=== PATIENT | male | born 1955 | race Caucasian/White ===

== ENCOUNTER 2016-05-19 15:54 | Emergency (ER) | payer BC ==
[~2016-05-19] VITALS: Ht 172.7 cm; Wt 136.2 kg
[~2016-05-19 15:54] MED LIST: BUME1TAB PO; GLC/500 PO; IBUP-1050 PO; INSDGI SC; LISI20TA3 PO; NVLGI SC; SILD100T PO
[2016-05-19 16:00] VITALS: TEMP 36.6; Ht 172.7 cm; Wt 136.2 kg
[2016-05-19] MEDS ORDERED: METF-384 PO (16:20)
[2016-05-19 16:23] VITALS: O2SAT 96
[2016-05-19 16:35] LABS: BASO % 0.7 %; BASO ABS # 0.05 K/uL (0-0.2); COMPLETE YES; EOS % 2.1 %; HEMATOCRIT 41.7 % (42-52); IG% 0.3 %; LYMPH % 26.9 %; LYMPH ABS # 2.04 K/uL (1.2-3.4); MEAN CELL VOLUME 86.9 fL (80-100); MEAN CORPUSCULAR HEMOGLOBIN 31.3 pg (25-34); MEAN PLATELET VOLUME 9.3 fL (7.4-10.4); PLATELET COUNT 263 K/uL (130-400); WHITE BLOOD COUNT 7.59 K/uL (4.8-10.8)
--- NOTE | 2016-05-19 16:37 | DIAGNOSTIC IMAGING REPORT ---
SINGLE VIEW CHEST CLINICAL HISTORY: Fever. Sepsis. FINDINGS: An AP, portable, upright chest radiograph is compared to study dated 09/25/2014 and correlated with chest CT dated 02/13/2016. The examination is degraded by portable technique, apical lordotic positioning, large body habitus, and patient rotation. The heart is enlarged and there is atherosclerotic calcification of the thoracic aorta. The pulmonary vasculature is noncongested. The there is mild bibasilar atelectasis. No airspace consolidation or large pleural effusion is identified. No pneumothorax is seen. The skeletal structures are osteopenic. Degenerative change is noted in the shoulders and thoracic spine. IMPRESSION: Cardiac enlargement with no acute cardiopulmonary abnormality. Electronically signed by: Hi Machado M.D. 05/19/2016 4:35 PM Dictated Date/Time: 05/19/2016 4:34 PM
[2016-05-19 16:49] LABS: PARTIAL THROMBOPLASTIN RATIO 0.9; PROTHROMBIN TIME (PATIENT) 10.6 SECONDS (9.0-12.0)
[2016-05-19 16:54] LABS: ALT/SGPT 38 U/L (12-78); AST/SGOT 17 U/L (15-37); BLOOD UREA NITROGEN 22 mg/dl (7-18); BUN/CREATININE RATIO 20.4 (10-20); CARBON DIOXIDE 24 mmol/L (21-32); CHLORIDE 105 mmol/L (98-107); GLUCOSE 151 mg/dl (70-99); POTASSIUM 4.4 mmol/L (3.5-5.1); SODIUM 140 mmol/L (136-145)
[2016-05-19 17:05] LABS: ALKALINE PHOSPHATASE 66 U/L (45-117); CKMB/CK RATIO 1.8 (0-3.0)
--- NOTE | 2016-05-19 17:47 | EMERGENCY ROOM VISIT NOTE ---
History Report prepared by Nasim: Amada Gonzalez Under the Supervision of: Dr. Navarro Alvarado D.O. First contact with patient: 16:04 Chief Complaint: CARDIAC ASSESSMENT Stated Complaint: CHEST PRESSURE, SWEATING, SOB, RAPID HEARTBEAT History of Present Illness The patient is a 61 year old male who presents to the Emergency Room with complaints of persistent chest pressure since 1100 this morning. He states that he currently feels "crappy". He has a history of PVCs and some SVT. The patient reports that he is also experiencing shortness of breath and diaphoresis. He denies any nausea. He follows with a heart rhythm specialist and takes Tambocor and metoprolol. He reports that he took medications this morning, but the pressure is still present. He experiences this pressure regularly, but states that the episodes are usually shorter. He has previously had a cardiac catheterization on February 17 of last year. The patient states that he does not have coronary artery disease. The patient denies being on aspirin or any blood thinners. Source of History: patient Onset: 1100 this morning Position: chest Quality: pressure Timing: other (persistent) Associated Symptoms: + SOB, + diaphoresis, No nausea Review of Systems See HPI for pertinent positives & negatives. A total of 10 systems reviewed and were otherwise negative. Past Medical & Surgical Medical Problems: (1) Diabetes (2) Diverticulitis (3) Diverticulitis (4) Hypertension (5) Kidney stones Family History FH: heart disease Gallbladder disease Hypertension Social History Smoking Status: Never Smoker Alcohol Use: none Drug Use: none Marital Status: Housing Status: lives with significant other Occupation Status: employed Current/Historical Medications Scheduled Bumetanide (Bumex), 0.5 MG PO QAM Insulin Aspart (Novolog), 15 UNITS SC UD Insulin Glargine (Lantus), 40 UNITS SC AMPM Lisinopril (Prinivil), 20 MG PO QAM Metformin Hcl (Glucophage), 1,500 MG PO DAILY Scheduled PRN Ibuprofen (Advil), 800 MG PO BID PRN for Pain Allergies Coded Allergies: No Known Allergies (Verified , 05/19/16) Physical Exam Vital Signs Date Time Temp Pulse Resp B/P Pulse Ox O2 Delivery O2 Flow Rate FiO2 05/19/16 17:38 60 16 160/79 99 Nasal Cannula 2.0 05/19/16 17:15 55 05/19/16 16:46 Nasal Cannula 2.0 05/19/16 16:23 96 Room Air 05/19/16 16:21 92 18 141/45 96 Room Air 05/19/16 16:00 36.6 61 20 147/80 96 Room Air Physical Exam CONSTITUTIONAL/VITAL SIGNS: Reviewed / noted above. GENERAL: Non-toxic in appearance. INTEGUMENTARY: Warm, dry, and [place]. HEAD: Normocephalic. EYES: without scleral icterus or trauma. ENT/OROPHARYNX: clear and moist. LYMPHADENOPATHY/NECK: Is supple without lymphadenopathy or meningismus. RESPIRATORY: Lungs clear and equal. CARDIOVASCULAR: Regular rate and slightly irregular rhythm. GI/ABDOMEN: Soft and nontender. No organomegaly or pulsatile mass. No rebound or guarding. Normal bowel sounds. EXTREMITIES: Warm and well perfused. BACK: No CVA tenderness. NEUROLOGICAL: Intact without focal deficits. PSYCHIATRIC: normal affect. MUSCULOSKELETAL: Normally developed with good muscle tone. Medical Decision & Procedures ER Provider Diagnostic Interpretation: X ray results and stated below per my interpretation and radiology interpretation. SINGLE VIEW CHEST CLINICAL HISTORY: Fever. Sepsis. FINDINGS: An AP, portable, upright chest radiograph is compared to study dated 09/25/2014 and correlated with chest CT dated 02/13/2016. The examination is degraded by portable technique, apical lordotic positioning, large body habitus, and patient rotation. The heart is enlarged and there is atherosclerotic calcification of the thoracic aorta. The pulmonary vasculature is noncongested. The there is mild bibasilar atelectasis. No airspace consolidation or large pleural effusion is identified. No pneumothorax is seen. The skeletal structures are osteopenic. Degenerative change is noted in the shoulders and thoracic spine. IMPRESSION: Cardiac enlargement with no acute cardiopulmonary abnormality. Electronically signed by: Hi Machado M.D. 05/19/2016 4:35 PM Laboratory Results 05/19/16 16:15 Red Blood Count 4.80, Mean Corpuscular Volume 86.9, Mean Corpuscular Hemoglobin 31.3, Mean Corpuscular Hemoglobin Concent 36.0, Mean Platelet Volume 9.3, Neutrophils (%) (Auto) 62.0, Lymphocytes (%) (Auto) 26.9, Monocytes (%) (Auto) 8.0, Eosinophils (%) (Auto) 2.1, Basophils (%) (Auto) 0.7, Neutrophils # (Auto) 4.71, Lymphocytes # (Auto) 2.04, Monocytes # (Auto) 0.61, Eosinophils # (Auto) 0.16, Basophils # (Auto) 0.05 05/19/16 16:15 Test 05/19/16 16:15 White Blood Count 7.59 K/uL (4.8-10.8) Red Blood Count 4.80 M/uL (4.7-6.1) Hemoglobin 15.0 g/dL (14.0-18.0) Hematocrit 41.7 % (42-52) Mean Corpuscular Volume 86.9 fL (80-100) Mean Corpuscular Hemoglobin 31.3 pg (25-34) Mean Corpuscular Hemoglobin Concent 36.0 g/dl (32-36) Platelet Count 263 K/uL (130-400) Mean Platelet Volume 9.3 fL (7.4-10.4) Neutrophils (%) (Auto) 62.0 % Lymphocytes (%) (Auto) 26.9 % Monocytes (%) (Auto) 8.0 % Eosinophils (%) (Auto) 2.1 % Basophils (%) (Auto) 0.7 % Neutrophils # (Auto) 4.71 K/uL (1.4-6.5) Lymphocytes # (Auto) 2.04 K/uL (1.2-3.4) Monocytes # (Auto) 0.61 K/uL (0.11-0.59) Eosinophils # (Auto) 0.16 K/uL (0-0.5) Basophils # (Auto) 0.05 K/uL (0-0.2) RDW Standard Deviation 44.0 fL (36.4-46.3) RDW Coefficient of Variation 13.9 % (11.5-14.5) Immature Granulocyte % (Auto) 0.3 % Immature Granulocyte # (Auto) 0.02 K/uL (0.00-0.02) Prothrombin Time 10.6 SECONDS (9.0-12.0) Prothromb Time International Ratio 1.0 (0.9-1.1) Activated Partial Thromboplast Time 23.3 SECONDS (21.0-31.0) Partial Thromboplastin Ratio 0.9 Anion Gap 11.0 mmol/L (3-11) Est Creatinine Clear Calc Drug Dose 92.9 ml/min Estimated GFR () 82.4 Estimated GFR (Non- 71.1 BUN/Creatinine Ratio 20.4 (10-20) Calcium Level 9.0 mg/dl (8.5-10.1) Total Bilirubin 0.4 mg/dl (0.2-1) Direct Bilirubin < 0.1 mg/dl (0-0.2) Aspartate Amino Transf (AST/SGOT) 17 U/L (15-37) Alanine Aminotransferase (ALT/SGPT) 38 U/L (12-78) Alkaline Phosphatase 66 U/L (45-117) Total Creatine Kinase 101 U/L (39-308) Creatine Kinase MB 1.8 ng/ml (0.5-3.6) Creatine Kinase MB Ratio 1.8 (0-3.0) Troponin I < 0.015 ng/ml (0-0.045) Total Protein 7.1 gm/dl (6.4-8.2) Albumin 3.7 gm/dl (3.4-5.0) Lipase 187 U/L (73-393) Thyroid Stimulating Hormone (TSH) 1.280 uIu/ml (0.300-4.500) Laboratory results as stated above per my review. ECG Indication: chest pain Rate (beats per minute): 65 Rhythm: sinus rhythm Findings: PVC, other (no acute injury) Comparison ECG Date: 2015 Change: no significant change ED Course 1605: Previous medical records were reviewed. The patient was evaluated in room A3. A complete history and physical examination was performed. 1748: I reevaluated the patient. He is resting comfortable. I discussed the results and treatment plan with him. He verbalized complete understanding and agreement. He will be discharged home. Medical Decision the differential was considered includes acute myocardial infarction, acute coronary syndrome, myocarditis, pericarditis, pericardial effusions /tamponade, esophageal perforation, thoracic aortic dissection, pulmonary embolism, pneumonia, pneumothorax, pancreatitis, shingles, acute cholecystitis, perforated abdominal viscus. This is a 61-year-old male who presents to the ED with a chief complaint of chest pressure, palpitations, some shortness of breath and some sweating. The patient states that he has had similar symptoms in the past. They have not lasted this long. He states that his symptoms started today around 11 AM. He has had symptoms since that time. The patient is having the symptoms during his ED evaluation. He had a cardiac catheterization February [address] Healy that revealed mild LAD disease and an ejection fraction of 45-50%. The patient' s monitor reveals unifocal frequent PVCs. There are occasionally trigeminy and sometimes every fifth or sixth beat. His exam was otherwise normal. A 12-lead EKG was compared to a previous EKG. There was no significant change with exception of the occasional PVC. Chest x-ray was negative for acute disease. CBC did not reveal anemia or leukocytosis. Complete medical panel was unremarkable. His troponin is negative. TSH is normal. The patient was told the results of the test. He is felt to be stable for discharge and outpatient follow-up. Impression Primary Impression: PVC's (premature ventricular contractions) Scribe Attestation The scribe's documentation has been prepared under my direction and personally reviewed by me in its entirety. I confirm that the note above accurately reflects all work, treatment, procedures, and medical decision making performed by me. Departure Information Dispostion Home / Self-Care Referrals Agus Case M.D.([facility]) (PCP) Patient Instructions My [facility] Additional Instructions Follow-up with your doctor for further care and evaluation in 1-2 days. Return to the emergency department for worsening or new symptoms or any concerns. You have been examined and treated today on an emergency basis only. This is not a substitute for, or an effort to provide, complete comprehensive medical care. It is impossible to recognize and treat all injuries or illnesses in a single emergency department visit. It is therefore important that you follow up closely with your doctor. Call as soon as possible for an appointment.
[2016-05-19 18:25] VITALS: BP 176/96; PULSE 64; O2SAT 98
[2016-07-15] MEDS ORDERED: METO1TAB31 PO (10:02)
[2016-07-15] MEDS ORDERED: FLEC100T21 PO (10:04)
== END 2016-05-19 18:27 | disposition home or self-care (01) ==
LOC: C.EDB 15:56 → C.EDA 18:27
DX: I49.3 Ventricular premature depolarization (principal); Z79.899 Other long term (current) drug therapy; E11.9 Type 2 diabetes mellitus without complications; I10 Essential (primary) hypertension; Z87.442 Personal history of urinary calculi; Z82.49 Family history of ischemic heart disease and other diseases of the circulatory system; Z79.4 Long term (current) use of insulin

== ENCOUNTER 2016-07-14 11:01 | Observation (INO) | payer BC ==
[2016-07-14] VITALS (7 sets, daily range): BP systolic 129–176; BP diastolic 82–92; PULSE 60–90; TEMP 36.6–36.7; O2SAT 96–98; Ht 172.7 cm; Wt 133.4 kg
[~2016-07-14] VITALS: Ht 172.7 cm; Wt 133.4 kg
[~2016-07-14 11:01] MED LIST changes: -GLC/500 PO; +METF-384 PO; -SILD100T PO
[2016-07-14] MEDS ORDERED: METO25TA56 PO (13:13)
[2016-07-14] MEDS ORDERED: FLEC50TA20 PO (13:13)
--- NOTE | 2016-07-14 13:43 | History & Physical Bridge Note ---
H&P Re-Evaluation Bridge Note: I have examined the patient, reviewed the History & Physical and in the interval since the performance of the History & Physical I have noted the following changes of clinical significance: No changes noted
--- NOTE | 2016-07-14 13:44 | Procedure Note ---
Pre-Mod Sedation Assessment General Date of Moderate Sedation: July 14, 2016. Vital Signs: Vital Signs Past 12 Hours Date Time Temp Pulse Resp B/P Pulse Ox O2 Delivery O2 Flow Rate FiO2 07/14/16 12:38 36.7 60 16 176/82 96 Room Air Review Cardiovascular: regular rate, rhythm, + extra beats Abdomen: soft Lungs: lungs clear Airway Class: II Pre-Sedation Airway Assessment Oral Cavity: WNL Short Thick Neck: Yes Hx of Sleep Apnea: Yes Smoking Status: Never Smoker Mallampati Classification: Class II ASA Classification: Class II Procedure Planning Contraindications-for Mod Sed: None Yes Notes The planned sedation has been discussed with the patient and consent obtained. I have identified the patient, determined the appropriateness of sedation and have assessed the patient immediately prior to the procedure. All medicine(s) and interventions are by my order.
[2016-07-14] MEDS ORDERED: HEPARIN SOD (PORCINE) 1000 UNIT/ML 10 ML VIAL ONE ×2 (14:13→15:28)
[2016-07-14] MEDS ORDERED: ISOPROTERENOL 200 MCG / 50ML D5W IV ONE (14:32)
[2016-07-14] MEDS ORDERED: HEPARIN 25000 UNIT/500 ML D5W ONE (14:44)
[2016-07-14] MEDS ORDERED: FENTANYL CITRATE INJ 50 MCG/1 ML 2 ML VIAL ONE (15:09)
[2016-07-14] MEDS ORDERED: MIDAZOLAM HCL 5 MG/ML 1 ML VIAL ONE (15:09)
--- NOTE | 2016-07-14 15:39 | HISTORY & PHYSICAL EXAMINATION ---
DATE OF ADMISSION: 07/14/2016 HISTORY OF PRESENT ILLNESS: This is a 61-year-old gentleman who I saw in my office back in May due to symptomatic PVCs refractory to flecainide. He was scheduled to have a PVC ablation; however, he ended up with bronchitis, so the PVC ablation was rescheduled until today. He continues to feel symptomatic with the PVCs, having palpitations and some dyspnea on exertion and some generalized fatigue with bradycardia. PAST MEDICAL HISTORY: Obstructive sleep apnea, on CPAP; hypertension; diabetes; PVCs; sinus bradycardia. PAST SURGICAL HISTORY: Arthroscopy of the knee in the left knee x2, spine surgery L4-S1, shoulder arthroscopy on the left, anal surgery status post anal fistula repair x2, drain and incision of a perirectal abscess, tonsillectomy, lumbar laminectomy of L3-L5, colonoscopy. HOME MEDICATIONS: Bumex 0.5 mg daily, metoprolol 25 mg twice a day, flecainide 50 mg twice a day, NovoLog insulin, Lantus 40 units in the morning and 40 units in the afternoon or in the evening, metformin, and lisinopril. ALLERGIES: No known drug allergies. FAMILY HISTORY: His mother had cancer. Father had cirrhosis of the liver, nonalcoholic. SOCIAL HISTORY: He is . He is a lifelong nonsmoker. No significant alcohol use. REVIEW OF SYSTEMS: Positive for shortness of breath, chest pain, palpitations, fatigue, dizziness and lightheadedness. Otherwise, all other 10-point review of systems reviewed and essentially negative at this time. PHYSICAL EXAMINATION: VITAL SIGNS: Temperature 36.7 degrees Celsius, heart rate 60, respirations 16, blood pressure 176/82, oxygen saturation 96%. GENERAL: He is awake, alert and oriented x3, in no acute distress, sitting up in the bed comfortably. HEENT: Normocephalic, atraumatic. Extraocular motion intact. Sclerae nonicteric. Mucous membranes moist. NECK: Supple, no JVD. CARDIOVASCULAR: Normal S1, S2. Regular rate and rhythm. No murmur. Positive rare occasional PVC. PULMONARY: Clear to auscultation bilaterally. No wheezes, rales or rhonchi. ABDOMEN: Positive bowel sounds, soft, nontender, nondistended. EXTREMITIES: No clubbing or cyanosis about the fingers. No edema bilateral lower extremities. Peripheral pulses intact. NEUROLOGIC: Grossly intact. SKIN: Grossly intact. PERTINENT TESTING: Holter monitor in May 2016 on flecainide 24-hour monitor, he had sinus rhythm with right bundle branch block, rare APCs and frequent PVCs about 11% in the 24-hour period and his symptoms correlated with PVCs. EKG 05/19/2016 at [facility], sinus rhythm at 65 beats per minute, PVCs, and right bundle branch block. EKG on 12/22/2015 sinus rhythm with PVCs, he receives superior access with an early R to S transition in V2 and left bundle morphology. Echocardiogram in March 2016; LV cavity size mildly enlarged, mild concentric LVH, EF is estimated to be 50% to 54%, right ventricle appears mildly dilated in some views, normal systolic function, left ventricular diastolic dysfunction grade 1, mild aortic valve sclerosis but no stenosis, and no other significant valvular pathology. Cardiac catheters, a Zio Patch in February 2016; frequent PVCs unifocal with 9.5% over the 2-week time, some SVT. Cardiac catheterization at [facility] in February 2017; left main is okay, LAD luminal irregularities, circumflex okay, RCA is a dominant vessel and is okay. Ejection fraction by the LV gram was 40% to 45%. His LVEDP was elevated. IMPRESSION: 1. Premature ventricular contractions, symptomatic unifocal with periodic early R to S transition in V2 and a left bundle morphology. 2. Sinus bradycardia. 3. Right bundle branch block. 4. Hypertension. 5. Mild nonischemic cardiomyopathy, ejection fraction 50%. 6. Diabetes. 7. Obstructive sleep apnea on CPAP. PLAN: Recommend PVC ablation. Discussed the procedure and the risks and benefits of the procedure. Risks include but not limited to sudden cardiac , arrhythmias, cerebrovascular accident, myocardial infarction, injury to blood vessels, chamber of the heart valves or [place] electrical system where he would need a permanent pacemaker, bleeding and infection. The patient understood these risks and agreed to go ahead with the procedure as planned. Informed consent was obtained.
--- NOTE | 2016-07-14 16:48 | Procedure Note ---
Post-Mod Sedation Assessment General Date of Moderate Sedation July 14, 2016. Vital Signs: Vital Signs Past 12 Hours Date Time Temp Pulse Resp B/P Pulse Ox O2 Delivery O2 Flow Rate FiO2 07/14/16 16:30 64 18 154/90 99 Mask 3 07/14/16 12:38 36.7 60 16 176/82 96 Room Air Review - Discharge Criteria Vital Signs Stable: Yes Alert/Oriented/Conversant: Yes Returned to Baseline Mental St: Yes Nausea Absent/Minimal: Yes Pain/Discomfort/Absent/Minimal: Yes Normal/Baseline Respirations: Yes Active Bleeding?: No Pt Received D/C Instructions: N/A Prescriptions Given: None Specific Proced. D/C Criteria Distal Pulses Present (Cardiac: Yes Groin site assessed-Card Cath: Yes Voided Prior To Discharge: Yes Discharged Patients Adult Escort/Transportation: N/A
--- NOTE | 2016-07-14 16:50 | [facility] Post Operative Brief Note ---
Immediate Operative Summary Operative Date July 14, 2016. Pre-Operative Diagnosis PVC Post-Operative Diagnosis PVC ORIGINATING FROM LV RIGHT NEAR LEFT SIDED HIS BUNDLE REGION Procedure(s) Performed EPS, 3D MAPPING OF RV AND LV PVCS Surgeon MIGUEL FIELDS Wheat Washer Surgeon(s) NONE Estimated Blood Loss <5CC Findings SEE OFFICIAL REPORT Fluids (cc crystalloids) 400CC Specimens NONE Drains NONE Anesthesia 3MG VERSED AND 75MCG FENTANYL Complication(s) None Disposition PCU
--- NOTE | 2016-07-14 16:51 | Discharge Instructions ---
Discharge Instructions Date of Service July 14, 2016. Admission Reason for Admission: Frequency Pvc's, Bradycardia With Ablation, Dr alford Discharge Discharge Diagnosis / Problem: PVCS ORIGINATING FROM LV HIS BUNDLE REGION Discharge Goals Goal(s): Improve function Activity Recommendations Activity Limitations: as noted below Lifting Limitations: no more than 10 pounds Exercise/Sports Limitations: as tolerated May Resume Sexual Activity: after one week Shower/Bathe: tomorrow Driving or Machine Use: resume 1 day after discharge . Instructions / Follow-Up Instructions / Follow-Up ACTIVITY RECOMMENDATIONS: It is common to feel weak and fatigue for a few days. * Do not drive or operate any motorized equipment for the next 1 day. * Limit stair usage (2 or 3 trips a day only) for the next three days. * Do not lift anything heavier than 10 pounds for the next 7 days. * Do not engage in vigorous exercise or any sports for the next five days. * You may shower the day after your procedure, but do not immerse the area for three days. Cleanse the site gently with soap and water. SPECIAL CARE INSTRUCTIONS: * You may replace the pressure dressing or band-aid the morning after the procedure. * After your procedure, it is normal to have a small bruise or small lump at the site. Examine your site daily for any change in the bruise or lump, redness, swelling, drainage or numbness. Notify your doctor if any change. BLEEDING: * If there is a small amount of bleeding at the site, lie down and apply firm pressure with a clean cloth for ten minutes. When the bleeding stops, lie quietly keeping the procedure limb straight for six hours. Notify your doctor as soon as possible. * If the bleeding does not stop after ten minutes or if there is a large amount of bleeding or spurting, call 911 immediately. Continue to lie down and hold firm pressure until help arrives. SKIN IRRITATION: * You may experience some redness and/or swelling in the area where radiation was administered. If any skin irritation occurs, please contact your family physician. FOLLOW UP VISIT: Keep any scheduled doctor appointments. Current Hospital Diet Patient's current hospital diet: Diabetes Type 2 Diet Discharge Diet Recommended Diet: Diabetes Type 2 Diet Procedures Procedures Performed: EPS, 3D MAPPING OF RV AND LV PVCS Pending Studies Studies pending at discharge: no Medical Emergencies . Who to Call and When: Medical Emergencies: If at any time you feel your situation is an emergency, please call 911 immediately. . Non-Emergent Contact Non-Emergency issues call your: Injection Machine Operator . . "Provider Documentation" section prepared by Mckayla Perez. . VTE Core Measure Inpt VTE Proph given/why not?: Treatment not indicated
--- NOTE | 2016-07-14 16:57 | Discharge Summary ---
Discharge Summary Date of Service July 14, 2016. Discharge Summary Admission Date: 07/14/2016 Discharge Date: July 15, 2016 Discharge Disposition: Home Principal Diagnosis: PVCS ORIGINATING FROM THE LV HIS BUNDLE REGION Secondary Diagnoses/Problems: SINUS BRADYCARDIA RBBB HTN DM MARY ON CPAP Procedures: EPS, 3D MAPPING PVCS FROM LV AND RV AND 3D MAPPING OF LV HIS BUNDLE REGION Medication Reconciliation Continued Medications: Bumetanide (Bumex) 1 Mg Tab 0.5 MG PO QAM, #45 Ibuprofen (Advil) 200 Mg Tab 800 MG PO BID PRN for Pain, TAB Insulin Aspart (Novolog) Inj 15 UNITS SC UD, 0 Refills patient takes 15 units before meals and bed and ajusts as needed Insulin Glargine (Lantus) 100 Unit/Ml Inj 40 UNITS SC AMPM, VIAL Lisinopril (Prinivil) 20 Mg Tab 20 MG PO QAM, TAB Metformin Hcl (Glucophage) 1,000 Mg Tab 1500 MG PO DAILY, TAB Metoprolol Tartrate (Lopressor) (Lopressor) 25 Mg Tab 25 MG PO BID, TAB Discontinued Medications: Flecainide (Tambocor) 50 Mg Tab 50 MG PO BID, TAB Admission Information Physical Exam (per Admitting): AAOX3, NAD NC/AT, EOMI SUPPLE, NO JVD NRL S1/S2, NO MURMUR RARE PVC CTA B/L NO W/R/R SOFT, NT/ND NO EDEMA B/L NO FOCAL DEFICIT Hospital Course Pt admitted for elective PVC ablation. Pt underwent EPS with 3d mapping of the PVCs where the PVCs were found to be originating from the LV in close proximity to the left sided his bundle region so no ablation was performed. Pt was monitored overnight and discharged home following day. We did stop his flecainide but continued his metoprolol. Total time spent on discharge = This includes examination of the patient, discharge planning, medication reconciliation, and communication with other providers. Discharge Instructions ACTIVITY RECOMMENDATIONS: It is common to feel weak and fatigue for a few days. * Do not drive or operate any motorized equipment for the next 1 day. * Limit stair usage (2 or 3 trips a day only) for the next three days. * Do not lift anything heavier than 10 pounds for the next 7 days. * Do not engage in vigorous exercise or any sports for the next five days. * You may shower the day after your procedure, but do not immerse the area for three days. Cleanse the site gently with soap and water. SPECIAL CARE INSTRUCTIONS: * You may replace the pressure dressing or band-aid the morning after the procedure. * After your procedure, it is normal to have a small bruise or small lump at the site. Examine your site daily for any change in the bruise or lump, redness, swelling, drainage or numbness. Notify your doctor if any change. BLEEDING: * If there is a small amount of bleeding at the site, lie down and apply firm pressure with a clean cloth for ten minutes. When the bleeding stops, lie quietly keeping the procedure limb straight for six hours. Notify your doctor as soon as possible. * If the bleeding does not stop after ten minutes or if there is a large amount of bleeding or spurting, call 911 immediately. Continue to lie down and hold firm pressure until help arrives. SKIN IRRITATION: * You may experience some redness and/or swelling in the area where radiation was administered. If any skin irritation occurs, please contact your family physician. FOLLOW UP VISIT: Keep any scheduled doctor appointments.
[2016-07-14] MEDS ORDERED: ACETAMINOPHEN 325 MG TAB PO PRN (17:00)
[2016-07-14] MEDS ORDERED: IBUPROFEN 800 MG TAB PO PRN (17:00)
[2016-07-14] MEDS ORDERED: IV FLUIDS COMPLETED PRN (17:30)
[2016-07-14] MEDS ORDERED: ONDANSETRON INJ 2 MG/ML 2 ML VIAL ONE (17:42)
[2016-07-14] MEDS ORDERED: MoRPHine SULFATE 2 MG/ML CARP ONE (18:16)
[2016-07-14] MEDS ORDERED: NURSING VERBAL MED ORDER ONE (18:45)
[2016-07-14] MEDS ORDERED: PHARMACY GLYCEMIC MGMT CONSULT PRN (19:30)
[2016-07-14] MEDS: METOPROLOL TARTRATE 25 MG TAB PO SCH (20:45)
[2016-07-14] MEDS ORDERED: GLUCOSE 40% GEL 15 GM TUBE PO PRN (21:00)
[2016-07-14] MEDS ORDERED: GLUCOSE 10 TABS/TUBE PO PRN (21:00)
[2016-07-14] MEDS ORDERED: GLUCAGON FOR INJ 1 MG VIAL SQ PRN (21:00)
[2016-07-14] MEDS ORDERED: DEXTROSE 50% 50 ML SYR IV PRN (21:00)
[2016-07-14] MEDS: INSULIN ASPART 100 UNITS/ML 3 ML PEN SC SCH (21:18)
[2016-07-14] MEDS: INSULIN GLARGINE SOLOSTAR 100 UNITS/ML 3 ML PEN SC SCH (22:05)
[2016-07-15] VITALS: BP 114/70; PULSE 56; TEMP 36.6; O2SAT 96
[2016-07-15 04:00] VITALS: BP 122/73; PULSE 54; TEMP 36.7; O2SAT 96
--- NOTE | 2016-07-15 06:56 | OPERATIVE REPORT ---
DATE OF OPERATION: 07/14/2016 PREOPERATIVE DIAGNOSIS: Symptomatic premature ventricular contractions. POSTOPERATIVE DIAGNOSIS: Same. PROCEDURE: Electrophysiology study, 3D mapping of the right ventricle and left ventricle for isolation of origin of PVCs. SURGEON: Mckayla Perez DO AUTOMATIC DRILLER AND REAMER: None. ANESTHESIA: Monitored conscious sedation given under my supervision. Administering nurse was Javad Samson. Start time 1510 and end time 1630, a total of 3 mg of Versed and 75 mcg of fentanyl. INTRAVENOUS FLUIDS: 400 mL. URINE OUTPUT: Not applicable. SPECIMENS: None. FINDINGS: See below. COMPLICATIONS: None. CONDITION: Stable. ESTIMATED BLOOD LOSS: Less 5 mL. INDICATIONS FOR PROCEDURE: This is a 61-year-old gentleman with a past medical history of diabetes, hypertension, right bundle branch block, obstructive sleep apnea on CPAP, sinus bradycardia, proximal short brief asymptomatic and frequent PVCS on the Holter monitor about 10% within 24-hour period and ejection fraction of 50-55%, global. The patient was recommended to possible PVC ablation and after no improvement in his PVCs with flecainide. CONSENT: Consent was obtained prior to the patient going into the electrophysiology lab. The patient was risk, benefits, alternatives to the procedure. Risks include but not limited to sudden cardiac ; cardiac arrhythmias; cerebrovascular accident; myocardial infarction; injury to the blood vessels, chamber of the heart, valves or the [place] electrical system where he would need a permanent pacemaker; bleeding or infection. The patient understood these risks and agreed to go to the procedure as planned. Informed consent was obtained. DESCRIPTION OF THE PROCEDURE: The patient was brought into the electrophysiology lab in fasting state. He was connected to continuous cardiac surgeon. Timeout was performed to ensure patient's identity and procedure correctly. The patient was prepped and draped over the bilateral groins in normal surgical standard fashion. Monitored conscious sedation was given throughout the procedure for patient's comfort level. [place] precautions were maintained throughout the procedure. A 10 mL of 1% lidocaine were given in the right femoral groin. Using modified Seldinger technique, venous access was obtained. Initially, a right femoral venous 8-Albanian sheath followed by 'Rock' [employer] ThermoCool irrigation ablation catheter DF curve. Initially, we were going to use the PentaRay; however, the connector were getting the signals was no longer available in the lab, so we did not use a PentaRay. With the ablation catheter, I started mapping the PVCs from the right ventricle outflow tract region. There were no real significant early signals. Since he was not having that many PVCs I initially started isuprel at 2 mcg per minute; however, that seem to lessen the PVCs even more and the patient never got sedation yet, so we stopped the isuprel. I then got femoral arterial access from the right femoral artery via the modified Seldinger technique and put an 8-Albanian sheath in that. I then 3D mapped the LVOT area and the LV septum of the few PVCs and I did some pace mapping. We also did 3D mapping of the His bundle region from the LV as we found His on our LV while we were 3D mapping the LV. The PVCs earliest site came from the right near the His on the LV side a little superior to it and pace mapping in that region was about 95% and we had a QS on our unipolar and we were about 40-50 milliseconds pre-QRS when we had the PVC. I did go up a little bit more superior to the His and I gave one ablation for a total of 30 seconds at 15 [address]aza above the His. There was no His on my distal ablation catheter. This obviously did not do anything for the PVCs. I then continued to move the ablation catheter around and map and as I was over the His on the left side, I did create a mechanical junctional rhythms at times and it was at this point that I opted to start anymore 3D mapping and pursuing the PVCs from the left side. I then got a second venous access using the modified Seldinger technique into the right femoral vein and put a 6-Albanian sheath through that. I then had a Kita quad catheter position in the high right atrium and eventually moved to the right ventricular apex and I had Hisser catheter positioned over the His bundle from the right ventricle and I performed electrophysiology study. Of note, the signal over the Hisser catheter which was positioned over the His bundle from the right side were very fractionated A and B. The RI interval was 150 milliseconds, QRS 150 milliseconds, QT 390 milliseconds. The sinus cycle length 922 milliseconds. AH 74 milliseconds. HV from the right side was 72 milliseconds. HV from the left side was 44 milliseconds. AV Wenckebach was found to be 350 milliseconds, AV node ERP was 600/240 and 400/280. The atrial ERP was less than or equal to 600/200 and 400/200. The right ventricular ERP was 600/200 and 400/200. The catheters were then all removed from the heart and once his ACT came down, the sheaths were pulled using manual compression to establish hemostasis. IMPRESSION: 1. Unifocal premature ventricular contractions originating from the left ventricle on the septal region right near the left-sided His bundle so ultimately no ablation was performed. 2. Disease signals over the His bundle region from the right side. PLAN: Monitor patient overnight, 12-lead ECG. Increase flecainide to 100mg BID. He should still follow up with me in 1 month. He should not do any heavy lifting or squatting for 1 week. I attest to the content of the Intraoperative Record and any orders documented therein. Any exceptions are noted below. PARISA
[2016-07-15 07:06] LABS: ESTIMATED AVERAGE GLUCOSE 160 mg/dl; HA1C FLAG Normal (Normal)
[2016-07-15] MEDS: INSULIN ASPART 100 UNITS/ML 3 ML PEN SC SCH (07:57)
[2016-07-15] MEDS: METOPROLOL TARTRATE 25 MG TAB PO SCH (07:58)
[2016-07-15] MEDS: INSULIN GLARGINE SOLOSTAR 100 UNITS/ML 3 ML PEN SC SCH (07:59)
[2016-07-15 08:18] VITALS: BP 131/69; PULSE 50; TEMP 36.9; O2SAT 97
[2016-07-15] MEDS ORDERED: BUMETANIDE 1 MG TAB PO SCH (09:00)
[2016-07-15] MEDS ORDERED: METFORMIN HCL 500 MG TAB PO SCH (09:00)
[2016-07-15] MEDS ORDERED: LISINOPRIL 20 MG TAB PO SCH (09:00)
[2016-07-15] MEDS ORDERED: METO-478 PO (10:02)
[2016-07-15] MEDS ORDERED: FLEC100T21 PO (10:04)
[2016-07-15 10:38] VITALS: BP 131/69; PULSE 50; TEMP 36.9; O2SAT 97
--- NOTE | 2016-07-15 10:41 | Pharmacy Progress Note ---
Glycemic Control Intl Consult Date of Service July 15, 2016. Scope Glycemic Pharmacist consulted by Dr Perez on 07/14/16 for glycemic control and to write orders per [facility] inpatient glycemic control protocol Objective Weight (Kilograms): 133.400 Accuchecks BSG (last 24hrs): Test 07/14/16 13:45 07/14/16 14:23 07/14/16 15:02 07/14/16 15:24 Bedside Glucose 84 mg/dl (70-99) 93 mg/dl (70-99) 270 mg/dl (70-99) 96 mg/dl (70-99) Test 07/14/16 15:41 07/14/16 16:04 07/14/16 18:31 07/14/16 20:08 Bedside Glucose 118 mg/dl (70-99) 206 mg/dl (70-99) 111 mg/dl (70-99) 121 mg/dl (70-99) Test 07/15/16 06:26 Bedside Glucose 105 mg/dl (70-99) HbA1c Test 07/15/16 05:50 Hemoglobin A1c 7.2 %(4.5-5.6) H Recent Pertinent Medications Outpatient Anti-diabetic Regimen: * Lantus 40 units SQ BID * NovoLog 10-15 units SQ AC * Metformin 1500mg PO daily The patient is currently receiving: * Basal insulin: * Lantus 20 units every 12 hours * Bolus Insulin: * NovoLog Correction per scale AC/HS - Goal Range: Low 120 mg/dL - High 160 mg/dL - Correction Factor: 15 mg/dL/unit - Carb ratio of 1 unit per 5 grams CHO consumed * Oral Agents: * held on admission Risk Factors for Insulin Resistance: * IVF: being diuresed * Recent Surgery/Procedure: EP procedure 07/14/16 * Diet: T2DM Assessment & Plan ASSESSMENT: * ADA & AACE recommend a goal blood sugar range 140-180 mg/dl for the majority of critically ill & non-critically ill patients. However, more stringent targets may be selected in individual cases. Will utilize more stringent goal of 120-160mg/dl based on patient age & comorbidities. 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 * continue reduced dose at this time as BSGs are below goal range * NovoLog continues with parameters based on outpatient total daily insulin requirements * A1c current PLAN FOR INPATIENT GLYCEMIC CONTROL: * Basal insulin: * Lantus 20 units every 12 hours * Bolus Insulin: * NovoLog Correction per scale AC/HS - Goal Range: Low 120 mg/dL - High 160 mg/dL - Correction Factor: 15 mg/dL/unit - Carb ratio of 1 unit per 5 grams CHO consumed * Oral Agents: * continue to hold RECOMMENDATIONS FOR DISCHARGE: * Likely, Mr Zamora can continue his home regimen at discharge given A1c of 7.2% * Please note that the plan above was derived based on current level of insulin resistance and hospital stress. These recommendations are appropriate for inpatient admission only. Plan of care upon discharge will need to be reassessed to avoid potential outpatient hypo/hyperglycemia. Thank you.
--- NOTE | 2016-07-15 17:02 | Cardiology Follow-Up ---
Subjective Subjective Date of Service: July 15, 2016. Pt evaluation today including: conversation w/ patient, physical exam, lab review, review of studies Problem List Medical Problems: (1) PVC's (premature ventricular contractions) Status: Acute Review of Systems Constitutional: No fever Respiratory: No dyspnea on exertion, No shortness of breath Cardiac: + palpitations, No chest pain, No edema Abdomen: No nausea Objective Vital Signs Last Vital Signs Documentation Date Time Temp Pulse Resp B/P Pulse Ox O2 Delivery O2 Flow Rate FiO2 07/15/16 10:38 36.9 50 18 97 Room Air 07/15/16 08:18 131/69 07/14/16 17:00 3 Physical Exam: General Appearance: WD/WN, no apparent distress Eyes: bilateral eyes EOMI, bilateral eyes PERRL Neck: supple, no JVD Respiratory/Chest: lungs clear, normal breath sounds Cardiovascular: regular rate, rhythm, + extra beats Abdomen: soft (right groin soft no hematoma) Extremities: no pedal edema Neurologic/Psychiatric: alert, oriented x 3 Skin: normal color, warm/dry Assessment and Plan Impression: 1. PVCs s/p PVC mapping unfortunately no ablation due to mapping etiology of PVC originating over the His bundle 2. Sinus bradycardia 3. RBBB 4. HTN 5. DM 6. MARY on CPAP Plan: -Ok for discharge home today -Increase flecainide to 100mg BID -Change metoprolol to Toprol 25mg daily -F/u in my office in 1 week Discharge planning: home Medications: Medications Administered Medications (Trade) Dose Ordered Sig/Jose Route Start Time Stop Time Status Last Admin Dose Admin Heparin Sodium/ Dextrose (Heparin 25,000 Unit/500ml D5W) 25,000 unit STK-MED ONCE .ROUTE 07/14/16 14:44 07/14/16 14:45 DC 07/14/16 14:44 25,000 UNIT Fentanyl Citrate (Fentanyl Inj) 100 mcg STK-MED ONCE .ROUTE 07/14/16 15:09 07/14/16 15:10 DC 07/14/16 15:09 75 MCG Midazolam HCl (Versed Inj) 5 mg STK-MED ONCE .ROUTE 07/14/16 15:09 07/14/16 15:10 DC 07/14/16 15:09 3 MG Heparin Sodium (Porcine) (Heparin Iv Bolus) 10,000 unit STK-MED ONCE .ROUTE 07/14/16 15:28 07/14/16 15:29 DC 07/14/16 15:28 10,000 UNIT Bumetanide (Bumex Tab) 0.5 mg QAM PO 07/15/16 09:00 07/15/16 12:09 DC 07/15/16 07:59 0.5 MG Ibuprofen (Motrin Tab) 800 mg BID PRN PO 07/14/16 17:00 07/15/16 12:09 DC 07/14/16 20:45 800 MG Insulin Aspart (novoLOG ASPART) SLIDING SCALE ACHS SC 07/14/16 21:00 07/15/16 12:09 DC 07/15/16 07:57 8 UNITS Insulin Glargine (Lantus Solostar Pen) 20 unit BID SC 07/14/16 21:00 07/15/16 12:09 DC 07/15/16 07:59 20 UNIT Lisinopril (Zestril Tab) 20 mg QAM PO 07/15/16 09:00 07/15/16 12:09 DC 07/15/16 07:58 20 MG Metformin HCl (Glucophage Tab) 1,500 mg DAILY PO 07/15/16 09:00 07/15/16 12:09 DC 07/15/16 07:59 1,500 MG Metoprolol Tartrate (Lopressor Tab) 25 mg BID PO 07/14/16 21:00 07/15/16 12:09 DC 07/15/16 07:58 25 MG Ondansetron HCl (Zofran Inj) 8 mg STK-MED ONCE .ROUTE 07/14/16 17:42 07/14/16 17:43 DC 07/14/16 17:42 8 MG Morphine Sulfate (MoRPHine SULFATE INJ) 2 mg STK-MED ONCE .ROUTE 07/14/16 18:16 07/14/16 18:17 DC 07/14/16 18:16 1 MG Lab Results: Telemetry: SR with PVCs ECG: SR RBBB Last 24 Hours Test 07/14/16 17:30 07/14/16 18:31 07/14/16 20:08 07/15/16 05:50 Kaolin Activated Coagulation Time 142 SECONDS Bedside Glucose 111 mg/dl 121 mg/dl Estimated Average Glucose 160 mg/dl Hemoglobin A1c 7.2 % Hepatitis C Antibody Screen NEG Test 07/15/16 06:26 Bedside Glucose 105 mg/dl
== END 2016-07-15 12:09 | disposition home or self-care (01) ==
LOC: C.EP 11:01 → C.2T 16:48
PROVIDERS: ADMIT Internal Medicine; ATTEND Internal Medicine
DX: I49.3 Ventricular premature depolarization (principal); R00.1 Bradycardia, unspecified; I45.10 Unspecified right bundle-branch block; I10 Essential (primary) hypertension; E11.9 Type 2 diabetes mellitus without complications; G47.33 Obstructive sleep apnea (adult) (pediatric); Z79.4 Long term (current) use of insulin; Z79.899 Other long term (current) drug therapy

== ENCOUNTER 2017-06-25 08:32 | Emergency (ER) | payer BC ==
[~2017-06-25] VITALS: Ht 172.7 cm; Wt 138.5 kg
[~2017-06-25 08:32] MED LIST changes: +FLEC100T21 PO; +METO-478 PO
[2017-06-25 08:34] VITALS: TEMP 36.4; Ht 172.7 cm; Wt 138.5 kg
--- NOTE | 2017-06-25 08:42 | EMERGENCY ROOM VISIT NOTE ---
ED Visit Note First contact with patient: 08:37 CHIEF COMPLAINT: Left lower quadrant pain HISTORY OF PRESENTING ILLNESS: This 62-year-old male presents to the emergency department with complaint of left lower quadrant pain that began yesterday. Patient states that pain has been gradually getting worse, today has been constant and worsening, feels like a ache and cramp, worse with being up and moving around, feels better with rest and lying down, currently rates as 8/10. He has been taking Advil for the pain with some improvement, last dose was around 9 PM last night. He reports a history of diverticulitis several years ago, states that this feels similar. He denies any previous abdominal surgeries. He also has a history of kidney stones, but states he has not had any urinary symptoms. He denies any fevers or chills, nausea, vomiting, diarrhea, or severe constipation. He denies any bloody or black stools. He denies any other symptoms of headache, neck pain, dizziness or syncope, chest pain, shortness of breath, back pain, or unusual rash. REVIEW OF SYSTEMS: A complete 10 point review of systems was reviewed with the patient with pertinent positives and negatives as per history of present illness. All else were negative. PAST MEDICAL HISTORY: Reviewed in chart. FAMILY HISTORY: SOCIAL HISTORY: Lives at home. Denies tobacco use. Denies alcohol use. ALLERGIES: No known allergies. PHYSICAL EXAM: CONSTITUTIONAL: Pleasant and cooperative. No acute distress. Mildly dehydrated , but otherwise well appearing and well nourished. HEENT: Normocephalic, atraumatic. Pupils equal, round and reactive to light, EOMI. TMs normal. Pharynx normal. Tacky mucous membranes. NECK: Supple, full active range of motion without discomfort. RESPIRATORY: Clear to auscultation bilaterally with no wheezing, crackles, rhonchi or stridor. Equal expansion bilaterally. CARDIOVASCULAR: Regular rate and rhythm with no murmurs, rubs or gallops. Normal peripheral perfusion. No edema. GASTROINTESTINAL: Soft, moderately tender in the left lower quadrant to palpation, abdomen is otherwise nontender, nondistended. Obese abdomen. No rebound tenderness or guarding. No palpable masses or HSM. Bowel sounds present in all quadrants. No CVA tenderness. MUSCULOSKELETAL: Full range of motion of all joints without discomfort. INTEGUMENTARY: No rash or other significant dermatologic conditions noted. NEUROLOGIC: Alert and oriented X 4 with normal affect. Normal strength and sensation in all 4 extremities. No focal neurologic deficits noted. Normal speech. Normal gait observed ED COURSE AND MEDICAL DECISION MAKING: CC: Patient presenting with complaint of left lower quadrant pain DIFFERENTIAL DIAGNOSIS: Includes, but not limited to diverticulitis, intra- abdominal abscess, bowel perforation, small bowel obstruction, colitis, gastroenteritis, pancreatitis, appendicitis, ureteral stone, UTI, pyelonephritis , among others. INTERPRETATION OF LABS: No leukocytosis, mild anemia, no significant electrolyte abnormalities, normal renal function, normal liver enzymes and lipase. UA negative. IMAGING: CT ABD/PELVIS IV CONTRAST ONLY CLINICAL HISTORY: Left lower quadrant abdominal pain. History of diverticulitis. COMPARISON STUDY: March 12, 2014 TECHNIQUE: Following the IV administration of 94 mL of Optiray-320, CT scan of the abdomen and pelvis was performed from the lung bases to the proximal femurs. Images are reviewed in the axial, sagittal, and coronal planes. IV contrast was administered without complication. A dose lowering technique was utilized adhering to the principles of ALARA. CT DOSE: 1589.01 mGy.cm FINDINGS: Lower chest: The heart is normal in size and configuration, without pericardial effusion. The lung bases and pleural spaces are clear. Liver: The contrast-enhanced liver is normal in size, contour, and attenuation. There is no intrahepatic biliary ductal dilatation. The hepatic veins and portal veins are patent. Gallbladder: Cholelithiasis Spleen: Normal in size and attenuation. Pancreas: Unremarkable. Adrenal glands: Unremarkable. Kidneys: There is symmetric renal cortical enhancement. The kidneys are normal in size without hydronephrosis. No renal, ureteral, or bladder calculi are visualized. Bowel: There are no transition zones indicate bowel obstruction. There is extensive diverticulosis. There is mild infiltration of the peridiverticular fat at the descending colon/sigmoid colon junction. The findings are consistent with acute diverticulitis. There is no evidence of abscess. The appendix is normal. Peritoneum: There is no intraperitoneal free air or abdominal ascites. Vasculature: The abdominal aorta is normal in course and caliber. Adenopathy: None. Pelvic viscera: The bladder, and pelvic viscera are unremarkable. Skeletal structures: No destructive osseous lesions are seen. There are postsurgical changes within the spine IMPRESSION: 1. Mild acute diverticulitis at the descending sigmoid junction. No evidence of pericolonic abscess 2. No evidence of bowel obstruction. No evidence of free air 3. Cholelithiasis MEDICATION RECONCILIATION: I attest that I have personally reviewed the patient 's current medication list. INITIAL VITAL SIGNS REVIEW: I reviewed the patient's initial vital signs and interpret them as follows: T: Afebrile; BP: Hypertensive; HR: Bradycardic; RR : Within normal limits; Pulse Ox: Within normal limits on room. Blood pressure screening: The patient was found to have an elevated blood pressure and was referred to their primary doctor for recheck and further treatment. SUMMARY: Patient was evaluated at bedside, history and physical exam performed. Patient is alert and oriented, no acute distress, resting calmly in the stretcher. Patient is moderately tender in the left lower quadrant, the abdomen is otherwise soft and nontender. Orders were placed at bedside for labs, UA, IV fluids for hydration, IV morphine for pain, CT abdomen/pelvis with IV contrast to evaluate for diverticulitis and other intra-abdominal abnormality. Patient discussed with Dr. Alvarado, who agrees with my assessment and plan. Labs and imaging reviewed as above, findings consistent with mild acute diverticulitis. Patient has been able to tolerate PO without difficulty, I feel that he is a reasonable patient to be discharged home on oral medications. Patient was given his first doses of Cipro and Flagyl in the ED, Rx sent to the pharmacy, and patient was educated regarding this medications. Patient reassessed multiple times throughout ED stay, he remains well-appearing , states his pain is much improved, and vitals are stable. Patient was updated on all results and plan for discharge, he was encouraged to follow-up with his primary care provider Patient was also given strict return precautions should his symptoms worsen, he verbalized understanding. Patient was discharged home in stable condition and ambulatory. Problem List Medical Problems: (1) Diabetes Status: Chronic (2) Diverticulitis Status: Chronic (3) Diverticulitis Status: Chronic (4) Hypertension Status: Chronic (5) Kidney stones Status: Resolved Current/Historical Medications Scheduled Aspirin (Aspirin Chewable), 81 MG PO DAILY Atorvastatin (Lipitor), 40 MG PO DAILY Bumetanide (Bumex), 0.5 MG PO QAM Buspirone Hcl (Buspirone Hcl), 1 TAB PO BID Ciprofloxacin Hcl (Cipro), 500 MG PO BID Gabapentin (Neurontin), 800 MG PO TID Insulin Aspart (Novolog Flexpen), 15 UNITS SQ QID Insulin Glargine (Lantus), 40 UNITS SC AMPM Lisinopril (Prinivil), 20 MG PO QAM Metformin Hcl (Glucophage), 1,500 MG PO DAILY Metronidazole (Flagyl), 500 MG PO TID Nortriptyline (Pamelor), 25-50 MG PO HS Propafenone Hcl (Propafenone Hcl Er), 1 CAP PO BID Psyllium (Metamucil Free & Natural), 1 TSP PO BID Saccharomyces Boulardii (Probiotic), 1 CAP PO DAILY Scheduled PRN Ibuprofen (Motrin), 800 MG PO BID PRN for Pain Allergies Coded Allergies: No Known Allergies (Verified , 06/25/17) Vital Signs Date Time Temp Pulse Resp B/P (MAP) Pulse Ox O2 Delivery O2 Flow Rate FiO2 06/25/17 11:14 64 18 158/83 98 Room Air 06/25/17 09:14 71 06/25/17 08:34 36.4 55 18 157/82 98 Room Air Laboratory Results 06/25/17 09:15 Red Blood Count 4.60, Mean Corpuscular Volume 87.8, Mean Corpuscular Hemoglobin 30.0, Mean Corpuscular Hemoglobin Concent 34.2, Mean Platelet Volume 9.2, Neutrophils (%) (Auto) 69.2, Lymphocytes (%) (Auto) 19.5, Monocytes (%) (Auto) 7.7, Eosinophils (%) (Auto) 2.5, Basophils (%) (Auto) 0.8, Neutrophils # (Auto) 5.34, Lymphocytes # (Auto) 1.50, Monocytes # (Auto) 0.59, Eosinophils # (Auto) 0.19, Basophils # (Auto) 0.06 06/25/17 09:15 Test 06/25/17 09:15 06/25/17 11:00 White Blood Count 7.70 K/uL (4.8-10.8) Red Blood Count 4.60 M/uL (4.7-6.1) Hemoglobin 13.8 g/dL (14.0-18.0) Hematocrit 40.4 % (42-52) Mean Corpuscular Volume 87.8 fL (80-100) Mean Corpuscular Hemoglobin 30.0 pg (25-34) Mean Corpuscular Hemoglobin Concent 34.2 g/dl (32-36) Platelet Count 269 K/uL (130-400) Mean Platelet Volume 9.2 fL (7.4-10.4) Neutrophils (%) (Auto) 69.2 % Lymphocytes (%) (Auto) 19.5 % Monocytes (%) (Auto) 7.7 % Eosinophils (%) (Auto) 2.5 % Basophils (%) (Auto) 0.8 % Neutrophils # (Auto) 5.34 K/uL (1.4-6.5) Lymphocytes # (Auto) 1.50 K/uL (1.2-3.4) Monocytes # (Auto) 0.59 K/uL (0.11-0.59) Eosinophils # (Auto) 0.19 K/uL (0-0.5) Basophils # (Auto) 0.06 K/uL (0-0.2) RDW Standard Deviation 47.3 fL (36.4-46.3) RDW Coefficient of Variation 14.7 % (11.5-14.5) Immature Granulocyte % (Auto) 0.3 % Immature Granulocyte # (Auto) 0.02 K/uL (0.00-0.02) Anion Gap 5.0 mmol/L (3-11) Est Creatinine Clear Calc Drug Dose 92.5 ml/min Estimated GFR () 81.8 Estimated GFR (Non- 70.6 BUN/Creatinine Ratio 15.2 (10-20) Calcium Level 8.5 mg/dl (8.5-10.1) Total Bilirubin 0.8 mg/dl (0.2-1) Direct Bilirubin 0.2 mg/dl (0-0.2) Aspartate Amino Transf (AST/SGOT) 14 U/L (15-37) Alanine Aminotransferase (ALT/SGPT) 26 U/L (12-78) Alkaline Phosphatase 78 U/L (45-117) Total Protein 6.8 gm/dl (6.4-8.2) Albumin 3.5 gm/dl (3.4-5.0) Lipase 119 U/L (73-393) Urine Color YELLOW Urine Appearance CLEAR (CLEAR) Urine pH 5.0 (4.5-7.5) Urine Specific [place] 1.017 (1.000-1.030) Urine Protein NEG (NEG) Urine Glucose (UA) NEG (NEG) Urine Ketones NEG (NEG) Urine Occult Blood NEG (NEG) Urine Nitrite NEG (NEG) Urine Bilirubin NEG (NEG) Urine Urobilinogen NEG (NEG) Urine Leukocyte Esterase NEG (NEG) Medications Administered Medications (Trade) Dose Ordered Sig/Jose Route Start Time Stop Time Status Last Admin Dose Admin Morphine Sulfate (MoRPHine SULFATE INJ) 4 mg NOW STAT IV 06/25/17 08:53 06/25/17 08:56 DC 06/25/17 09:30 4 MG Sodium Chloride 500 ml @ 999 mls/hr Q31M STAT IV 06/25/17 08:53 06/25/17 09:23 DC 06/25/17 09:30 999 MLS/HR Ciprofloxacin (Cipro Tab) 500 mg NOW STAT PO 06/25/17 11:42 06/25/17 11:44 DC 06/25/17 12:15 500 MG Metronidazole (Flagyl Tab) 500 mg NOW STAT PO 06/25/17 11:42 06/25/17 11:44 DC 06/25/17 12:14 500 MG Departure Information Impression Primary Impression: Diverticulitis Dispostion Home / Self-Care Condition GOOD Prescriptions Metronidazole (Flagyl) 500 Mg Tab 500 MG PO TID for Pain for 10 Days, #30 TAB For Initial Treatment Prov: Bernie Caldwell CRNP 06/25/17 Ciprofloxacin Hcl (CIPRO) 500 Mg Tab 500 MG PO BID for 10 Days, #20 TAB Prov: Bernie Caldwell CRNP 06/25/17 Referrals Agus Case M.D. ([facility]) (PCP) Patient Instructions ED Diverticulitis, [facility] Additional Instructions You have been treated in the Emergency Department for your abdominal pain. Laboratory results and imaging studies have ruled out any emergent causes for your symptoms which would warrant admission or surgery. Your abdominal CT scan today shows mild acute diverticulitis. You were prescribed ciprofloxacin and Flagyl to be taken for 10 days. These medications are antibiotics. All antibiotics have the potential to cause diarrhea, you should take a daily probiotic or eat yogurt every day to help prevent this. Stop this medication and contact a medical provider if you were to develop any significant adverse side effects including: wheezing, shortness of breath, passing out, vomiting, or a diffuse rash. Always take antibiotics as directed and COMPLETE the ENTIRE course regardless of the improvement of your symptoms. For pain control, you can use the following [id number] medicines (if >12 yo): - Regular strength (325mg/tab) Tylenol (acetaminophen) 2 tabs every 4-6 hours as needed. Do not exceed 10 tablets in a 24 hour period. Avoid taking more than 3000 mg of Tylenol per day. This includes any other sources of acetaminophen you may take on a regular basis. - Regular strength (200 mg/tab) Advil (ibuprofen) 3 tabs every 6-8 hours as needed. Do not exceed a dose of 2400 mg per day. Drink plenty of fluids to stay well hydrated. Please follow-up with your Primary Care Provider in the next few days for recheck. Return to the emergency department for severe worsening abdominal or back pain, persistent nausea/vomiting, vomiting blood, blood in your stool or urine, fevers > 101.5, severe dizziness or passing out, or any other concerns.
[2017-06-25] MEDS ORDERED: MoRPHine SULFATE 4 MG/ML 1 ML CARP\\VIAL IV STA (08:53)
[2017-06-25] MEDS ORDERED: SODIUM CHLORIDE 0.9% 500ML 500 ML IV STA (08:53)
[2017-06-25 09:28] LABS: BASO % 0.8 %; BASO ABS # 0.06 K/uL (0-0.2); EOS % 2.5 %; EOS ABS # 0.19 K/uL (0-0.5); HEMATOCRIT 40.4 % (42-52); HEMOGLOBIN 13.8 g/dL (14.0-18.0); IG# 0.02 K/uL (0.00-0.02); LYMPH % 19.5 %; MEAN CELL VOLUME 87.8 fL (80-100); MEAN CORPUSCULAR HGB CONC 34.2 g/dl (32-36); MEAN PLATELET VOLUME 9.2 fL (7.4-10.4); MONO % 7.7 %; MONO ABS # 0.59 K/uL (0.11-0.59); NEUT % 69.2 %; NEUT ABS # 5.34 K/uL (1.4-6.5); PLATELET COUNT 269 K/uL (130-400); RED CELL DISTRIBUTION WIDTH CV 14.7 % (11.5-14.5); RED CELL DISTRIBUTION WIDTH SD 47.3 fL (36.4-46.3)
[2017-06-25 09:46] LABS: ALBUMIN 3.5 gm/dl (3.4-5.0); CALCIUM 8.5 mg/dl (8.5-10.1); CREATININE 1.1 mg/dl (0.60-1.40); POTASSIUM 4.6 mmol/L (3.5-5.1)
[2017-06-25 09:49] LABS: TOTAL PROTEIN 6.8 gm/dl (6.4-8.2)
[2017-06-25] MEDS ORDERED: ASPCH81X PO (10:06)
[2017-06-25] MEDS ORDERED: SACC250C11 PO (10:06)
[2017-06-25] MEDS ORDERED: ATOR-24 PO (10:06)
[2017-06-25] MEDS ORDERED: PSYL43PO PO (10:06)
[2017-06-25] MEDS ORDERED: IBUP-1428 PO (10:06)
[2017-06-25] MEDS ORDERED: NVLGI/PEN SQ (10:06)
[2017-06-25] MEDS ORDERED: NORT25CA PO (10:06)
[2017-06-25] MEDS ORDERED: PROP1CAP PO (10:06)
[2017-06-25] MEDS ORDERED: GABA800T PO (10:06)
[2017-06-25] MEDS ORDERED: BUSP5TAB59 PO (10:06)
[2017-06-25] MEDS ORDERED: OPTIRAY 320 IV PRN (10:45)
--- NOTE | 2017-06-25 11:12 | DIAGNOSTIC IMAGING REPORT ---
CT ABD/PELVIS IV CONTRAST ONLY CLINICAL HISTORY: Left lower quadrant abdominal pain. History of diverticulitis. COMPARISON STUDY: March 12, 2014 TECHNIQUE: Following the IV administration of 94 mL of Optiray-320, CT scan of the abdomen and pelvis was performed from the lung bases to the proximal femurs. Images are reviewed in the axial, sagittal, and coronal planes. IV contrast was administered without complication. A dose lowering technique was utilized adhering to the principles of ALARA. CT DOSE: 1589.01 mGy.cm FINDINGS: Lower chest: The heart is normal in size and configuration, without pericardial effusion. The lung bases and pleural spaces are clear. Liver: The contrast-enhanced liver is normal in size, contour, and attenuation. There is no intrahepatic biliary ductal dilatation. The hepatic veins and portal veins are patent. Gallbladder: Cholelithiasis Spleen: Normal in size and attenuation. Pancreas: Unremarkable. Adrenal glands: Unremarkable. Kidneys: There is symmetric renal cortical enhancement. The kidneys are normal in size without hydronephrosis. No renal, ureteral, or bladder calculi are visualized. Bowel: There are no transition zones indicate bowel obstruction. There is extensive diverticulosis. There is mild infiltration of the peridiverticular fat at the descending colon/sigmoid colon junction. The findings are consistent with acute diverticulitis. There is no evidence of abscess. The appendix is normal. Peritoneum: There is no intraperitoneal free air or abdominal ascites. Vasculature: The abdominal aorta is normal in course and caliber. Adenopathy: None. Pelvic viscera: The bladder, and pelvic viscera are unremarkable. Skeletal structures: No destructive osseous lesions are seen. There are postsurgical changes within the spine IMPRESSION: 1. Mild acute diverticulitis at the descending sigmoid junction. No evidence of pericolonic abscess 2. No evidence of bowel obstruction. No evidence of free air 3. Cholelithiasis Electronically signed by: Stephane Mcclelland M.D. 06/25/2017 11:11 AM Dictated Date/Time: 06/25/2017 11:07 AM
[2017-06-25 11:14] VITALS: BP 158/83; PULSE 64; O2SAT 98
[2017-06-25] MEDS ORDERED: CIPR-255 PO (11:40)
[2017-06-25] MEDS ORDERED: METR-163 PO (11:40)
[2017-06-25] MEDS ORDERED: METRONIDAZOLE 250 MG TAB PO STA (11:42)
[2017-06-25] MEDS ORDERED: CIPROFLOXACIN 500 MG TAB PO STA (11:42)
--- NOTE | 2017-06-25 11:47 | EMERGENCY ROOM VISIT NOTE ---
ED Visit Note First contact with patient: 08:37 I have personally seen and evaluated the patient with the Mckenzie Caldwell [employer]. I agree with the diagnostic/management decisions and have personally been involved in these decisions and agree with the diagnosis.
== END 2017-06-25 12:12 | disposition home or self-care (01) ==
LOC: C.EDB 08:34 → C.EDA 12:12
DX: K57.92 Diverticulitis of intestine, part unspecified, without perforation or abscess without bleeding (principal); E11.9 Type 2 diabetes mellitus without complications; I10 Essential (primary) hypertension; Z79.82 Long term (current) use of aspirin; Z79.4 Long term (current) use of insulin; Z79.84 Long term (current) use of oral hypoglycemic drugs; Z79.899 Other long term (current) drug therapy

== ENCOUNTER 2021-08-10 03:35 | Inpatient (IN) ==
[2021-08-10] MEDS ORDERED: ALBUT/IPRATROP 3MG/0.5MG NEB 3 ML VIAL NEB STA (04:09)
--- NOTE | 2021-08-10 04:10 | Emergency Department Note ---
History of Present Illness General Chief complaint: Respiratory Problems Stated complaint: HARD TIME BREATHING,PAIN Time Seen by Provider: 08/10/21 03:42 History of Present Illness Maximum Pain Intensity: 7 66-year-old male presents emergency department with a greater than 1 day history of shortness of breath has been intermittent in nature. Patient also relates some throat pain. Patient states that he has been short of breath he does wear CPAP, recently had pulmonary function test and was placed on albuterol as well as fluticasone inhalers. Patient states increased shortness of breath this evening dyspnea on exertion. Patient denies any substernal chest pain radiation to left arm or neck or jaw. There were no other mitigating or alleviating factors. There is no cough. There is no recent infections. Home Medications Medication Instructions Recorded Confirmed Type aspirin 81 mg chewable tablet 81 mg PO QAM 01/01/18 11/10/18 History bumetanide 1 mg tablet 0.5 mg PO QAM 01/01/18 11/10/18 History insulin aspart U-100 100 unit/mL 1 dose SUBCUT ACHS 01/01/18 11/10/18 History (3 mL) subcutaneous pen (Novolog Flexpen U-100 Insulin aspart) insulin glargine 100 unit/mL (3 40 units SUBCUT AMPM 01/01/18 11/10/18 History mL) subcutaneous pen (Lantus Solostar U-100 Insulin) lisinopril 20 mg tablet 20 mg PO QAM 01/01/18 11/10/18 History buspirone 5 mg tablet 5 mg PO BID 02/15/18 11/10/18 History metformin 1,000 mg tablet 1,500 mg PO QAM 02/15/18 11/10/18 History ibuprofen 200 mg tablet 800 mg PO BID PRN 03/27/18 11/10/18 History lactobacillus combination no.4 3 3,000 mmu cells PO QAM 03/27/18 11/10/18 History billion cell capsule (Probiotic) propafenone 425 mg 425 mg PO Q12H 11/09/18 11/10/18 History capsule,extended release 12 hr cyclobenzaprine 10 mg tablet 10 mg PO Q8H PRN #21 tab 11/10/18 Rx oxycodone 5 mg tablet 5 - 10 mg PO Q6H #15 tab 08/30/19 Rx Allergies Allergy/AdvReac Type Severity Reaction Status Date / Time No Known Allergies Allergy Verified 10/08/19 11:06 Past Med/Surg History Medical History (Updated 08/10/21 @ 05:04 by Javier Saab DO) Anxiety Back pain Cellulitis of left leg Hepatic steatosis HLD (hyperlipidemia) Hypertension Kidney stones Morbid obesity MARY (obstructive sleep apnea) CPAP Osteoarthritis Peripheral edema PVC (premature ventricular contraction) T2DM (type 2 diabetes mellitus) Surgical History History of arthroscopy of left knee x2 History of arthroscopy of left shoulder History of cardiac cath 2006 @ [facility], no stents History of cardiac radiofrequency ablation 2018 @ [facility]--follows with [facility] History of colonoscopy History of lumbar laminectomy x2 History of tonsillectomy and adenoidectomy History of tooth extraction S/P carpal tunnel release right hand Family History Mother Mycosis fungoides Father CUENCA (nonalcoholic steatohepatitis) Other Cancer Gallbladder disease Hypertension Social History Smoking Status: Never smoker Second Hand Exposure: Yes (during work environment); Hx Alcohol Use: No Hx Substance Use: No Preferred Language: Nicaraguan Communication Ability: Effective Visual Impairment: No Limitations Hearing Ability: Normal Proposal Coordinator Required: No Beliefs That Will Affect Care: None marital status: Current Living Situation: Spouse Feels Safe at Home: Yes Assistive Devices: CPAP and Glasses Review of Systems A total of 10 systems reviewed and were otherwise negative Respiratory: + dyspnea Cardiovascular: no chest pain Gastrointestinal: no abdominal pain Physical Exam Vital Signs Vital Signs - 24 hr 08/10/21 03:36 08/10/21 03:39 08/10/21 03:40 Temperature 36.7 C Temperature Source Temporal Artery Scan Pulse Rate 68 66 Pulse Rate [Finger] 65 Pulse Rhythm Regular Respiratory Rate 26 H 20 Respiratory Effort / Characteristics Non-Labored Non-Labored Spontaneous Respiratory Depth Normal Normal Respiratory Pattern Regular Blood Pressure 142/89 H Blood Pressure [Right Arm] 142/83 H Blood Pressure Mean 106 Blood Pressure Mean [Right Arm] 102 Blood Pressure Position Sitting Pulse Oximetry 98 98 98 Oxygen Delivery Method Room Air Room Air Room Air Sepsis Recent Fever Within 48 Hours No Sepsis New/Unexplained Change in Mental Status No Sepsis Action Taken by Nursing No Action Required 08/10/21 04:24 Temperature Temperature Source Pulse Rate Pulse Rate [Finger] 67 Pulse Rhythm Respiratory Rate 16 Respiratory Effort / Characteristics Spontaneous Short of Breath Respiratory Depth Respiratory Pattern Blood Pressure Blood Pressure [Right Arm] Blood Pressure Mean Blood Pressure Mean [Right Arm] Blood Pressure Position Pulse Oximetry 97 Oxygen Delivery Method Room Air Sepsis Recent Fever Within 48 Hours Sepsis New/Unexplained Change in Mental Status Sepsis Action Taken by Nursing VITAL SIGNS - Vital signs and nursing notes were reviewed. GENERAL - No acute distress. Communicates well with provider and answers questions appropriately. SKIN - Without rashes. HEAD - NC/AT. EYES - PERRL with EOMI bilaterally. Sclera anicteric. Palpebral conjunctiva pink and moist with no injection noted. EARS - No deformities of external structures noted on gross examination bilaterally. NOSE - Midline and without cyanosis. No epistaxis or purulent drainage noted. Septum midline without deviation or septal hematoma noted. MOUTH/OROPHARYNX - Without perioral cyanosis. Buccal mucosa pink and moist NECK - Neck with FROM. Supple to palpation. LUNGS - Chest wall symmetric without accessory muscle use, intercostals retractions, or central cyanosis. Positive wheezing CARDIAC - RRR with S1/S2. No murmur, rubs, or gallops appreciated. ABDOMEN - Abdominal contour soft without pulsations or visible masses. BS normoactive all four quadrants. No tenderness, palpable masses, hepatosplenomegaly, or ascites noted. EXTREMITIES - No clubbing or peripheral cyanosis.. +5/5 strength noted in UE/LE bilaterally. Extremity edema, calves are nontender NEUROLOGIC - Cranial nerves II through XII grossly intact. PSYCH - A&Ox3 and cooperates fully with examiner. Pt is very pleasant and interacts well with examiner. Course Reevaluation(s) Reevaluation #1: Patient was resting in no distress he was started on a DuoNeb, given aspirin, his first troponin is 0, his EKG is unchanged from 2018. Patient may be having an exacerbation of COPD versus CHF with chest tightness. The case was discussed with the [facility] hospitalist for admission due to chest tightness and dyspnea. He also received a dose of Bumex for which he typically takes in the morning Time: 05:09 Administered Medications Discontinued Medications Albuterol (Albut/Ipratrop 3mg/0.5mg Neb 3 Ml Vial) 3 ml NEB NOW STA; Protocol Stop: 08/10/21 04:10 Last Admin: 08/10/21 04:24 Dose: 3 ml Documented by: [id number] Medical Decision Making Medical Records Attestation: I reviewed the patient's medical records. Home Medications Current Medication List: was personally reviewed by me Laboratory Data Attestation: I reviewed the patient's lab results. Result diagrams: 08/10/21 04:16 08/10/21 04:16 Lab Results 08/10/21 08/10/21 08/10/21 Range/Units 04:16 04:16 04:16 WBC 8.83 (4.8-10.8) K/uL RBC 4.65 L (4.7-6.1) M/uL Hgb 14.2 (14.0-18.0) g/dL Hct 41.3 L (42-52) % MCV 88.8 (80-100) fL MCH 30.5 (25-34) pg MCHC 34.4 (32-36) g/dL RDW Std Deviation 46.3 (36.4-46.3) fL RDW Coeff of Saige 14.2 (11.5-14.5) % Plt Count 287 (130-400) K/uL MPV 9.2 (7.4-10.4) fL Immature Gran % (Auto) 0.2 % Neut % (Auto) 67.0 % Lymph % (Auto) 20.3 % [place] % (Auto) 9.6 % Eos % (Auto) 2.2 % Baso % (Auto) 0.7 % Neut # (Auto) 5.92 (1.4-6.5) K/uL Lymph # (Auto) 1.79 (1.2-3.4) K/uL [place] # (Auto) 0.85 H (0.11-0.59) K/uL Eos # (Auto) 0.19 (0-0.5) K/uL Baso # (Auto) 0.06 (0-0.2) K/uL Immature Gran # (Auto) 0.02 (0.00-0.02) K/uL PT 11.1 (9.0-12.0) Seconds INR 1.0 (0.9-1.1) APTT 23.4 (21.0-31.0) Seconds PTT Ratio 0.9 Sodium 136 (136-145) mmol/L Potassium 4.3 (3.5-5.1) mmol/L Chloride 102 (98-107) mmol/L Carbon Dioxide 25 (21-32) mmol/L Anion Gap 9 (3-11) BUN 25 H (6-23) mg/dl Creatinine 1.14 (0.6-1.4) mg/dl Est Cr Clr Drug Dosing 82.8 ml/min Est GFR ( Amer) 76.2 ml/min Est GFR (Non-Af Amer) 65.7 ml/min BUN/Creatinine Ratio 21.9 H (10-20) Glucose 137 H (70-99(Fasting)) mg/dl Calcium 9.9 (8.5-10.1) mg/dl Magnesium 1.7 (1.7-2.4) mg/dl Total Bilirubin 0.7 (0.2-1.0) mg/dl AST 15 (13-39) U/L ALT 23 (7-52) U/L Alkaline Phosphatase 63 (34-104) U/L Troponin I High Sens 7.1 (0-20) pg/ml Total Protein 6.8 (6.0-8.3) gm/dl Albumin 4.1 (3.4-5.0) gm/dl Globulin 2.7 (2.5-4.0) gm/dl Albumin/Globulin Ratio 1.5 (0.9-2) Imaging Data Attestation: I personally reviewed and interpreted this imaging study as follows: ECG Data Attestation: I personally reviewed and interpreted this ECG as follows: Additional Comments: EKG interpreted by me sinus rhythm with a first-degree AV block there is low voltage left posterior hemiblock there is nonspecific ST-T changes in the precordium no significant reciprocal changes there is no obvious ST segment elevation the rate is 66, this EKG was compared to an EKG in the system of December 23, 2017 and is essentially unchanged therefore I do not think that this is an acute STEMI MDM Narrative Medical decision making differential diagnosis includes COPD, emphysema, CHF, upper respiratory tract infection, acute coronary syndrome. Plan is to check cardiac eval, chest x-ray, EKG Impression & Plan Acute dyspnea, Chest tightness Discharge Plan Visit Data Chief Complaint: Respiratory Problems Stated Complaint: HARD TIME BREATHING,PAIN ED Provider: Javier Saab Discharge Problem: Acute dyspnea, Chest tightness Patient Disposition: Being Evaluated by Hospitalist Forms Stand Alone Forms: My [facility] Prescriptions Prescriptions: No Action lisinopril 20 mg tablet 20 mg PO QAM RF: 0 aspirin 81 mg Tablet,Chewable 81 mg PO QAM RF: 0 bumetanide 1 mg tablet 0.5 mg PO QAM RF: 0 Novolog Flexpen U-100 Insulin 100 unit/mL insulin pen 1 dose subcut ACHS RF: 0 Lantus Solostar U-100 Insulin 100 unit/mL (3 mL) insulin pen 40 units subcut AMPM RF: 0 metformin 1,000 mg Tablet 1,500 mg PO QAM RF: 0 buspirone 5 mg tablet 5 mg PO BID RF: 0 ibuprofen 200 mg Tablet 800 mg PO BID PRN (Reason: Pain) RF: 0 Probiotic 3 billion cell Capsule 3,000 mmu cells PO QAM RF: 0 propafenone 425 mg Capsule,Extended Release 12 Hr 425 mg PO Q12H RF: 0 cyclobenzaprine 10 mg tablet 10 mg PO Q8H PRN (Reason: muscle spasm) Qty: 21 RF: 0 oxycodone 5 mg tablet 5 - 10 mg PO Q6H Qty: 15 RF: 0 Referrals Referrals: PCP,NO [Primary Care Provider] -
[2021-08-10 04:34] LABS: Hematocrit (blood only) 41.3 % (42-52); Hemoglobin 14.2 g/dL (14.0-18.0); Mean Corpuscular Hemoglobin 30.5 pg (25-34); Mean Corpuscular Hgb Conc 34.4 g/dL (32-36); Mean Corpuscular Volume 88.8 fL (80-100); Mean Platelet Volume 9.2 fL (7.4-10.4); Platelet Count 287 K/uL (130-400); RDW Coefficient of Variation 14.2 % (11.5-14.5); RDW Standard Deviation 46.3 fL (36.4-46.3); Red Blood Count 4.65 M/uL (4.7-6.1); White Blood Count 8.83 K/uL (4.8-10.8)
[2021-08-10 04:43] LABS: Partial Thromboplastin Ratio 0.9; Partial Thromboplastin Time 23.4 Seconds (21.0-31.0); Prothrombin Time 11.1 Seconds (9.0-12.0)
[2021-08-10 04:53] LABS: Basophils # (auto) 0.06 K/uL (0-0.2); Basophils % (auto) 0.7 %; Eosinophils # (auto) 0.19 K/uL (0-0.5); Eosinophils % (auto) 2.2 %; Immature Granulocytes # (auto) 0.02 K/uL (0.00-0.02); Immature Granulocytes % (auto) 0.2 %; Lymphocytes # (auto) 1.79 K/uL (1.2-3.4); Lymphocytes % (auto) 20.3 %; Monocytes # (auto) 0.85 K/uL (0.11-0.59); Monocytes % (auto) 9.6 %; Neutrophils # (auto) 5.92 K/uL (1.4-6.5)
[2021-08-10 04:56] LABS: Troponin I High Sensitivity 7.1 pg/ml (0-20)
[2021-08-10 04:59] LABS: Albumin Globulin Ratio 1.5 (0.9-2); Albumin Level 4.1 gm/dl (3.4-5.0); BUN Creatinine Ratio 21.9 (10-20); Bilirubin,Total 0.7 mg/dl (0.2-1.0); Calcium 9.9 mg/dl (8.5-10.1); Creatinine Clr Calc Pharmacy 82.8 ml/min; Est GFR (African American) 76.2 ml/min; Est GFR (Non-African American) 65.7 ml/min; Globulin 2.7 gm/dl (2.5-4.0); Magnesium 1.7 mg/dl (1.7-2.4); Potassium 4.3 mmol/L (3.5-5.1); Total Protein 6.8 gm/dl (6.0-8.3)
[2021-08-10] MEDS ORDERED: ASPIRIN CHEW 324 MG PO STA (05:00)
[2021-08-10] MEDS ORDERED: BUMETANIDE 0.5 MG in SYRINGE 0 ML IV ONE (05:03)
--- NOTE | 2021-08-10 06:51 | Electrocardiogram Report ---
Test Reason : Blood Pressure : / mmHG Vent. 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
[2021-08-10] MEDS ORDERED: LEVALBUTEROL HCL 1.25 MG/3 ML NEB NEB PRN (07:47)
[2021-08-10] MEDS ORDERED: POLYETHYLENE (MIRALAX) 17 GM PACK PO PRN (07:47)
[2021-08-10] MEDS ORDERED: ONDANSETRON INJ 2 MG/ML 2 ML VIAL IV PRN (07:47)
[2021-08-10] MEDS ORDERED: NITROGLYCERIN SL 0.4 MG/TAB TAB SL PRN (07:47)
[2021-08-10] MEDS ORDERED: ACETAMINOPHEN 325 MG TAB PO PRN (07:47)
[2021-08-10 08:21] LABS: Basophils # (auto) 0.03 K/uL (0-0.2); Basophils % (auto) 0.4 %; Eosinophils # (auto) 0.17 K/uL (0-0.5); Eosinophils % (auto) 2.3 %; Hematocrit (blood only) 40.6 % (42-52); Immature Granulocytes # (auto) 0.03 K/uL (0.00-0.02); Immature Granulocytes % (auto) 0.4 %; Lymphocytes # (auto) 1.33 K/uL (1.2-3.4); Lymphocytes % (auto) 18.3 %; Mean Corpuscular Hemoglobin 30.8 pg (25-34); Mean Corpuscular Hgb Conc 34.5 g/dL (32-36); Mean Corpuscular Volume 89.2 fL (80-100); Mean Platelet Volume 9.2 fL (7.4-10.4); Monocytes # (auto) 0.71 K/uL (0.11-0.59); Monocytes % (auto) 9.8 %; Neutrophils % (auto) 68.8 %; Platelet Count 260 K/uL (130-400); RDW Coefficient of Variation 14.2 % (11.5-14.5); RDW Standard Deviation 46.3 fL (36.4-46.3); Red Blood Count 4.55 M/uL (4.7-6.1); White Blood Count 7.27 K/uL (4.8-10.8)
[2021-08-10 08:48] LABS: BUN Creatinine Ratio 20.5 (10-20); Calcium 9.7 mg/dl (8.5-10.1); Creatinine Clr Calc Pharmacy 84.3 ml/min; Est GFR (African American) 77.8 ml/min; Est GFR (Non-African American) 67.1 ml/min; Magnesium 1.7 mg/dl (1.7-2.4); Potassium 4.1 mmol/L (3.5-5.1)
[2021-08-10 08:53] LABS: Troponin I High Sensitivity 6.1 pg/ml (0-20)
--- NOTE | 2021-08-10 08:59 | XRay Report ---
XR chest 1V portable CLINICAL HISTORY: Dyspnea TECHNIQUE: Single frontal radiograph of the chest was obtained. Comparison: Comparison is made to chest radiograph 05/19/2016 FINDINGS: Exam is limited by underpenetration. The cardiomediastinal silhouette is stable. Lungs are underinfla riya but clear. No evidence of pleural effusion or pneumothorax. IMPRESSION: No acute abnormalities and in particular no evidence of airspace opacities. ACT 112: Negative or not required by law. Electronically signed by: Pipe Hart M.D. 08/10/2021 8:58 AM
[2021-08-10] MEDS: INSULIN ASPART PER UNIT SC SCH ×4 (09:53→21:05)
[2021-08-10] MEDS: INSULIN GLARGINE SOLOSTAR 100 UNITS/ML 3 ML PEN SQ SCH ×2 (09:54→21:06)
[2021-08-10] MEDS: FLUTICASONE/VILANTEROL 100/25MCG 14 PUFFS/INHALER INH SCH (09:54)
[2021-08-10] MEDS: busPIRone 5 MG TAB PO SCH ×2 (09:55→20:50)
[2021-08-10] MEDS: ASPIRIN 81 MG ECTAB PO SCH (09:55)
[2021-08-10] MEDS: lisinopril 20 MG TAB PO SCH (09:55)
[2021-08-10 09:57] LABS: Estimated Average Glucose 160 mg/dl; Hemoglobin A1C 7.2 % (4.5-5.6)
--- NOTE | 2021-08-10 10:08 | History and Physical Report ---
DATE OF ADMISSION: 08/10/2021. CHIEF COMPLAINT: Shortness of breath. HISTORY OF PRESENT ILLNESS: This is a 66-year-old male with past medical history significant for type 2 diabetes, diabetic peripheral neuropathy, hyperlipidemia, obstructive sleep apnea, on CPAP, mild persistent asthma without complication, history of paroxysmal supraventricular tachycardia, history of chronic heart failure with preserved ejection fraction, history of hypertension, morbid obesity, generalized osteoarthritis, generalized anxiety disorder, history of COVID-19 in March of 2021, presents with shortness of breath. The patient was camping, at night he was feeling initially some chest heaviness and shortness of breath that was not getting better. When he decided to sleep, he put on CPAP machine, it got worse. Around 2:00 a.m., he called his and came here. He was given neb treatment and a dose of IV Bumex. Currently, resting comfortably and hemodynamically stable, saturating okay on room air. Denies any chest pain currently. He has occasional cough. Denies any fever or chills. No headache, no dizziness, no blurred visions, no earache, no runny nose, no sore throat. Appetite is okay. No difficulty swallowing. No nausea, no abdominal pain, normal bowel and bladder movements. He says lower extremity edema is worsening. Denies any excessive salt intake. He takes Lasix 20 mg daily. He says he has a history of ablation for his paroxysmal supraventricular tachycardia done here in [facility] and later he is currently following with [facility]. He states he takes propafenone for his PSVT. Initially, he thought it was what was causing his shortness of breath. ALLERGIES: ATORVASTATIN. PAST MEDICAL HISTORY: As mentioned above. PAST SURGICAL HISTORY: Anal fissure repair x2, left knee arthroplasty, right knee arthroplasty, colonoscopy, right cubital fossa release, cardiac ablation, lumbar laminectomy, tonsillectomy, adenoidectomy, left shoulder arthroscopy, sinus surgery, superficial abscess incision and drainage. MEDICATIONS: The patient is on metformin 1500 mg p.o. daily, buspirone 5 mg p.o. b.i.d., Advair Diskus 100/50 inhalation b.i.d., Lasix 20 mg p.o. daily, Ventolin HFA 2 puffs inhalation q. 4 hours p.r.n., Lantus 40 units b.i.d., lisinopril 20 mg p.o. daily, NovoLog FlexPen sliding scale, aspirin 81 mg p.o. daily, propafenone ER 425 mg p.o. b.i.d., probiotic 1 capsule p.o. daily, albuterol nebulization p.r.n. FAMILY HISTORY: Significant for mother had mycosis fungoides, brother has diabetes. Son has obesity and back surgery. SOCIAL HISTORY: , no smoking, no alcohol, no drug use. REVIEW OF SYSTEMS: As per HPI. Rest of review of systems is negative. PHYSICAL EXAMINATION: GENERAL: The patient is morbidly obese, currently not in acute distress. VITAL SIGNS: Temperature 36.7, pulse 65, respiratory rate 26, blood pressure 148/75, oxygen 98% on room air. HEENT: Pupils equal, round and reactive to light. Oral mucosa moist. LUNGS: No JVD, no neck masses. CARDIOVASCULAR: S1 and S2 heard. Regular rate and rhythm. No murmur, no gallop. RESPIRATORY SYSTEM: Normal AP diameter. No accessory muscle use. No wheezing, no crackles. ABDOMEN: Soft. Bowel sounds are present, nontender, no distention. CENTRAL NERVOUS SYSTEM: Cranial nerves II-XII grossly intact, nonfocal. EXTREMITIES: Bilateral lower extremity, +2 edema present, no erythema seen. LABORATORY DATA: WBC 8.8, hemoglobin 14.2, hematocrit 41.3, platelets 287. PT 11.1, INR 1, APTT 23.4. Sodium 136, potassium 4.3, chloride 102, bicarb 25, BUN 25, creatinine is 1.1, serum glucose 137, calcium 9.9, magnesium 1.7, total bilirubin 0.7, AST 15, ALT 23, alkaline phosphatase 63, troponin 1 high sensitivity 7.1, BNP 43. SARS-CoV-2 rapid test negative. IMAGING DATA: Chest x-ray, bilateral pulmonary congestion present. EKG: Sinus rhythm with first-degree AV block at a rate of 66, left posterior fascicular block, anteroseptal infarct was same as in EKG in December 2017. ASSESSMENT AND PLAN: A 66-year-old male who presents with shortness of breath. 1. Shortness of breath, cough, some mild chest discomfort: EKG, no acute findings. Troponin negative. Chest x-ray, pulmonary congestion. He says lower extremity edema is worsening. Most likely symptoms from the [id number] heart failure with preserved ejection fraction. Received IV Bumex 0.5 mg in the ER. The patient is on 20 mg of Lasix at home. Will place him on IV Lasix 40 b.i.d. Follow serial enzymes, echocardiogram. Monitor in the tele. Consult cardiology for further recommendations. 2. History of obstructive sleep apnea: On CPAP at bedtime. 3. History of mild persistent asthma: Continue his home inhaler. 4. History of diabetes: Continue his home Lantus. Placed on insulin sliding scale. Hold metformin. Follow blood sugars. Follow HbA1c level. 5. History of hyperlipidemia: He is allergic to statins. 6. History of paroxysmal supraventricular tachycardia: Status post ablation. Currently on propafenone. Follows with [place] cardiology.Also sees [facility] cardiology. 7. Hypertension. Continue his lisinopril. On diuretics. Monitor the blood pressure. 8. Generalized anxiety disorder: On buspirone. 9. Morbid obesity: Needs counseling. 10. Deep venous thrombosis prophylaxis: Placed on Lovenox. DISPOSITION: Closely monitor in the tele floor. Level 1 full code. Expect to discharge home and follow with family doctor. PT/OT prior to discharge. Social service to help with discharge planning. Job ID: [id number] [facility]
[2021-08-10] MEDS: ENOXAPARIN INJ 40 MG/0.4 ML SYR SQ SCH ×2 (10:17→20:50)
[2021-08-10] MEDS: FUROSEMIDE 40 MG/4 ML VIAL IV SCH ×2 (10:18→17:35)
--- NOTE | 2021-08-10 13:11 | Cardiology Consultation ---
Date of Consultation August 10, 2021 Assessment & Plan (1) Acute dyspnea: (2) Chest tightness: (3) Acute right-sided congestive heart failure: (4) Symptomatic PVCs: (5) MARY on CPAP: Recommend CTA of the chest for further evaluation of right-sided chest discomfort and dyspnea. His symptoms have improved with diuretic therapy. There is no edema on exam currently. Clinical scenario suggests acute heart failure with primarily right-sided signs/symptoms. Continue IV furosemide at this time. Consider addition of Aldactone pending review of a.m. labs. Statin recommended due to history of diabetes. If CTA of the chest is unremarkable, recommend exercise stress echo for further risk stratification. N.p.o. except medications after midnight History of Present Illness Reason for Consultation: CHF Requesting Physician: Dr. Edward Attending Physician: Bryce Gonsalves MD History of Present Illness 58-year-old patient presented to the emergency department with shortness of breath. Symptoms began approximately 24 hours prior to presentation. Noted intermittent dyspnea at rest. Typically attributes the symptoms to premature ventricular complexes. Reports lower extremity edema on the days preceding admission. No orthopnea or PND. Chronically treated by mine safety manager at [facility] with propafenone for suppression of PVCs. Carries a history of obstructive sleep apnea on CPAP nightly. In the ER, patient was treated with IV Lasix with improvement of dyspnea. Oxygen saturation normal on room air. Denies personal history of coronary disease, congestive heart failure, rheumatic fever as a child, peripheral vascular disease, or thrombosis. Treated with 20 mg furosemide in the outpatient setting. Denies any noncompliance. Denies any excessive sodium or fluid intake prior to onset of symptoms. Currently resting comfortably. Shortness of breath has significantly improved with diuretic therapy. Edema has resolved. Telemetry reveals sinus rhythm with a right bundle branch block. Cardiac enzymes are undetectable. ECG and chest x-ray unremarkable. Preliminary review of bedside 2D transthoracic echocardiogram demonstrates an enlarged right ventricle with hypokinesis. There is flattening of the interventricular septum suggesting right ventricular pressure overload. Allergies Allergy/AdvReac Type Severity Reaction Status Date / Time No Known Allergies Allergy Verified 10/08/19 11:06 Home Medications Medication Instructions Recorded Confirmed Type aspirin 81 mg chewable tablet 81 mg PO QAM 01/01/18 11/10/18 History insulin aspart U-100 100 unit/mL 1 dose SUBCUT ACHS 01/01/18 11/10/18 History (3 mL) subcutaneous pen (Novolog Flexpen U-100 Insulin aspart) insulin glargine 100 unit/mL (3 40 units SUBCUT AMPM 01/01/18 11/10/18 History mL) subcutaneous pen (Lantus Solostar U-100 Insulin) lisinopril 20 mg tablet 20 mg PO QAM 01/01/18 11/10/18 History buspirone 5 mg tablet 5 mg PO BID 02/15/18 11/10/18 History metformin 1,000 mg tablet 1,500 mg PO QAM 02/15/18 11/10/18 History propafenone 425 mg 425 mg PO Q12H 11/09/18 11/10/18 History capsule,extended release 12 hr fluticasone 100 mcg-salmeterol 50 1 inh INHALATION BID 08/10/21 08/10/21 History mcg/dose blistr powdr for inhalation furosemide 20 mg tablet 20 mg PO DAILY 08/10/21 08/10/21 History Patient History Medical History (Updated 08/10/21 @ 13:08 by Braeden Ricks DO) Anxiety Back pain Cellulitis of left leg Hepatic steatosis HLD (hyperlipidemia) Hypertension Kidney stones Morbid obesity MARY (obstructive sleep apnea) CPAP Osteoarthritis Peripheral edema PVC (premature ventricular contraction) T2DM (type 2 diabetes mellitus) Surgical History History of arthroscopy of left knee x2 History of arthroscopy of left shoulder History of cardiac cath 2006 @ [facility], no stents History of cardiac radiofrequency ablation 2017 @ [facility]--follows with [facility] History of colonoscopy History of lumbar laminectomy x2 History of tonsillectomy and adenoidectomy History of tooth extraction S/P carpal tunnel release right hand Family History Mother Mycosis fungoides Father CUENCA (nonalcoholic steatohepatitis) Other Cancer Gallbladder disease Hypertension Social History Smoking Status: Never smoker Second Hand Exposure: No; Do You Dip or Chew Tobacco: No; Tobacco Cessation Education Requested by Patient: No Hx Alcohol Use: No Hx Substance Use: No Preferred Language: Chilean Communication Ability: Effective Visual Impairment: No Limitations Hearing Ability: Normal Inspector Filter Tip Required: No Beliefs That Will Affect Care: None marital status: Current Living Situation: Spouse Current Living Situation Comment: At home Other Information That Helps Us Care for You: No Feels Safe at Home: Yes Safety Concerns: Feels Safe At This Time Assistive Devices: Cane and Walker Review of Systems Review of Systems: All systems reviewed & are unremarkable except as noted in Subjective Physical Exam Constitutional: well nourished and + obese; no acute distress and not ill appearing Respiratory: normal respiratory effort; no respiratory distress, no labored breathing and no retractions Cardiovascular: Rate/Rhythm: regular rate and regular rhythm Heart Sounds: normal S1 and normal S2; no murmur Vessels: radial pulses present; no JVD and no carotid bruit Extremities: no edema Gastrointestinal (Abdomen): Inspection/Auscultation: abdomen normal to inspection and normal bowel sounds; abdomen not distended Percussion/Palpation: abdomen soft; abdomen nontender, no guarding and abdomen not rigid Neurologic: CN's II-XI intact bilaterally and moves all extremities; no focal motor deficits Motor/Sensory: no tremor Psychiatric: A+Ox3, euthymic affect Results & Data ([facility]) Vital Signs (Past 12 Hours) Vital Signs Temp Pulse Pulse Resp BP BP Pulse Ox 08/10/21 12:00 36.8 C 80 17 121/76 97 08/10/21 11:00 36.5 C 83 23 147/76 H 97 08/10/21 10:00 74 21 126/70 98 08/10/21 09:30 38.2 C H 08/10/21 09:22 96 08/10/21 09:21 131/70 08/10/21 07:30 71 17 190/121 H 98 08/10/21 07:00 74 22 176/100 H 98 08/10/21 06:30 71 8 L 153/86 H 98 08/10/21 05:36 65 26 H 148/75 H 98 08/10/21 04:24 67 16 97 08/10/21 03:40 66 98 08/10/21 03:39 36.7 C 68 20 142/89 H 98 08/10/21 03:36 65 26 H 142/83 H 98 Pulse Ox 08/10/21 12:00 97 08/10/21 11:00 08/10/21 10:00 97 08/10/21 09:30 08/10/21 09:22 08/10/21 09:21 08/10/21 07:30 08/10/21 07:00 08/10/21 06:30 08/10/21 05:36 08/10/21 04:24 08/10/21 03:40 08/10/21 03:39 08/10/21 03:36
[2021-08-10] MEDS ORDERED: OPTIRAY 320 125ml IV ONE (13:12)
--- NOTE | 2021-08-10 14:10 | CT Scan Report ---
CT angio chest PE protocol CLINICAL HISTORY: chest pain, SOB, r/o PE TECHNIQUE: Multidetector row helical CT of the chest was performed with angiographic protocol. Judge l and sagittal reformations were obtained. Coronal and sagittal MIPS were obtained from the axial tabitha a set and were submitted for review. Automated dose lowering techniques and/or adjustment according to patient size were utilized for this exam. CT DOSE: 1153.35 mGy.cm Comparison: Comparison is made to CT chest 02/13/2016 FINDINGS: Lungs and pleura: Normal. Heart and pericardium: Heart size is normal. No pericardial effusion. Vessels: No evidence of pulmonary embolism. Moderate atherosclerotic disease is seen. Mediastinum and marilyn: Unremarkable. Chest wall and lower neck: Unremarkable. Abdomen: Unremarkable. Bones: Degenerative changes in the thoracic spine. IMPRESSION: No evidence of pulmonary embolism. ACT 112: Negative or not required by law. Electronically signed by: Pipe Hart M.D. 08/10/2021 2:07 PM
[2021-08-10 19:30] LABS: Appearance Urine Clear (Clear); Bilirubin Urine Negative (Negative); Blood Urine Negative (Negative); Color Urine Yellow; Glucose Urine UA Negative (Negative); Ketones Urine Negative (Negative); Leukocyte Esterase Urine Negative (Negative); Nitrite Urine Negative (Negative); Protein Urine Negative (Negative); Specific Gravity Urine 1.013 (1.000-1.030); Urobilinogen Urine Negative (Negative)
[2021-08-10] MEDS: PROPAFENONE 425 MG PO SCH (20:52)
[2021-08-11 06:01] LABS: Basophils # (auto) 0.05 K/uL (0-0.2); Basophils % (auto) 0.6 %; Eosinophils % (auto) 2.6 %; Hematocrit (blood only) 43.2 % (42-52); Immature Granulocytes # (auto) 0.02 K/uL (0.00-0.02); Immature Granulocytes % (auto) 0.3 %; Lymphocytes # (auto) 1.68 K/uL (1.2-3.4); Lymphocytes % (auto) 21.4 %; Mean Corpuscular Hemoglobin 30.8 pg (25-34); Mean Corpuscular Volume 88.7 fL (80-100); Mean Platelet Volume 9.2 fL (7.4-10.4); Monocytes # (auto) 0.96 K/uL (0.11-0.59); Monocytes % (auto) 12.2 %; Neutrophils # (auto) 4.93 K/uL (1.4-6.5); Neutrophils % (auto) 62.9 %; Platelet Count 305 K/uL (130-400); RDW Coefficient of Variation 14.1 % (11.5-14.5); Red Blood Count 4.87 M/uL (4.7-6.1); White Blood Count 7.84 K/uL (4.8-10.8)
[2021-08-11 06:05] LABS: Mean Corpuscular Hgb Conc 34.7 g/dL (32-36)
[2021-08-11 06:27] LABS: BUN Creatinine Ratio 21.3 (10-20); Calcium 9.5 mg/dl (8.5-10.1); Creatinine Clr Calc Pharmacy 62.9 ml/min; Est GFR (African American) 54.7 ml/min; Est GFR (Non-African American) 47.2 ml/min
[2021-08-11] MEDS: INSULIN GLARGINE SOLOSTAR 100 UNITS/ML 3 ML PEN SQ SCH (08:03)
[2021-08-11] MEDS: INSULIN ASPART PER UNIT SC SCH ×3 (08:05→16:48)
[2021-08-11] MEDS: ASPIRIN 81 MG ECTAB PO SCH (08:34)
[2021-08-11] MEDS: FUROSEMIDE 40 MG/4 ML VIAL IV SCH (08:35)
[2021-08-11] MEDS: busPIRone 5 MG TAB PO SCH (08:35)
[2021-08-11] MEDS: ENOXAPARIN INJ 40 MG/0.4 ML SYR SQ SCH (08:35)
[2021-08-11] MEDS: lisinopril 20 MG TAB PO SCH (08:36)
[2021-08-11] MEDS: PROPAFENONE 425 MG PO SCH (08:36)
[2021-08-11] MEDS: FLUTICASONE/VILANTEROL 100/25MCG 14 PUFFS/INHALER INH SCH (08:45)
--- NOTE | 2021-08-11 09:19 | Hospitalist Progress Note ---
Date of Service August 11, 2021 Assessment & Plan (1) Acute dyspnea: (2) Acute right-sided congestive heart failure: (3) Symptomatic PVCs: (4) MARY on CPAP: Plan: A 66-year-old male who presents with shortness of breath. 1. Shortness of breath, cough, some mild chest discomfort: EKG, no acute findings. Troponin negative. Chest x-ray, pulmonary congestion. He says lower extremity edema is worsening. Most likely symptoms from the [id number] heart failure with preserved ejection fraction. Received IV Bumex 0.5 mg in the ER. The patient is on 20 mg of Lasix at home. On admission started on IV Lasix 40 b.i.d. Troponin x4 Echocardiogram - RV is not well visualized, however appears mildly dilated and hypokinetic in the limited views. Flattened septum is consistent with RV pressure overload. LV is grossly normal size. LV ejection fraction is grossly normal. EF 55 to 60%. Poorly visualized valvular anatomy without significant stenosis or regurg. Monitor in the tele. Cardiology consulted - patient underwent stress echo today, August 11, equivocal due to poor acoustic windows. Ongoing right ventricular enlargement noted. DC recommendations Hold furosemide tomorrow, 08/12/21. Then resume at increased dose of furosemide 40 mg daily. Obtain BMP am of 08/13/21 at . Should perform lab first thing in am to ensure results available RICHARD. Given prolonged QRS duration, discussed reducing his propafenone dose from 425 mg daily to 325 mg daily. Pt states he has already been on 225 and 325 with worsening PVCs, and 425 mg dose recommended by his electrophysiology provider and pt prefers to maintain. Recommend rosuvastatin 10 mg daily. Lab visit , 08/13/21, 8:30 am [facility]. Lab order placed. Follow up with Dr Ricks at [facility] on 09/02/21, 10:30 am , 10:15 arrival time , [facility]. -At time of follow up, pt to be reassessed with regards to need for additional non invasive testing such as nuclear stress imaging, cardiac catheterization, or ongoing observation. 2. History of obstructive sleep apnea: On CPAP at bedtime. 3. History of mild persistent asthma: Continue his home inhaler. 4. History of diabetes: Continue his home Lantus. Placed on insulin sliding scale. Hold metformin. Follow blood sugars. Current HbA1c level 7.2% 5. History of hyperlipidemia: He is allergic to statins. 6. History of paroxysmal supraventricular tachycardia: Status post ablation. Currently on propafenone. Follows with [facility].Also sees [facility] cardiology. 7. Hypertension. Continue his lisinopril. On diuretics. Monitor the blood pressure. 8. Generalized anxiety disorder: On buspirone. 9. Morbid obesity: Needs counseling. DVT prophylaxis: Placed on Lovenox. DISPOSITION:plan to DC home today Code: full code. Admission and Anticipated Discharge Date Admission Date: August 10, 2021 Subjective Patient seen in follow-up of shortness of breath CTPE negative for PE Patient underwent stress echo today with cardiology Cr increased today at 1.5 He is sitting up in bed, in no acute distress, feeling well Denies any shortness of breath or lower extremity edema Denies any chest pain, palpitations, headache, lightheadedness, abd. Pain nausea or vomiting Review of Systems Review of Systems: All systems reviewed & are unremarkable except as noted in Subjective Physical Exam Physical Exam: GENERAL: The patient is morbidly obese, currently not in acute distress. HEENT: NC/AT, EOMI, Pupils equal, round and reactive to light. Oral mucosa moist. CARDIOVASCULAR: S1 and S2 heard. Regular rate and rhythm. No murmur, no gallop. RESPIRATORY: Normal AP diameter. No accessory muscle use. CTAB, No wheezing, no crackles. ABDOMEN: Soft. Bowel sounds are present, nontender, no distention. NEURO:Awake and alert, answers appropriately, no facial asymmetry, moves extremities EXTREMITIES: + b/l ankle edema present (much improved from previous exam), no erythema seen. Results & Data Results & Data ([facility]) Vital Signs (Past 12 Hours) Vital Signs Temp Pulse Resp BP Pulse Ox 08/11/21 07:00 43 L 17 08/11/21 06:18 74 08/11/21 06:00 71 19 08/11/21 05:00 73 19 08/11/21 04:00 72 18 08/11/21 03:50 73 18 127/75 91 08/11/21 01:41 82 20 177/112 H 97 08/11/21 01:40 85 21 177/112 H 98 08/11/21 01:00 89 20 08/11/21 00:00 89 08/10/21 23:00 36.8 C 89 14 96 08/10/21 22:00 90 16 Laboratory Results 08/11/21 08/11/21 08/11/21 Range/Units 07:07 05:51 05:51 WBC 7.84 (4.8-10.8) K/uL RBC 4.87 (4.7-6.1) M/uL Hgb 15.0 (14.0-18.0) g/dL Hct 43.2 (42-52) % MCV 88.7 (80-100) fL MCH 30.8 (25-34) pg MCHC 34.7 (32-36) g/dL RDW Std Deviation 46.0 (36.4-46.3) fL RDW Coeff of Saige 14.1 (11.5-14.5) % Plt Count 305 (130-400) K/uL MPV 9.2 (7.4-10.4) fL Immature Gran % (Auto) 0.3 % Neut % (Auto) 62.9 % Lymph % (Auto) 21.4 % Ber[place]hire % (Auto) 12.2 % Eos % (Auto) 2.6 % Baso % (Auto) 0.6 % Neut # (Auto) 4.93 (1.4-6.5) K/uL Lymph # (Auto) 1.68 (1.2-3.4) K/uL [place] # (Auto) 0.96 H (0.11-0.59) K/uL Eos # (Auto) 0.20 (0-0.5) K/uL Baso # (Auto) 0.05 (0-0.2) K/uL Immature Gran # (Auto) 0.02 (0.00-0.02) K/uL Sodium 136 (136-145) mmol/L Potassium 4.0 (3.5-5.1) mmol/L Chloride 100 (98-107) mmol/L Carbon Dioxide 26 (21-32) mmol/L Anion Gap 10 (3-11) BUN 32 H (6-23) mg/dl Creatinine 1.50 H D (0.6-1.4) mg/dl Est Cr Clr Drug Dosing 62.9 ml/min Est GFR ( Amer) 54.7 ml/min Est GFR (Non-Af Amer) 47.2 ml/min BUN/Creatinine Ratio 21.3 H (10-20) Glucose 154 H (70-99(Fasting)) mg/dl POC Glucose 167 H (70-99) mg/dl Estimat Average Glucose mg/dl Hemoglobin A1c (4.5-5.6) % Calcium 9.5 (8.5-10.1) mg/dl Troponin I High Sens (0-20) pg/ml Urine Color Urine Appearance (Clear) Urine pH (4.5-7.5) Ur Specific Olds (1.000-1.030) Urine Protein (Negative) Urine Glucose (UA) (Negative) Urine Ketones (Negative) Urine Blood (Negative) Urine Nitrite (Negative) Urine Bilirubin (Negative) Urine Urobilinogen (Negative) Ur Leukocyte Esterase (Negative) 08/10/21 08/10/21 08/10/21 Range/Units 21:02 20:53 19:27 WBC (4.8-10.8) K/uL RBC (4.7-6.1) M/uL Hgb (14.0-18.0) g/dL Hct (42-52) % MCV (80-100) fL MCH (25-34) pg MCHC (32-36) g/dL RDW Std Deviation (36.4-46.3) fL RDW Coeff of Saige (11.5-14.5) % Plt Count (130-400) K/uL MPV (7.4-10.4) fL Immature Gran % (Auto) % Neut % (Auto) % Lymph % (Auto) % [place] % (Auto) % Eos % (Auto) % Baso % (Auto) % Neut # (Auto) (1.4-6.5) K/uL Lymph # (Auto) (1.2-3.4) K/uL [place] # (Auto) (0.11-0.59) K/uL Eos # (Auto) (0-0.5) K/uL Baso # (Auto) (0-0.2) K/uL Immature Gran # (Auto) (0.00-0.02) K/uL Sodium (136-145) mmol/L Potassium (3.5-5.1) mmol/L Chloride (98-107) mmol/L Carbon Dioxide (21-32) mmol/L Anion Gap (3-11) BUN (6-23) mg/dl Creatinine (0.6-1.4) mg/dl Est Cr Clr Drug Dosing ml/min Est GFR ( Amer) ml/min Est GFR (Non-Af Amer) ml/min BUN/Creatinine Ratio (10-20) Glucose (70-99(Fasting)) mg/dl POC Glucose 182 H (70-99) mg/dl Estimat Average Glucose mg/dl Hemoglobin A1c (4.5-5.6) % Calcium (8.5-10.1) mg/dl Troponin I High Sens 6.4 (0-20) pg/ml Urine Color Yellow Urine Appearance Clear (Clear) Urine pH 5.0 (4.5-7.5) Ur Specific Olds 1.013 (1.000-1.030) Urine Protein Negative (Negative) Urine Glucose (UA) Negative (Negative) Urine Ketones Negative (Negative) Urine Blood Negative (Negative) Urine Nitrite Negative (Negative) Urine Bilirubin Negative (Negative) Urine Urobilinogen Negative (Negative) Ur Leukocyte Esterase Negative (Negative) 08/10/21 08/10/21 08/10/21 Range/Units 15:55 14:21 12:04 WBC (4.8-10.8) K/uL RBC (4.7-6.1) M/uL Hgb (14.0-18.0) g/dL Hct (42-52) % MCV (80-100) fL MCH (25-34) pg MCHC (32-36) g/dL RDW Std Deviation (36.4-46.3) fL RDW Coeff of Saige (11.5-14.5) % Plt Count (130-400) K/uL MPV (7.4-10.4) fL Immature Gran % (Auto) % Neut % (Auto) % Lymph % (Auto) % [place] % (Auto) % Eos % (Auto) % Baso % (Auto) % Neut # (Auto) (1.4-6.5) K/uL Lymph # (Auto) (1.2-3.4) K/uL [place] # (Auto) (0.11-0.59) K/uL Eos # (Auto) (0-0.5) K/uL Baso # (Auto) (0-0.2) K/uL Immature Gran # (Auto) (0.00-0.02) K/uL Sodium (136-145) mmol/L Potassium (3.5-5.1) mmol/L Chloride (98-107) mmol/L Carbon Dioxide (21-32) mmol/L Anion Gap (3-11) BUN (6-23) mg/dl Creatinine (0.6-1.4) mg/dl Est Cr Clr Drug Dosing ml/min Est GFR ( Amer) ml/min Est GFR (Non-Af Amer) ml/min BUN/Creatinine Ratio (10-20) Glucose (70-99(Fasting)) mg/dl POC Glucose 137 H 213 H (70-99) mg/dl Estimat Average Glucose mg/dl Hemoglobin A1c (4.5-5.6) % Calcium (8.5-10.1) mg/dl Troponin I High Sens 5.5 (0-20) pg/ml Urine Color Urine Appearance (Clear) Urine pH (4.5-7.5) Ur Specific Olds (1.000-1.030) Urine Protein (Negative) Urine Glucose (UA) (Negative) Urine Ketones (Negative) Urine Blood (Negative) Urine Nitrite (Negative) Urine Bilirubin (Negative) Urine Urobilinogen (Negative) Ur Leukocyte Esterase (Negative) 08/10/21 Range/Units 08:13 WBC (4.8-10.8) K/uL RBC (4.7-6.1) M/uL Hgb (14.0-18.0) g/dL Hct (42-52) % MCV (80-100) fL MCH (25-34) pg MCHC (32-36) g/dL RDW Std Deviation (36.4-46.3) fL RDW Coeff of Saige (11.5-14.5) % Plt Count (130-400) K/uL MPV (7.4-10.4) fL Immature Gran % (Auto) % Neut % (Auto) % Lymph % (Auto) % [place] % (Auto) % Eos % (Auto) % Baso % (Auto) % Neut # (Auto) (1.4-6.5) K/uL Lymph # (Auto) (1.2-3.4) K/uL [place] # (Auto) (0.11-0.59) K/uL Eos # (Auto) (0-0.5) K/uL Baso # (Auto) (0-0.2) K/uL Immature Gran # (Auto) (0.00-0.02) K/uL Sodium (136-145) mmol/L Potassium (3.5-5.1) mmol/L Chloride (98-107) mmol/L Carbon Dioxide (21-32) mmol/L Anion Gap (3-11) BUN (6-23) mg/dl Creatinine (0.6-1.4) mg/dl Est Cr Clr Drug Dosing ml/min Est GFR ( Amer) ml/min Est GFR (Non-Af Amer) ml/min BUN/Creatinine Ratio (10-20) Glucose (70-99(Fasting)) mg/dl POC Glucose (70-99) mg/dl Estimat Average Glucose 160 mg/dl Hemoglobin A1c 7.2 H (4.5-5.6) % Calcium (8.5-10.1) mg/dl Troponin I High Sens (0-20) pg/ml Urine Color Urine Appearance (Clear) Urine pH (4.5-7.5) Ur Specific Olds (1.000-1.030) Urine Protein (Negative) Urine Glucose (UA) (Negative) Urine Ketones (Negative) Urine Blood (Negative) Urine Nitrite (Negative) Urine Bilirubin (Negative) Urine Urobilinogen (Negative) Ur Leukocyte Esterase (Negative) Medications Administered Current Inpatient Medications Acetaminophen (Acetaminophen 325 Mg Tab) 650 mg PO Q4H PRN PRN Reason: Pain or Fever Stop: 09/09/21 07:46 Aspirin (Aspirin 81 Mg Ectab) 81 mg PO QAM [facility] Stop: 09/09/21 08:59 Last Admin: 08/11/21 08:34 Dose: 81 mg Documented by: Buspirone HCl (Buspirone 5 Mg Tab) 5 mg PO BID [facility] Stop: 09/09/21 08:59 Last Admin: 08/11/21 08:35 Dose: 5 mg Documented by: Enoxaparin Sodium (Enoxaparin Inj 40 Mg/0.4 Ml Syr) 40 mg SQ Q12 [facility] Stop: 09/09/21 08:59 Last Admin: 08/11/21 08:35 Dose: 40 mg Documented by: Fluticasone/Vilanterol (Fluticasone/Vilanterol 100/25mcg 14 Puffs/Inhaler) 1 puffs INH DAILY [facility] Stop: 09/09/21 08:59 Last Admin: 08/11/21 08:45 Dose: 1 puffs Documented by: Furosemide (Furosemide 40 Mg Tab) 40 mg PO QAM [facility] Stop: 09/11/21 08:59 Insulin Aspart (Insulin Aspart Per Unit) 0 units SC ACHS [facility] Stop: 09/09/21 07:46 Last Admin: 08/11/21 12:04 Dose: 1 units Documented by: Insulin Glargine (Insulin Glargine Solostar 100 Units/Ml 3 Ml Pen) 40 units SQ BID [facility] Stop: 09/09/21 08:29 Last Admin: 08/11/21 08:03 Dose: 40 units Documented by: Levalbuterol HCl (Levalbuterol Hcl 1.25 Mg/3 Ml Neb) 1.25 mg NEB Q4H PRN; Protocol PRN Reason: Shortness Of Breath Or Wheezing Stop: 09/09/21 07:46 Lisinopril (Lisinopril 20 Mg Tab) 20 mg PO QAM [facility] Stop: 09/09/21 08:59 Last Admin: 08/11/21 08:36 Dose: 20 mg Documented by: Nitroglycerin (Nitroglycerin Sl 0.4 Mg/Tab Tab) 0.4 mg SL UD PRN PRN Reason: Chest Pain Stop: 09/09/21 07:46 Propafenone Er 425mg ~ Non-Formulary Patient's Own Med 1 ea PO BID [facility] Stop: 09/09/21 20:59 Last Admin: 08/11/21 08:36 Dose: 425 mg Documented by: Ondansetron HCl (Ondansetron Inj 2 Mg/Ml 2 Ml Vial) 4 mg IV Q6H PRN PRN Reason: Nausea Stop: 09/09/21 07:46 Polyethylene Glycol (Polyethylene (Miralax) 17 Gm Pack) 17 gm PO DAILY PRN PRN Reason: Constipation Stop: 09/09/21 07:46 Rosuvastatin Calcium (Rosuvastatin Calcium 10 Mg Tab) 10 mg PO QAM [facility] Stop: 09/11/21 08:59
--- NOTE | 2021-08-11 09:41 | Cardiology Progress Note ---
Date of Service August 11, 2021 Assessment & Plan (1) Acute dyspnea: (2) Chest tightness: (3) Acute right-sided congestive heart failure: (4) Symptomatic PVCs: (5) MARY on CPAP: Plan: Discontinue IV furosemide. Creatinine trending upward today suggesting intravascular volume depletion. Titrate outpatient furosemide to 40 mg daily. Repeat basic metabolic panel in 1 week post discharge. Proceed with exercise stress echo this morning for further restratification. Further recommendations pending result. Recommend reduced dose of propafenone to 325mg BID due to right bundle branch block and first-degree AV block. Statin recommended due to history of diabetes. Documented intolerance to atorvastatin due to myalgia. Recommend rosuvastatin 10 mg daily. Outpatient cardiology follow-up in 2-4 weeks. Admission and Anticipated Discharge Date Admission Date: August 10, 2021 Subjective Patient seen examined the bedside. Feeling better from a respiratory perspective. Oxygen saturation 95% on room air. Fluid balance -3.4 L. Denies chest discomfort or shortness of breath today. Telemetry reveals sinus rhythm. Frequent PVCs recorded overnight including ventricular bigeminy. Review of Systems Review of Systems: All systems reviewed & are unremarkable except as noted in Subjective Physical Exam Constitutional: well nourished and + obese; no acute distress and not ill appearing Respiratory: normal respiratory effort; no respiratory distress, no labored breathing and no retractions Cardiovascular: Rate/Rhythm: regular rate and regular rhythm Heart Sounds: normal S1 and normal S2; no murmur Vessels: radial pulses present; no JVD and no carotid bruit Extremities: + edema (Trace ankle edema) Gastrointestinal (Abdomen): Inspection/Auscultation: abdomen normal to inspection and normal bowel sounds; abdomen not distended Percussion/Palpation: abdomen soft; abdomen nontender, no guarding and abdomen not rigid Neurologic: CN's II-XI intact bilaterally and moves all extremities; no focal motor deficits Motor/Sensory: no tremor Psychiatric: A+Ox3, euthymic affect Results & Data ([facility]) Vital Signs (Past 12 Hours) Vital Signs Temp Pulse Resp BP Pulse Ox 08/11/21 08:39 87 18 117/86 95 08/11/21 07:09 85 18 135/86 95 08/11/21 07:00 43 L 17 08/11/21 06:18 74 08/11/21 06:00 71 19 08/11/21 05:00 73 19 08/11/21 04:00 72 18 08/11/21 03:50 73 18 127/75 91 08/11/21 01:41 82 20 177/112 H 97 08/11/21 01:40 85 21 177/112 H 98 08/11/21 01:00 89 20 08/11/21 00:00 89 08/10/21 23:00 36.8 C 89 14 96 08/10/21 22:00 90 16
--- NOTE | 2021-08-11 14:35 | Communication Note ---
Date of Service: August 11, 2021 Patient reassessed in follow up in coverage of Dr Ricks. Pt feels well and is eager for discharge. Telemetry reveals sinus rhythm with right bundle branch block (QRS duration 114 ms per computer measurement, appears closer to 180 ms per my personal measurement) and first degree AV block (PA interval 218 ms).RBBB is a chronic finding, noted on out pt EKG in past, QRS duration 182 ms 07/09/20. Pt had brief run of ventricular bigeminy this am , with conversion to SR. His stress echocardiogram was equivocal due to poor acoustic windows. Ongoing right ventricular enlargement noted. Creatinine 1.5 today up from 1.12 yesterday. 3.6 liters of urine output noted yesterday in to today. Plan: Stable for discharge. Hold furosemide tomorrow, 08/12/21. Then resume at increased dose of furosemide 40 mg daily. Obtain BMP am of 08/13/21 at . Should perform lab first thing in am to ensure results available RICHARD. Given prolonged QRS duration, discussed reducing his propafenone dose from 425 mg daily to 325 mg daily. Pt states he has already been on 225 and 325 with worsening PVCs, and 425 mg dose recommended by his electrophysiology provider and pt prefers to maintain. Pts upcoming echo to be cancelled as performed in hospital. Lab visit , 08/13/21, 8:30 am [facility]. Lab order placed. Follow up with Dr Ricks at [facility] on 09/02/21, 10:30 am , 10:15 arrival time , [facility]. -At time of follow up, pt to be reassessed with regards to need for additional non invasive testing such as nuclear stress imaging, cardiac catheterization, or ongoing observation.
--- NOTE | 2021-08-11 17:00 | Discharge Summary ---
Date of Service August 11, 2021 Admission HPI Per Admitting Provider This is a 66-year-old male with past medical history significant for type 2 diabetes, diabetic peripheral neuropathy, hyperlipidemia, obstructive sleep apnea, on CPAP, mild persistent asthma without complication, history of paroxysmal supraventricular tachycardia, history of chronic heart failure with preserved ejection fraction, history of hypertension, morbid obesity, generalized osteoarthritis, generalized anxiety disorder, history of COVID-19 in March of 2021, presents with shortness of breath. The patient was camping, at night he was feeling initially some chest heaviness and shortness of breath that was not getting better. When he decided to sleep, he put on CPAP machine, it got worse. Around 2:00 a.m., he called his and came here. He was given neb treatment and a dose of IV Bumex. Currently, resting comfortably and hemodynamically stable, saturating okay on room air. Denies any chest pain currently. He has occasional cough. Denies any fever or chills. No headache, no dizziness, no blurred visions, no earache, no runny nose, no sore throat. Appetite is okay. No difficulty swallowing. No nausea, no abdominal pain, normal bowel and bladder movements. He says lower extremity edema is worsening. Denies any excessive salt intake. He takes Lasix 20 mg daily. He says he has a history of ablation for his paroxysmal supraventricular tachycardia done here in [facility] and later he is currently following with [facility]. He states he takes propafenone for his PSVT. Initially, he thought it was what was causing his shortness of breath. Admission Exam Per Admitting Provider GENERAL: The patient is morbidly obese, currently not in acute distress. VITAL SIGNS: Temperature 36.7, pulse 65, respiratory rate 26, blood pressure 148/75, oxygen 98% on room air. HEENT: Pupils equal, round and reactive to light. Oral mucosa moist. LUNGS: No JVD, no neck masses. CARDIOVASCULAR: S1 and S2 heard. Regular rate and rhythm. No murmur, no gallop. RESPIRATORY SYSTEM: Normal AP diameter. No accessory muscle use. No wheezing, no crackles. ABDOMEN: Soft. Bowel sounds are present, nontender, no distention. CENTRAL NERVOUS SYSTEM: Cranial nerves II-XII grossly intact, nonfocal. EXTREMITIES: Bilateral lower extremity, +2 edema present, no erythema seen. Principal Diagnosis Acute dyspnea, acute right-sided congestive heart failure, symptomatic PVCs Discharge Exam GENERAL: The patient is morbidly obese, currently not in acute distress. HEENT: NC/AT, EOMI, Pupils equal, round and reactive to light. Oral mucosa moist. CARDIOVASCULAR: S1 and S2 heard. Regular rate and rhythm. No murmur, no gallop. RESPIRATORY: Normal AP diameter. No accessory muscle use. CTAB, No wheezing, no crackles. ABDOMEN: Soft. Bowel sounds are present, nontender, no distention. NEURO:Awake and alert, answers appropriately, no facial asymmetry, moves extremities EXTREMITIES: + b/l ankle edema present (much improved from previous exam), no erythema seen. Discharge Data Allergies Allergy/AdvReac Type Severity Reaction Status Date / Time No Known Allergies Allergy Verified 10/08/19 11:06 Consultations 08/10/21 05:08 ED Decision to Admit Stat 08/10/21 08:00 Consult Cardiology Routine Ordered Studies 08/10/21 12:33 CT angio chest PE protocol Stat FINDINGS: Lungs and pleura: Normal. Heart and pericardium: Heart size is normal. No pericardial effusion. Vessels: No evidence of pulmonary embolism. Moderate atherosclerotic disease is seen. Mediastinum and marilyn: Unremarkable. Chest wall and lower neck: Unremarkable. Abdomen: Unremarkable. Bones: Degenerative changes in the thoracic spine. IMPRESSION: No evidence of pulmonary embolism. Hospital Course (1) Acute dyspnea: (2) Acute right-sided congestive heart failure: (3) Symptomatic PVCs: (4) MARY on CPAP: A 66-year-old male who presents with shortness of breath. 1. Shortness of breath, cough, some mild chest discomfort: EKG, no acute findings. Troponin negative. Chest x-ray, pulmonary congestion. He says lower extremity edema is worsening. Most likely symptoms from the [id number] heart failure with preserved ejection fraction. Received IV Bumex 0.5 mg in the ER. The patient is on 20 mg of Lasix at home. On admission started on IV Lasix 40 b.i.d. Troponin x4 Echocardiogram - RV is not well visualized, however appears mildly dilated and hypokinetic in the limited views. Flattened septum is consistent with RV pressure overload. LV is grossly normal size. LV ejection fraction is grossly normal. EF 55 to 60%. Poorly visualized valvular anatomy without significant stenosis or regurg. Monitor in the tele. Cardiology consulted - patient underwent stress echo today, August 11, equivocal due to poor acoustic windows. Ongoing right ventricular enlargement noted. DC recommendations Hold furosemide tomorrow, 08/12/21. Then resume at increased dose of furosemide 40 mg daily. Obtain BMP am of 08/13/21 at . Should perform lab first thing in am to ensure results available RICHARD. Given prolonged QRS duration, discussed reducing his propafenone dose from 425 mg daily to 325 mg daily. Pt states he has already been on 225 and 325 with worsening PVCs, and 425 mg dose recommended by his electrophysiology provider and pt prefers to maintain. Recommend rosuvastatin 10 mg daily. Lab visit , 08/13/21, 8:30 am [facility]. Lab order placed. Follow up with Dr Ricks at [facility] on 09/02/21, 10:30 am , 10:15 arrival time , [facility]. -At time of follow up, pt to be reassessed with regards to need for additional non invasive testing such as nuclear stress imaging, cardiac catheterization, or ongoing observation. 2. History of obstructive sleep apnea: On CPAP at bedtime. 3. History of mild persistent asthma: Continue his home inhaler. 4. History of diabetes: Continue his home Lantus. Placed on insulin sliding scale. Hold metformin. Follow blood sugars. Current HbA1c level 7.2% 5. History of hyperlipidemia: He is allergic to statins. 6. History of paroxysmal supraventricular tachycardia: Status post ablation. Currently on propafenone. Follows with [facility].Also sees [facility] cardiology. 7. Hypertension. Continue his lisinopril. On diuretics. Monitor the blood pressure. 8. Generalized anxiety disorder: On buspirone. 9. Morbid obesity: Needs counseling. DVT prophylaxis: Placed on Lovenox. DISPOSITION:plan to DC home today Code: full code. Total Time Total Time Spent Total Time Spent (In Minutes): 40 Discharge Plan Discharge Items Patient Disposition: Home - Self-Care Reason For Visit: HARD TIME BREATHING,PAIN Discharge Diagnosis: Acute dyspnea, acute right-sided congestive heart failure, symptomatic PVCs Activity: Per Instructions section Non-emergency contact: Primary Care Provider and Hydro Plant Technician Call non-emergency contact if: you have any medication questions and your symptoms worsen Follow-up/Referrals: [facility] Laboratory [Other] (Date & Time 08/13/2021 8:30 AM Provider Lab [facility] Department Laboratory, [facility] ) Braeden Ricks DO [Hydro Plant Technician] - (Date & Time 09/02/2021 10:30 AM Provider Braeden Ricks DO Department Cardiology, [facility] ) Liborio Mc MD [Primary Care Provider] - (Date & Time 08/14/2021 11:00 AM Provider Liborio Mc MD Department Family Practice [facility] ) Diet: Carb Consistent or DM2, Heart Healthy and Low Sodium (2gm) Addtl Attending Provider Instructions: Follow-up with your primary care doctor and cardiology. The appointment with your primary care doctor was scheduled for you for August 14. On August 13, you are scheduled to obtain blood work, in the morning. In the afternoon you will be called about the results and further management. You also need to follow-up with cardiology, as scheduled, September 02. It is recommended that you start taking rosuvastatin, 10 mg daily. Do not take Lasix/furosemide tomorrow, and restart taking it on August 13, at dose 40 mg daily. Addtl Time Buyer Provider Instructions: Non fasting Lab visit , 08/13/21, 8:30 am [facility] for basic metabolic panel. Follow up with Dr Ricks (cardiology) at [facility] on 09/02/21, 10:30 am , 10:15 arrival time , [facility]. Pending Studies at Discharge: No Stand-Alone Forms: My [facility], Smoking Cessation Medications and DC Order Prescriptions: New rosuvastatin [Crestor] 10 mg Tablet 10 mg PO QAM Qty: 30 RF: 0 Continued lisinopril 20 mg tablet 20 mg PO QAM RF: 0 aspirin 81 mg Tablet,Chewable 81 mg PO QAM RF: 0 insulin aspart U-100 [Novolog Flexpen U-100 Insulin] 100 unit/mL insulin pen 1 unit subcut ACHS RF: 0 Lantus Solostar U-100 Insulin 100 unit/mL (3 mL) insulin pen 40 units subcut AMPM RF: 0 metformin 1,000 mg Tablet 1,000 mg PO QAM RF: 0 buspirone 5 mg tablet 5 mg PO BID RF: 0 propafenone 425 mg Capsule,Extended Release 12 Hr 425 mg PO Q12H RF: 0 fluticasone propion-salmeterol 100-50 mcg/dose blister with device 1 inh INHALATION BID RF: 0 Changed furosemide 20 mg tablet 40 mg PO DAILY Qty: 0 RF: 0 Discharge Orders: Discharge Order (Routine); Ordered 08/11/21 Ordered By: Bryce Natarajan/Other Patient Handouts: Managing Type 2 Diabetes Admission Data Admit Date/Time: 08/10/21 06:28 Attending Provider: Bryce Gonsalves Admit Provider: Adi Edward Primary Care Provider: Liborio Mc Other Providers: Adi Edward ; Robby Chew
[2021-08-12] MEDS ORDERED: FUROSEMIDE 40 MG TAB PO SCH (09:00)
[2021-08-12] MEDS ORDERED: ROSUVASTATIN CALCIUM 10 MG TAB PO SCH (09:00)
== END 2021-08-11 17:52 | disposition home or self-care (01) | DRG 292 ==
LOC: ED 03:35 → EDINP 06:28 → 1E 09:31

== ENCOUNTER 2024-09-01 07:44 | Observation (INO) ==
--- NOTE | 2024-09-01 07:49 | Emergency Department Note ---
Impression & Plan Brain TIA, Left hand weakness ED Provider Note NAME: ZAYDA VENEGAS AGE: 69 SEX: M : 1955 ARRIVES VIA: Ambulance INFORMANT: Patient, ED PROVIDER(S): Hermes Rey MD CHIEF COMPLAINT: Hand weakness, numbness MEDICAL DECISION MAKING: Patient presents with the above. Given the patient's complaints of chest heaviness and shortness of breath IV was established and blood work was obtained. Recent negative cardiac catheterization and initial EKG unchanged believe ACS to be unlikely. Patient has had relatively recent CT angiography of the chest and shortness of breath has resolved. Primary issue appears to be the hand weakness and numbness which has since abated. No need for emergent stroke consult CT head and CT angiography of the head and neck are ordered as the patient had a nonfocal neurologic exam currently has equal and symmetric chief financial officer strength and no sensory deficits in the left hand. Patient's blood work shows a normal white count H&H and platelet count kidney function unremarkable BSG 132. Initial troponin negative. Repeat ordered and pending. CT head CT angiography of the head and neck are negative. Did comment some narrowing of the left distal vertebral artery. Chest x-ray is unremarkable. Given the patient's symptoms I did speak to the on-call neurologist who recommended loading with Plavix increasing the patient's rosuvastatin to 20 mg and consider a goal of 40 mg and MRI and stroke workup. I did inform the patient of the findings. He is comfortable plan of care as his at bedside. I did speak with the on-call hospitalist Dr. Valero and the patient was admitted to the medicine service. Discussion w/ other healthcare providers: Dr. Héctor Lorenz neurology Dr. Valero inpatient medicine service Prior /Outside records reviewed: I reviewed part of a cardiology visit note from Dr. Baires from July 20. Patient reported with a prior history of PVCs and additional concerns with regard to propafenone use. Patient reportedly had gone for an attempted ablation but the area of PVCs were too close to left bundle and these were aborted back in 2016. At follow-up at [facility] with a Dr. Garcia started on propafenone. Does report that he has associated shortness of breath at that time. Weight increased about 10 pounds over the last 6 months. Was discussed that the patient may have an accelerated junctional rhythm may benefit from permanent pacemaker. Also of note patient did have a cardiac catheterization July 17 with no obstructive coronary disease at that time. Patient did have a CTA of the chest completed July 21 which was unremarkable and showed only stable cardiomegaly. Differential diagnosis: Cardiac ischemia, aortic dissection, pulmonary embolism, pneumothorax, pneumonia, pericarditis, myocarditis, GERD, cholecystitis, pancreatitis, musculoskeletal, as well as other pathologies were considered. Diagnostics, as interpreted by me: ECG: Sinus bradycardia rate of 55 wide QRS right bundle branch block pattern normal axis no obvious STEMI T wave inversions anteriorly and in V4. EKG looks grossly unchanged from comparison July 21, 2024 Cardiac monitoring: An order was placed for continuous cardiac monitoring. The monitor shows a rate of 62 with sinus rhythm. Patient was placed on pulse oximetry Medical decision rules: None Imaging studies: I informally interpreted the patient's chest x-ray does not show obvious pneumonia with slight elevation of the right hemidiaphragm with formal report to follow. HPI: Patient presents due to concern for chest pain shortness of breath as well as weakness and numbness in the hand. Patient states that he woke up around 530 this morning had a little bit of heaviness across the chest and associated shortness of breath but states that this typically dissipates in the morning as he sits in his recliner. He reports that he did have a recent negative nuclear stress test and cardiac catheterization. Patient states though that he felt as though he had some numbness and difficulty with chief financial officer in his left hand which began around that same time but has since dissipated. Patient denies any history of stroke or mini stroke. No cough or fever no nausea vomiting. Patient states that currently he has no chest pain/heaviness or shortness of breath. Patient denies any falls or trauma. No known sick contacts or any recent travel. No leg swelling or calf pain. Patient does not take any blood thinning medications but does take aspirin. He is also on Crestor. Patient does report that he does suffer from possible carpal tunnel and has had a carpal tunnel release of the right wrist/hand before. PAST MEDICAL HISTORY: See Below PAST SURGICAL HISTORY: See Below SOCIAL HISTORY: See Below HOME MEDICATIONS: See Below ALLERGIES: See Below VITALS: See Below PHYSICAL EXAMINATION: GENERAL: NAD, non-toxic. Obese. Wearing glasses. EYE EXAM: Normal conjunctiva. PERRL, no anisocoria and EOM's grossly intact w/o pain. OROPHARYNX: Moist mucus membranes, grossly normal dentition. NECK: Trachea midline, no stridor. LUNGS: Clear to auscultation. Normal chest wall mechanics. HEART: NSR, no MRG. ABDOMEN: Abdomen soft, non-tender, no masses, no rebound or guarding. BACK: No CVA TTP. SKIN: No rashes and no bruising. UPPER EXTREMITIES: Upper extremities are grossly normal. LOWER EXTREMITIES: Grossly normal, no edema. Negative Homans' sign bilaterally. NEURO EXAM: Awake and alert, follows commands, no obvious facial asymmetry, normal speech, moves all 4 extremities. Good [id number], no drift and no sensory deficits. Equal chief financial officer strength bilaterally and normal sensation in the bilateral hands. Past Med/Surg History Problem List (Updated 09/01/24 @ 10:42 by Hermes Rey MD) Left hand weakness (Acute) Brain TIA (Acute) MARY on CPAP Symptomatic PVCs Acute right-sided congestive heart failure Acute dyspnea (Acute) Chest tightness (Acute) Encounter for pre-operative examination Acute diverticulitis (Acute) Abnormal finding on CT scan Medical History (Updated 09/01/24 @ 10:42 by Hermes Rey MD) Osteoarthritis Anxiety Morbid obesity Hepatic steatosis MARY (obstructive sleep apnea) CPAP T2DM (type 2 diabetes mellitus) HLD (hyperlipidemia) Peripheral edema PVC (premature ventricular contraction) Cellulitis of left leg Back pain Kidney stones Hypertension Surgical History History of arthroscopy of left shoulder History of colonoscopy History of tooth extraction History of cardiac radiofrequency ablation 2017 @ [facility]--follows with [facility] History of cardiac cath 2006 @ [facility], no stents S/P carpal tunnel release right hand History of lumbar laminectomy x2 History of tonsillectomy and adenoidectomy History of arthroscopy of left knee x2 Family History Mother Mycosis fungoides Father CUENCA (nonalcoholic steatohepatitis) Other Cancer Gallbladder disease Hypertension Social History Smoking Status: Never smoker Second Hand Exposure: No; Do You Dip or Chew Tobacco: No; Hx Alcohol Use: No Hx Substance Use: No Preferred Language: Maori Communication Ability: Effective Visual Impairment: No Limitations Hearing Ability: Normal Assayer Helper Required: No Beliefs That Will Affect Care: None marital status: Current Living Situation: Spouse Current Living Situation Comment: At home Feels Safe at Home: Yes Assistive Devices: Cane and Walker Allergies Allergies Allergy/AdvReac Type Severity Reaction Status Date / Time atorvastatin [From Lipitor] AdvReac Intermediate Muscle Pain Verified 07/21/24 15:55 Home Meds Home Medications Medication Instructions Recorded Confirmed aspirin 81 mg chewable tablet 81 mg PO QAM 01/01/18 09/01/24 insulin aspart U-100 100 unit/mL 15 unit subcut QID 01/01/18 09/01/24 (3 mL) subcutaneous pen (Novolog FlexPen U-100 Insulin aspart) insulin glargine 100 unit/mL (3 40 units subcut AMPM 01/01/18 09/01/24 mL) subcutaneous pen (Lantus Solostar U-100 Insulin) Lactobacillus acidophilus 10 10,000 mmu cells PO QAM 07/21/24 09/01/24 billion cell capsule (Probiotic) albuterol sulfate 90 mcg/actuation 2 puff inhalation Q4H PRN 07/21/24 09/01/24 aerosol inhaler (Ventolin HFA) Shortness Of Breath Or Wheezing buspirone 5 mg tablet 5 mg PO BID 07/21/24 09/01/24 celecoxib 200 mg capsule 400 mg PO QAM 07/21/24 09/01/24 empagliflozin 25 mg tablet 25 mg PO QAM 07/21/24 09/01/24 (Jardiance) furosemide 40 mg tablet 40 mg PO QAM 07/21/24 09/01/24 metformin 500 mg tablet,extended 1,000 mg PO QAM 07/21/24 09/01/24 release 24 hr metoprolol succinate 25 mg 25 mg PO QAM 07/21/24 09/01/24 tablet,extended release 24 hr spironolactone 25 mg tablet 25 mg PO QAM 07/21/24 09/01/24 albuterol sulfate 2.5 mg/3 mL 2.5 mg inhalation DIRECTED PRN 09/01/24 09/01/24 (0.083 %) solution for nebulization sob tiotropium bromide 18 mcg capsule 18 mcg inhalation QAM 09/01/24 09/01/24 with inhalation device Previous Rx's Medication Instructions Recorded rosuvastatin 10 mg tablet (Crestor) 10 mg PO QAM #30 tabs 08/11/21 Results & Data (ED) Vital Signs Vital Signs - 24 hr 09/01/24 07:35 09/01/24 07:47 09/01/24 07:51 Temperature 36.8 C Temperature Source Oral Pulse Rate 60 Pulse Rate [Apical] Respiratory Rate 18 Respiratory Effort / Characteristics Non-Labored Spontaneous Respiratory Depth Normal Respiratory Pattern Regular Blood Pressure 186/93 H Blood Pressure [Right Arm] Blood Pressure Mean 124 Blood Pressure Mean [Right Arm] Pulse Oximetry 98 98 98 Oxygen Delivery Method Room Air Room Air Room Air Sepsis Recent Fever Within 48 Hours No Sepsis New/Unexplained Change in Mental Status N/A Sepsis Action Taken by Nursing No Action Required 09/01/24 08:44 09/01/24 08:46 09/01/24 10:00 Temperature Temperature Source Pulse Rate 52 L Pulse Rate [Apical] 52 L 50 L Respiratory Rate 18 18 Respiratory Effort / Characteristics Non-Labored Spontaneous Non-Labored Spontaneous Respiratory Depth Normal Normal Respiratory Pattern Regular Regular Blood Pressure Blood Pressure [Right Arm] 135/68 145/77 H Blood Pressure Mean Blood Pressure Mean [Right Arm] 90 99 Pulse Oximetry 99 100 Oxygen Delivery Method Room Air Room Air Sepsis Recent Fever Within 48 Hours Sepsis New/Unexplained Change in Mental Status Sepsis Action Taken by [facility] Medications Current Medication List: was personally reviewed by me Laboratory Data Attestation: I reviewed the patient's lab results. 09/01/24 07:47 09/01/24 07:50 Lab Results 09/01/24 09/01/24 09/01/24 Range/Units 07:47 07:50 09:09 WBC 6.22 (4.8-10.8) K/ul RBC 5.41 (4.70-6.10) M/uL Hgb 16.3 (14.0-18.0) g/dl Hct 47.9 (42.0-52.0) % MCV 88.5 (80.0-100.0) fL MCH 30.1 (25.0-34.0) pg MCHC 34.0 (32.0-36.0) g/dL RDW Std Deviation 45.0 (36.4-46.3) fL RDW Coeff of Saige 14.0 (11.5-14.5) % Plt Count 253 (130-400) K/uL MPV 8.7 L (9.4-12.4) fL Immature Gran % (Auto) 0.5 % Neut % (Auto) 57.6 % Lymph % (Auto) 26.0 % [place] % (Auto) 12.5 % Eos % (Auto) 2.4 % Baso % (Auto) 1.0 % Neut # (Auto) 3.58 (1.40-6.50) K/uL Lymph # (Auto) 1.62 (1.20-3.40) K/uL [place] # (Auto) 0.78 H (0.11-0.59) K/uL Eos # (Auto) 0.15 (0.00-0.50) K/uL Baso # (Auto) 0.06 (0.00-0.20) K/uL Immature Gran # (Auto) 0.03 (0.01-0.20) K/uL PT 10.9 (9.0-12.0) Seconds INR 1.0 (0.9-1.1) APTT 24 (21-31) Seconds PTT Ratio 0.9 Sodium 138 (136-145) mmol/L Potassium 4.2 (3.5-5.1) mmol/L Chloride 103 (98-107) mmol/L Carbon Dioxide 27 (21-32) mmol/L Anion Gap 8 (3-11) BUN 25 H (6-23) mg/dl Creatinine 1.29 (0.6-1.4) mg/dl Est Cr Clr Drug Dosing 69.1 ml/min eGFR 59.28 BUN/Creatinine Ratio 19.4 (10-20) Glucose 132 H (70-99(Fasting)) mg/dl Calcium 9.2 (8.6-10.3) mg/dl Magnesium 2.2 (1.7-2.4) mg/dl Total Bilirubin 0.8 (0.2-1.0) mg/dl AST 16 (13-39) U/L ALT 17 (7-52) U/L Alkaline Phosphatase 59 (34-104) U/L Troponin I High Sens 9.3 7.3 (0-20) pg/ml Total Protein 6.7 (6.0-8.3) gm/dl Albumin 4.0 (3.4-5.0) gm/dl Globulin 2.7 (2.5-4.0) gm/dl Albumin/Globulin Ratio 1.5 (0.9-2) Lipase 22 (11-82) U/L Administered Medications Discontinued Medications Clopidogrel Bisulfate (Clopidogrel Bisulfate 300 Mg Tab) 300 mg PO NOW STA Stop: 09/01/24 09:15 Last Admin: 09/01/24 09:19 Dose: 300 mg Documented By: GCC Ioversol (Optiray 320 125ml) 120 ml IV ONCE ONE Stop: 09/01/24 08:33 Last Admin: 09/01/24 08:33 Dose: 120 ml Documented By: ABS Imaging Data Radiologist's Impression: Chest X-Ray 09/01/24 07:47 XR chest 1V portable CLINICAL HISTORY: Chest pain, nonspecific COMPARISON STUDY: 07/21/2024 FINDINGS: Stable mild cardiomegaly without pulmonary vascular congestion. No effusion, consolidation, or pneumothorax. IMPRESSION: No acute findings. ACT 112: Negative or not required by law. Electronically signed by: Javier Love M.D. 09/01/2024 8:[address] 09/01/24 08:03 CT head/brain wo con CLINICAL HISTORY: L hand numbness/weakness. TECHNIQUE: Multiple axial CT images of the head were obtained without contrast. A dose lowering technique was utilized adhering to the principles of ALARA. CT DOSE: 1362 COMPARISON: 11/09/2018 FINDINGS: No intracranial hemorrhage seen. No mass effect, midline shift, or hydrocephalus. There are mild chronic small vessel ischemic changes. No skull fracture seen. Visualized paranasal sinuses and mastoid air cells are clear. IMPRESSION: No acute findings. ACT 112: Negative or not required by law. The above report was generated using voice recognition software. It may contain grammatical, syntax or spelling errors. Electronically signed by: Javier Love M.D. 09/01/2024 8:46 AM Head CTA 09/01/24 08:03 CT angio neck with con, CT angio head w con CLINICAL HISTORY: L hand numb/weak. TECHNIQUE: Following the IV administration of 120 of Optiray, CT angiogram of the neck and brain was performed from the aortic arch to the skull base. Images are reviewed in the axial, sagittal, and coronal planes. 3-D MIPS images are created and assessed. IV contrast was administered without complication. All measurements were calculated based on NASCET criteria. A dose lowering technique was utilized adhering to the principles of ALARA. CT DOSE: 1362.11 mGy.cm COMPARISON STUDY: None FINDINGS: The origin of the left common carotid artery is off the field of view inferiorly. There are mild calcifications at the carotid bulbs and distally at the internal carotid arteries. No significant narrowing or occlusion seen at the common or internal carotid arteries bilaterally. There are calcifications distally at the vertebral arteries. There is moderate narrowing distally at the left vertebral artery. There is mild narrowing at the origin of the left vertebral artery. No other significant narrowing or occlusion seen at the vertebral arteries. Basilar artery is widely patent. Anterior, middle, and posterior cerebral arteries are patent bilaterally. Cerebral venous sinuses opacify normally. There are diffuse degenerative changes at the cervical spine. IMPRESSION: 1. Moderate narrowing distally at the left vertebral artery. 2. No other significant arterial narrowing or occlusion seen at the neck or brain. ACT 112: Negative or not required by law. The above report was generated using voice recognition software. It may contain grammatical, syntax or spelling errors. Electronically signed by: Javier Love M.D. 09/01/2024 8:52 AM Neck CTA 09/01/24 08:03 CT angio neck with con, CT angio head w con CLINICAL HISTORY: L hand numb/weak. TECHNIQUE: Following the IV administration of 120 of Optiray, CT angiogram of the neck and brain was performed from the aortic arch to the skull base. Images are reviewed in the axial, sagittal, and coronal planes. 3-D MIPS images are created and assessed. IV contrast was administered without complication. All measurements were calculated based on NASCET criteria. A dose lowering technique was utilized adhering to the principles of ALARA. CT DOSE: 1362.11 mGy.cm COMPARISON STUDY: None FINDINGS: The origin of the left common carotid artery is off the field of view inferiorly. There are mild calcifications at the carotid bulbs and distally at the internal carotid arteries. No significant narrowing or occlusion seen at the common or internal carotid arteries bilaterally. There are calcifications distally at the vertebral arteries. There is moderate narrowing distally at the left vertebral artery. There is mild narrowing at the origin of the left vertebral artery. No other significant narrowing or occlusion seen at the vertebral arteries. Basilar artery is widely patent. Anterior, middle, and posterior cerebral arteries are patent bilaterally. Cerebral venous sinuses opacify normally. There are diffuse degenerative changes at the cervical spine. IMPRESSION: 1. Moderate narrowing distally at the left vertebral artery. 2. No other significant arterial narrowing or occlusion seen at the neck or brain. ACT 112: Negative or not required by law. The above report was generated using voice recognition software. It may contain grammatical, syntax or spelling errors. Electronically signed by: Javier Love M.D. 09/01/2024 8:52 AM Discharge Plan Visit Data Chief Complaint: Chest Pain Stated Complaint: SOB, CHEST PRESSURE, WEAK & TINGLING IN ARM ED Provider: Hermes Rey Discharge Problem: Brain TIA, Left hand weakness Patient Disposition: Admitted As Inpatient Condition: Good Forms Stand Alone Forms: [facility] Prescriptions Prescriptions: No Action aspirin 81 mg Tablet,Chewable 81 mg PO QAM insulin aspart U-100 [Novolog FlexPen U-100 Insulin] 100 unit/mL insulin pen 15 unit subcut QID Rx Instructions: COVERAGE DIRECTED BY SLIDING SCALE insulin glargine [Lantus Solostar U-100 Insulin] 100 unit/mL (3 mL) insulin pen 40 units subcut AMPM rosuvastatin [Crestor] 10 mg Tablet 10 mg PO QAM Qty: 30 0RF celecoxib 200 mg capsule 400 mg PO QAM furosemide 40 mg tablet 40 mg PO QAM Rx Instructions: MAY TAKE ADDITIONAL DOSE IF WT INCREASES >2# IN 48 HRS, OR 5# IN A WEEK. buspirone 5 mg tablet 5 mg PO BID spironolactone 25 mg tablet 25 mg PO QAM metoprolol succinate 25 mg tablet extended release 24 hr 25 mg PO QAM albuterol sulfate [Ventolin HFA] 90 mcg/actuation Hfa Aerosol Inhaler 2 puff INHALATION Q4H PRN (Reason: Shortness Of Breath Or Wheezing) metformin 500 mg tablet extended release 24 hr 1,000 mg PO QAM Probiotic 10 billion cell Capsule 10,000 mmu cells PO QAM Jardiance 25 mg tablet 25 mg PO QAM albuterol sulfate 2.5 mg /3 mL (0.083 %) solution for nebulization 2.5 mg inhalation DIRECTED PRN (Reason: sob) tiotropium bromide 18 mcg capsule, w/inhalation device 18 mcg INHALATION QAM Referrals Referrals: Liborio Mc MD [Primary Care Provider] -
[2024-09-01 08:00] LABS: Basophils # (auto) 0.06 K/uL (0.00-0.20); Eosinophils # (auto) 0.15 K/uL (0.00-0.50); Eosinophils % (auto) 2.4 %; Hematocrit (blood only) 47.9 % (42.0-52.0); Hemoglobin 16.3 g/dl (14.0-18.0); Immature Granulocytes # (auto) 0.03 K/uL (0.01-0.20); Immature Granulocytes % (auto) 0.5 %; Lymphocytes # (auto) 1.62 K/uL (1.20-3.40); Mean Corpuscular Hemoglobin 30.1 pg (25.0-34.0); Mean Corpuscular Volume 88.5 fL (80.0-100.0); Mean Platelet Volume 8.7 fL (9.4-12.4); Monocytes # (auto) 0.78 K/uL (0.11-0.59); Monocytes % (auto) 12.5 %; Neutrophils # (auto) 3.58 K/uL (1.40-6.50); Neutrophils % (auto) 57.6 %; Platelet Count 253 K/uL (130-400); Red Blood Count 5.41 M/uL (4.70-6.10); White Blood Count 6.22 K/ul (4.8-10.8)
--- NOTE | 2024-09-01 08:18 | XRay Report ---
XR chest 1V portable CLINICAL HISTORY: Chest pain, nonspecific COMPARISON STUDY: 07/21/2024 FINDINGS: Stable mild cardiomegaly without pulmonary vascular congestion. No effusion, consolidation, or pneumothorax. IMPRESSION: No acute findings. ACT 112: Negative or not required by law. Electronically signed by: Javier Love M.D. 09/01/2024 8:15 AM
[2024-09-01 08:21] LABS: Albumin Globulin Ratio 1.5 (0.9-2); BUN Creatinine Ratio 19.4 (10-20); Bilirubin,Total 0.8 mg/dl (0.2-1.0); Calcium 9.2 mg/dl (8.6-10.3); Creatinine Clr Calc Pharmacy 69.1 ml/min; Globulin 2.7 gm/dl (2.5-4.0); Magnesium 2.2 mg/dl (1.7-2.4); Potassium 4.2 mmol/L (3.5-5.1); Total Protein 6.7 gm/dl (6.0-8.3)
[2024-09-01 08:27] LABS: Troponin I High Sensitivity 9.3 pg/ml (0-20)
[2024-09-01 08:29] LABS: Partial Thromboplastin Ratio 0.9; Partial Thromboplastin Time 24 Seconds (21-31); Prothrombin Time 10.9 Seconds (9.0-12.0)
[2024-09-01] MEDS: OPTIRAY 320 125ml IV ONE (08:33)
--- NOTE | 2024-09-01 08:48 | CT Scan Report ---
CT head/brain wo con CLINICAL HISTORY: L hand numbness/weakness. TECHNIQUE: Multiple axial CT images of the head were obtained without contrast. A dose lowering tech nique was utilized adhering to the principles of ALARA. CT DOSE: 1362 COMPARISON: 11/09/2018 FINDINGS: No intracranial hemorrhage seen. No mass effect, midline shift, or hydrocephalus. There are mild chronic small vessel ischemic changes. No skull fracture seen. Visualized paranasal sinuses and mastoid air cells are clear. IMPRESSION: No acute findings. ACT 112: Negative or not required by law. The above report was generated using voice recognition software. It may contain grammatical, syntax o r spelling errors. Electronically signed by: Javier Love M.D. 09/01/2024 8:46 AM
--- NOTE | 2024-09-01 08:55 | CT Scan Report ---
CT angio neck with con, CT angio head w con CLINICAL HISTORY: L hand numb/weak. TECHNIQUE: Following the IV administration of 120 of Optiray, CT angiogram of the neck and brain was performed from the aortic arch to the skull base. Images are reviewed in the axial, sagittal, and cor onal planes. 3-D MIPS images are created and assessed. IV contrast was administered without complicat ion. All measurements were calculated based on NASCET criteria. A dose lowering technique was utiliz ed adhering to the principles of ALARA. CT DOSE: 1362.11 mGy.cm COMPARISON STUDY: None FINDINGS: The origin of the left common carotid artery is off the field of view inferiorly. There are mild calcifications at the carotid bulbs and distally at the internal carotid arteries. No significa nt narrowing or occlusion seen at the common or internal carotid arteries bilaterally. There are calc ifications distally at the vertebral arteries. There is moderate narrowing distally at the left verte bral artery. There is mild narrowing at the origin of the left vertebral artery. No other significant narrowing or occlusion seen at the vertebral arteries. Basilar artery is widely patent. Anterior, mi ddle, and posterior cerebral arteries are patent bilaterally. Cerebral venous sinuses opacify normall y. There are diffuse degenerative changes at the cervical spine. IMPRESSION: 1. Moderate narrowing distally at the left vertebral artery. 2. No other significant arterial narrowing or occlusion seen at the neck or brain. ACT 112: Negative or not required by law. The above report was generated using voice recognition software. It may contain grammatical, syntax o r spelling errors. Electronically signed by: Javier Love M.D. 09/01/2024 8:52 AM
[2024-09-01] MEDS: CLOPIDOGREL BISULFATE 300 MG TAB PO STA (09:19)
[2024-09-01] MEDS ORDERED: GLUCAGON FOR INJ 1 MG VIAL SQ PRN (10:09)
[2024-09-01] MEDS ORDERED: GLUCOSE 10 TAB/TUBE PO PRN (10:09)
[2024-09-01] MEDS ORDERED: DEXTROSE 50% 50 ML SYRINGE IV PRN (10:09)
[2024-09-01] MEDS ORDERED: CARBOHYDRATES FOR HYPOGLYCEMIA PO PRN (10:09)
[2024-09-01] MEDS ORDERED: MAGNESIUM HYDROXIDE SUSP 30 ML UDC PO PRN (10:09)
[2024-09-01] MEDS ORDERED: PHARMACY GLYCEMIC MGMT CONSULT PRN (10:09)
[2024-09-01] MEDS ORDERED: GLUCOSE 40% GEL 15 GM TUBE PO PRN (10:09)
[2024-09-01] MEDS ORDERED: ALBUTEROL HFA 8 GM INHALER INH PRN (10:14)
--- NOTE | 2024-09-01 10:19 | History & Physical Report ---
Date of Service September 01, 2024 Assessment & Plan (1) Chest tightness: Plan Assessment/plan Recurrent Substernal Chest pressure ?Microvascular Angina Patient presents to the hospital with substernal chest pressure with radiation to left arm/numbness. He EKG on admission shows normal sinus rhythm with a right bundle branch block; no ST or T wave changes High sensitive troponin negative x 2 Last cardiac cath in July 17, 2024no obstructive coronary artery disease. Continue on aspirin, increase Lipitor to 20 mg once a day; obtain lipid panel in the a.m. Will get cardiology input regarding possibly addition of nitrates given his recurrent symptoms of chest pressure/pain.? Microvascular heart disease/angina Continue on metoprolol. Continue telemonitoring Left arm weakness/numbness Possible TIA Patient also had episode of decrease in left school health aide strength during the episode which resolved spontaneously CT head did not show any acute findings. CTA head and neck showed moderate narrowing distally at left vertebral artery. Loaded with Plavix 300 mg in ED; will place him on Plavix 75 mg along with aspirin from tomorrow a.m. Increase rosuvastatin to 20 mg; Obtain MRI brain without contrast PT OT evaluation Type 2 diabetes mellituscontinue on insulin while inpatient Frequent PVCscontinue on metoprolol succinate 25 mg CHFpEFappears compensated; continue on metoprolol, spironolactone, Jardiance and Lasix. CKD stage IIIacreatinine at baseline; Generalized anxiety disordercontinue buspirone Mild persistent asthmacontinue at home inhalers Hypertensioncontinue on metoprolol Hyperlipidemiaincrease rosuvastatin to 20 mg once a day OSAcontinue on CPAP Full code DVT prophylaxis heparin Time spent evaluating patient, direct bedside care, chart review, placing orde rs, interpretation of diagnostic studies, discussion with consultants, patient, and family members, as well as other required patient management activities is 75 minutes Please note the above document was generated using voice recognition software. It may contain grammatical, syntax or spelling errors. Any formal questions or concerns about the content, text or information contained within the body of this dictation should be directly addressed to the provider for clarification History of Present Illness Chief Complaint: Chest pressure for 1 day Left arm pain/numbness for 1 day Primary Care Provider: Liborio Mc MD History obtained from chart review and interview with the patient Past medical history of type 2 diabetes mellitus, diabetic peripheral neuropathy, hyperlipidemia, MARY on CPAP, mild persistent asthma, CHF with preserved EF, hypertension, frequent PVC, and stage IIIa CKD, generalized anxiety disorder. Last cardiac cath in July 17, 2024no obstructive coronary artery disease. Patient presented to the hospital with Substernal chest pressure which woke him up from his sleep around 5 AM. He reports that the pain was accompanied by pain in his left arm along with numbness. He also reports shortness of breath during the episode. The episode was also accompanied by weakness of school health aide of his left arm. He reports that he gets chest pressure intermittently since last several months and has undergone several workup including recent cardiac cath. However, he reports that the chest pressure this time was accompanied by left arm numbness/pain which was not there before. He denies diaphoresis, fever, chills, abdominal pain or urinary symptoms. On presentation to the ED, he was afebrile, normotensive and saturating well on room air. CBC did not reveal any leukocytosis. BUN/creatinine at baseline. EKG showed normal sinus rhythm With right bundle branch block; no significant ST or T wave changes. Chest x-rayno acute finding. CT head did not show any acute findings. CTA head and neck showed moderate narrowing distally at left vertebral artery. Discussion was done with neurology on-call regarding patient's symptoms; recommended loading with Plavix 300 mg and 75 daily, workup for stroke with MRI brain, echocardiogram and increasing Crestor to 20 mg once a day. Allergies Allergy/AdvReac Type Severity Reaction Status Date / Time atorvastatin [From Lipitor] AdvReac Intermediate Muscle Pain Verified 07/21/24 15:55 Home Medications Medication Instructions Recorded Confirmed Type aspirin 81 mg chewable tablet 81 mg PO QAM 01/01/18 09/01/24 History insulin aspart U-100 100 unit/mL 15 unit subcut QID 01/01/18 09/01/24 History (3 mL) subcutaneous pen (Novolog FlexPen U-100 Insulin aspart) insulin glargine 100 unit/mL (3 40 units subcut AMPM 01/01/18 09/01/24 History mL) subcutaneous pen (Lantus Solostar U-100 Insulin) rosuvastatin 10 mg tablet (Crestor) 10 mg PO QAM #30 tabs 08/11/21 09/01/24 Rx Lactobacillus acidophilus 10 10,000 mmu cells PO QAM 07/21/24 09/01/24 History billion cell capsule (Probiotic) albuterol sulfate 90 mcg/actuation 2 puff inhalation Q4H PRN 07/21/24 09/01/24 History aerosol inhaler (Ventolin HFA) Shortness Of Breath Or Wheezing buspirone 5 mg tablet 5 mg PO BID 07/21/24 09/01/24 History celecoxib 200 mg capsule 400 mg PO QAM 07/21/24 09/01/24 History empagliflozin 25 mg tablet 25 mg PO QAM 07/21/24 09/01/24 History (Jardiance) furosemide 40 mg tablet 40 mg PO QAM 07/21/24 09/01/24 History metformin 500 mg tablet,extended 1,000 mg PO QA 07/21/24 09/01/24 History release 24 hr metoprolol succinate 25 mg 25 mg PO QA 07/21/24 09/01/24 History tablet,extended release 24 hr spironolactone 25 mg tablet 25 mg PO QA 07/21/24 09/01/24 History albuterol sulfate 2.5 mg/3 mL 2.5 mg inhalation DIRECTED PRN 09/01/24 09/01/24 History (0.083 %) solution for nebulization sob tiotropium bromide 18 mcg capsule 18 mcg inhalation QAM 09/01/24 09/01/24 History with inhalation device Past Med/Surg History Problem List (Updated 09/01/24 @ 14:13 by Liborio Anaya DO) Stroke-like symptoms Sinus bradycardia Acute on chronic right-sided congestive heart failure Acute on chronic diastolic heart failure with preserved ejection fraction Left hand weakness (Acute) Brain TIA (Acute) MARY on CPAP Symptomatic PVCs Acute right-sided congestive heart failure Acute dyspnea (Acute) Chest tightness (Acute) Encounter for pre-operative examination Acute diverticulitis (Acute) Abnormal finding on CT scan Medical History (Updated 09/01/24 @ 14:13 by Liborio Anaya DO) Osteoarthritis Anxiety Morbid obesity Hepatic steatosis MARY (obstructive sleep apnea) CPAP T2DM (type 2 diabetes mellitus) HLD (hyperlipidemia) Peripheral edema PVC (premature ventricular contraction) Cellulitis of left leg Back pain Kidney stones Hypertension Surgical History History of arthroscopy of left shoulder History of colonoscopy History of tooth extraction History of cardiac radiofrequency ablation 2018 @ [facility]--follows with [facility] Cardiology History of cardiac cath 2006 @ [facility], no stents S/P carpal tunnel release right hand History of lumbar laminectomy x2 History of tonsillectomy and adenoidectomy History of arthroscopy of left knee x2 Family History Mother Mycosis fungoides Father CUENCA (nonalcoholic steatohepatitis) Other Cancer Gallbladder disease Hypertension Social History Smoking Status: Never smoker Second Hand Exposure: No; Do You Dip or Chew Tobacco: No; Hx Alcohol Use: No Hx Substance Use: No Preferred Language: [place] Communication Ability: Effective Visual Impairment: No Limitations Hearing Ability: Normal Flight Attendant/Inflight Manager Required: No Beliefs That Will Affect Care: None marital status: Current Living Situation: Spouse Current Living Situation Comment: lives at home with Feels Safe at Home: Yes Safety Concerns: Feels Safe At This Time Assistive Devices: Cane and Walker Physical Exam Physical Exam: On physical examination; Constitutional: WD/WN, vitals as above, NAD, sitting up in bed, pleasant, conversing easily Head: Normocephalic, Atraumatic Eyes: PERRL, conjunctivae normal, anicteric sclerae ENMT: external ear and nose normal, oropharynx normal Neck: trachea midline, no thyromegaly normal visual inspection Respiratory: normal respiratory effort, lungs clear to auscultation, no wheeze, rales, rhonchi. Normal insp/exp effort, no accessory muscle use Cardiovascular: RRR, no murmur, no edema Vessels: no JVD or carotid bruit Chest: normal inspection of chest Abdomen: normal bowel sounds, soft, nontender, no hepatosplenomegaly Musculoskeletal: no cyanosis or clubbing, extremities motor strength 5/5 Skin: no rashes, warm and dry normal turgor Neurologic: PERRL, EOMI, accommodation nl, no face palsy, no dysarthria CN's II- XI intact bilaterally and moves all extremities Psychiatric: A+Ox3, euthymic affect Results & Data Results & Data Vital Signs (Past 12 Hours) Vital Signs Temp Pulse Pulse Resp BP BP Pulse Ox 09/01/24 10:00 50 L 18 145/77 H 100 09/01/24 08:46 52 L 09/01/24 08:44 52 L 18 135/68 99 09/01/24 07:51 98 09/01/24 07:47 98 09/01/24 07:35 36.8 C 60 18 186/93 H 98 O2 Del Method 09/01/24 10:00 Room Air 09/01/24 08:46 09/01/24 08:44 Room Air 09/01/24 07:51 Room Air 09/01/24 07:47 Room Air 09/01/24 07:35 Room Air Code Status & VTE Plan VTE Prophylaxis Plan VTE Prophylaxis will be ordered: Yes
[2024-09-01] MEDS: ASPIRIN 81 MG CHEW PO SCH (10:50)
--- NOTE | 2024-09-01 11:36 | Magnetic Resonance Report ---
MR brain wo con CLINICAL HISTORY: eval for stroke COMPARISON STUDY: CT earlier today and MRI of 07/12/2011 FINDINGS: No restricted diffusion seen to suggest acute infarction. No mass effect, midline shift, or hydrocephalus. There are moderate scattered foci of increased FLAIR signal intensity in the perivent ricular white matter which is nonspecific, but usually represents chronic small vessel ischemic cabrera e. IMPRESSION: No evidence of acute infarction. ACT 112: Negative or not required by law. Electronically signed by: Javier Love M.D. 09/01/2024 11:35 AM
[2024-09-01] MEDS: ROSUVASTATIN CALCIUM 20 MG TAB PO ONE (12:18)
[2024-09-01] MEDS: FUROSEMIDE 40 MG TAB PO SCH (12:18)
[2024-09-01] MEDS: SPIRONOLACTONE 25 MG TAB PO ONE (12:19)
[2024-09-01] MEDS: INSULIN ASPART PER UNIT CHARGE SC SCH (12:40)
--- NOTE | 2024-09-01 12:42 | Cardiology Consultation ---
Date of Consultation September 01, 2024 Assessment & Plan (1) Chest tightness: (2) Left hand weakness: (3) Acute on chronic diastolic heart failure with preserved ejection fraction: (4) Acute on chronic right-sided congestive heart failure: (5) Sinus bradycardia: Plan Patient admitted with worsening SOB/chest tightness, beginning overnight rating 6/10 substernal tightness with associated conversational dyspnea and left arm/hand tingling. EKG demonstrating NSR without acute ischemic changes HS troponin negative x2 Head/neck CTA unremarkable except for moderate narrowing of the left vertebral artery. He had recent heart cath July 2024 demonstrating only mild luminal irregularities of his coronary arteries. Continue ASA, statin, metoprolol. Symptoms are unlikely to be anginal equivalent. Chest xray with possible pulm vascular congestion per my review. Given his 10 lb weight gain over the last 1-2 months, worsening SOB, history of right heart failure, his symptoms are suggestive of acute on chronic HFpEF/right heart failure. Recommend trial of IV furosemide 40 mg x1 dose now. Acceptable to give in addition to his furosemide 40 mg PO already received this morning. Continue spironolactone 25 mg . monitor I+O's Daily weight with standing scale. Baseline bailey 260-270's per patient. Per review of outpatient weights, they has been trending upward over the last few months correlating with his symptoms. Monitor renal function and electrolytes. He has a history of bradycardia and intermittent accelerated junctional rhythm. HR currently in the 50's Continue metoprolol. Patient also has further work up from a pulmonary perspective next week at . Recent chest CT in July 2024 was negative for evidence of PE. MARY- with CPAP compliance -arrange for CPAP tonight Further recommendations pending discussion and review with Dr. Chew I spent a total of 60 minutes on the date of service in preparation, delivery, and documentation of the care provided to this patient, excluding any time spent in the performance of separately billed services. Latoya Rivas PA-C Department of Cardiology, [facility] This chart was completed in part utilizing Speech Voice Recognition Software. Grammatical errors, random word insertions, pronoun errors, and incomplete sentences are an occasional consequence of this system due to software limitations, ambient noise, and hardware issues. Any formal questions or concerns about the content, text, or information contained within the body of this dictation should be directly addressed to the provider for clarification. Supervising Physician Co-Signing Physician Notes Attending attestation: Case reviewed with the advanced practitioner. I have personally performed a history and physical examination on the patient. I have reviewed the advanced practitioner's documentation on the date of service referenced in note, and I agree with, and take responsibility for the plan of care. Patient notes recurrent episodes of chest pressure x 6 months. He states that the difference with today's episode was that he felt associated left arm/hand numbness. The numbness has since resolved. He continues to have 6/10 chest pressure during my assessment. He has already had cardiac catheterization with no obstructive coronary heart disease as a culprit. Blood pressure is well-controlled Sinus bradycardia in the 50s with right bundle branch block noted on EKG/telemetry. MRI of the brain negative for acute stroke. Recommend intensified diuretic therapy for suspected diastolic heart failure. Unfortunately, filling pressures not obtained at the time of his recent cardiac catheterization. No need to repeat echocardiogram Has he has already had a study for the same indication 4 months ago as an outpatient with results as noted. I spent a total of 20 minutes coordinating, documenting, and providing care for this patient excluding time spent in the performance of separately billed services or time spent by another provider. Robby Chew, History of Present Illness Reason for Consultation: chest pain Requesting Physician: [facility]le[facility] Hospitalist Attending Physician: Dr. Chew History of Present Illness Patient is a 69 year old male who presented to [facility] with complaints of chest tightness earlier this morning associated shortness of breath. This awakened him from sleep around 4:00 AM and he went to his recliner. He then developed left hand and arm numbness and tingling and decided to come to the ER. History includes: 1. Dyspnea, with abnormal nuclear stress test in June 2024 - Cardiac cath revealing only mild non obstructive CAD. 2. Frequent PVC's - improved s/p albation in 2016 3. Accelerated junctional rhythm - possibly contributing to SOB per EP July 2024 (requested pulm work up first, then consider pacemaker?). Currently NSR 4. HTN 5. Obesity 6. MARY on CPAP Patient reports worsening SOB over the last year, particularly with exertion but also noted at rest with intermittent chest tightness. This is the reason he had nuclear stress test in June which was abnormal and [place] [facility] [place] only mild luminal irregularities. He has upcoming pulm tests including PFT's and is to see pulmonology for evaluation. He reports weight gain of approx 15 lbs over the last few months but admits to not weighing himself daily. No cough. He admits to orthopnea, but reports this is due to CPAP and comfort. He admits to intermittent abdominal bloating. He takes furosemide 40 mg and spironolactone as an outpatient but has not tried increasing dose to aid with SOB. Wt Readings from Last 10 Encounters: (Outpatient) Now 285 lbs - 129.9 kg. 07/17/24 127.5 kg (281 lb) 06/18/24 127.7 kg (281 lb 9.6 oz) 05/01/24 124.7 kg (275 lb) 04/24/24 124.7 kg (275 lb) 04/13/24 124.7 kg (275 lb) 02/29/24 123.8 kg (273 lb) 12/12/23 123.4 kg (272 lb) 09/21/23 120.7 kg (266 lb) 07/19/23 117.5 kg (259 lb) 04/27/23 119.6 kg (263 lb 11.2 oz) He has had intermittent accelerated junctional rhythm as an outpatient and Rythmol was discontinued. Maintained in NSR Since admission he had head CT which was negative for acute pathology. Neck CTA demonstrated Moderate distal narrowing of the left vertebral artery. Brain MRI was negative for acute pathology. High-sensitivity troponin negative x 2 since admission. Chest x-ray per my review demonstrates possible mild pulmonary vascular congestion. EKG demonstrated sinus hoang without acute ischemic changes. Chest CT in July demonstrated no PE or acute pathology. At time of consult, patient resting in bed comfortably. He does admit to ongoing 6 out of 10 chest tightness with shortness of breath. He does seem short of breath with conversation. He has intermittent left hand tingling that seems to come and go. He does admit this seems similar to prior carpal tunnel in his right hand. Allergies Allergy/AdvReac Type Severity Reaction Status Date / Time atorvastatin [From Lipitor] AdvReac Intermediate Muscle Pain Verified 07/21/24 15:55 Home Medications Medication Instructions Recorded Confirmed Type aspirin 81 mg chewable tablet 81 mg PO QAM 01/01/18 09/01/24 History insulin aspart U-100 100 unit/mL 15 unit subcut QID 01/01/18 09/01/24 History (3 mL) subcutaneous pen (Novolog FlexPen U-100 Insulin aspart) insulin glargine 100 unit/mL (3 40 units subcut AMPM 01/01/18 09/01/24 History mL) subcutaneous pen (Lantus Solostar U-100 Insulin) rosuvastatin 10 mg tablet (Crestor) 10 mg PO QAM #30 tabs 08/11/21 09/01/24 Rx Lactobacillus acidophilus 10 10,000 mmu cells PO QAM 07/21/24 09/01/24 History billion cell capsule (Probiotic) albuterol sulfate 90 mcg/actuation 2 puff inhalation Q4H PRN 07/21/24 09/01/24 History aerosol inhaler (Ventolin HFA) Shortness Of Breath Or Wheezing buspirone 5 mg tablet 5 mg PO BID 07/21/24 09/01/24 History celecoxib 200 mg capsule 400 mg PO QAM 07/21/24 09/01/24 History empagliflozin 25 mg tablet 25 mg PO QAM 07/21/24 09/01/24 History (Jardiance) furosemide 40 mg tablet 40 mg PO QAM 07/21/24 09/01/24 History metformin 500 mg tablet,extended 1,000 mg PO QAM 07/21/24 09/01/24 History release 24 hr metoprolol succinate 25 mg 25 mg PO QAM 07/21/24 09/01/24 History tablet,extended release 24 hr spironolactone 25 mg tablet 25 mg PO QAM 07/21/24 09/01/24 History albuterol sulfate 2.5 mg/3 mL 2.5 mg inhalation DIRECTED PRN 09/01/24 09/01/24 History (0.083 %) solution for nebulization sob tiotropium bromide 18 mcg capsule 18 mcg inhalation QAM 09/01/24 09/01/24 History with inhalation device Patient History Medical History (Updated 09/01/24 @ 13:49 by Latoya Rivas PA-C) Osteoarthritis Anxiety Morbid obesity Hepatic steatosis MARY (obstructive sleep apnea) CPAP T2DM (type 2 diabetes mellitus) HLD (hyperlipidemia) Peripheral edema PVC (premature ventricular contraction) Cellulitis of left leg Back pain Kidney stones Hypertension Surgical History History of arthroscopy of left shoulder History of colonoscopy History of tooth extraction History of cardiac radiofrequency ablation 2018 @ [facility]--follows with [facility] History of cardiac cath 2006 @ [facility], no stents S/P carpal tunnel release right hand History of lumbar laminectomy x2 History of tonsillectomy and adenoidectomy History of arthroscopy of left knee x2 Family History Mother Mycosis fungoides Father CUENCA (nonalcoholic steatohepatitis) Other Cancer Gallbladder disease Hypertension Social History Smoking Status: Never smoker Second Hand Exposure: No; Do You Dip or Chew Tobacco: No; Hx Alcohol Use: No Hx Substance Use: No Preferred Language: Turkmen Communication Ability: Effective Visual Impairment: No Limitations Hearing Ability: Normal Advanced Manufacturing Consultant Required: No Beliefs That Will Affect Care: None marital status: Current Living Situation: Spouse Current Living Situation Comment: At home Feels Safe at Home: Yes Assistive Devices: Cane and Walker Review of Systems Review of Systems: All systems reviewed & are unremarkable except as noted in HPI & below Physical Exam Constitutional: WD/WN, vitals as above + obese; no acute distress Neck: + thick neck Respiratory: + not able to speak in complete sentence (Conversational dyspnea) Auscultation: + diminished lung sounds; no crackles, no rales and no rhonchi Cardiovascular: Rate/Rhythm: regular rate and + bradycardic Heart Sounds: no murmur (distant heart sounds, no audible murmur) Vessels: no JVD (no JVD evident - thick neck) Extremities: + edema (trace pretibial edema) Gastrointestinal (Abdomen): normal bowel sounds, soft, nontender, no hepatosplenomegaly Neurologic: PERRL, EOMI, accommodation nl, no face palsy, no dysarthria Results & Data Vital Signs (Past 12 Hours) Vital Signs Temp Pulse Pulse Resp BP BP Pulse Ox 09/01/24 12:00 68 09/01/24 11:14 54 L 18 140/77 98 09/01/24 11:14 56 L 20 09/01/24 10:00 50 L 18 145/77 H 100 09/01/24 08:46 52 L 09/01/24 08:44 52 L 18 135/68 99 09/01/24 07:51 98 09/01/24 07:47 98 09/01/24 07:35 36.8 C 60 18 186/93 H 98 O2 Del Method 09/01/24 12:00 09/01/24 11:14 Room Air 09/01/24 11:14 Room Air 09/01/24 10:00 Room Air 09/01/24 08:46 09/01/24 08:44 Room Air 09/01/24 07:51 Room Air 09/01/24 07:47 Room Air 09/01/24 07:35 Room Air Laboratory Results Cardiac Enzymes 09/01/24 09/01/24 Range/Units 07:50 09:09 AST 16 (13-39) U/L Troponin I High Sens 9.3 7.3 (0-20) pg/ml Coagulation 09/01/24 Range/Units 07:47 PT 10.9 (9.0-12.0) Seconds APTT 24 (21-31) Seconds CBC 09/01/24 Range/Units 07:47 WBC 6.22 (4.8-10.8) K/ul RBC 5.41 (4.70-6.10) M/uL Hgb 16.3 (14.0-18.0) g/dl Hct 47.9 (42.0-52.0) % Plt Count 253 (130-400) K/uL Neut # (Auto) 3.58 (1.40-6.50) K/uL Lymph # (Auto) 1.62 (1.20-3.40) K/uL [place] # (Auto) 0.78 H (0.11-0.59) K/uL Eos # (Auto) 0.15 (0.00-0.50) K/uL Baso # (Auto) 0.06 (0.00-0.20) K/uL Comprehensive Metabolic Panel 09/01/24 Range/Units 07:50 Sodium 138 (136-145) mmol/L Potassium 4.2 (3.5-5.1) mmol/L Chloride 103 (98-107) mmol/L Carbon Dioxide 27 (21-32) mmol/L BUN 25 H (6-23) mg/dl Creatinine 1.29 (0.6-1.4) mg/dl Glucose 132 H (70-99(Fasting)) mg/dl Calcium 9.2 (8.6-10.3) mg/dl AST 16 (13-39) U/L ALT 17 (7-52) U/L Alkaline Phosphatase 59 (34-104) U/L Total Protein 6.7 (6.0-8.3) gm/dl Albumin 4.0 (3.4-5.0) gm/dl Intake and Output 08/31/24 09/01/24 09/01/24 22:59 06:59 14:59 Other: Weight 129.9 kg Weight Measurement Method Built in [facility] Patient Weight 09/02/24 06:59 Weight 129.9 kg Diagnostic Findings Telemetry reviewed: Sinus bradycardia, occ PVC EKG reviewed from admission dated 09/01/24: Sinus bradycardia at 55 bmp RBBB old septal infarct no change from previous Chest X-Ray 09/01/24 07:47 XR chest 1V portable CLINICAL HISTORY: Chest pain, nonspecific COMPARISON STUDY: 07/21/2024 FINDINGS: Stable mild cardiomegaly without pulmonary vascular congestion. No effusion, consolidation, or pneumothorax. IMPRESSION: No acute findings. Head CT 09/01/24 08:03 FINDINGS: No intracranial hemorrhage seen. No mass effect, midline shift, or hydrocephalus. There are mild chronic small vessel ischemic changes. No skull fracture seen. Visualized paranasal sinuses and mastoid air cells are clear. IMPRESSION: No acute findings. Head CTA 09/01/24 08:03 CT angio neck with con, CT angio head w con CLINICAL HISTORY: L hand numb/weak. TECHNIQUE: Following the IV administration of 120 of Optiray, CT angiogram of the neck and brain was performed from the aortic arch to the skull base. Images are reviewed in the axial, sagittal, and coronal planes. 3-D MIPS images are created and assessed. IV contrast was administered without complication. All measurements were calculated based on NASCET criteria. A dose lowering te chnique was utilized adhering to the principles of ALARA. CT DOSE: 1362.11 mGy.cm COMPARISON STUDY: None FINDINGS: The origin of the left common carotid artery is off the field of view inferiorly. There are mild calcifications at the carotid bulbs and distally at the internal carotid arteries. No significant narrowing or occlusion seen at the common or internal carotid arteries bilaterally. There are calcifications distally at the vertebral arteries. There is moderate narrowing distally at the left vertebral artery. There is mild narrowing at the origin of the left vertebral artery. No other significant narrowing or occlusion seen at the vertebral arteries. Basilar artery is widely patent. Anterior, middle, and posterior cerebral arteries are patent bilaterally. Cerebral venous sinuses opacify normally. There are diffuse degenerative changes at the cervical spine. IMPRESSION: 1. Moderate narrowing distally at the left vertebral artery. 2. No other significant arterial narrowing or occlusion seen at the neck or brain. ACT 112: Negative or not required by law. Neck CTA 09/01/24 08:03 CT angio neck with con, CT angio head w con CLINICAL HISTORY: L hand numb/weak. TECHNIQUE: Following the IV administration of 120 of Optiray, CT angiogram of the neck and brain was performed from the aortic arch to the skull base. Images are reviewed in the axial, sagittal, and coronal planes. 3-D MIPS images are created and assessed. IV contrast was administered without complication. All measurements were calculated based on NASCET criteria. A dose lowering technique was utilized adhering to the principles of ALARA. CT DOSE: 1362.11 mGy.cm COMPARISON STUDY: None FINDINGS: The origin of the left common carotid artery is off the field of view inferiorly. There are mild calcifications at the carotid bulbs and distally at the internal carotid arteries. No significant narrowing or occlusion seen at the common or internal carotid arteries bilaterally. There are calcifications distally at the vertebral arteries. There is moderate narrowing distally at the left vertebral artery. There is mild narrowing at the origin of the left vertebral artery. No other significant narrowing or occlusion seen at the vertebral arteries. Basilar artery is widely patent. Anterior, middle, and posterior cerebral arteries are patent bilaterally. Cerebral venous sinuses opacify normally. There are diffuse degenerative changes at the cervical spine. IMPRESSION: 1. Moderate narrowing distally at the left vertebral artery. 2. No other significant arterial narrowing or occlusion seen at the neck or brain. ACT 112: Negative or not required by law. Brain MRI 09/01/24 09:14 MR brain wo con CLINICAL HISTORY: eval for stroke COMPARISON STUDY: CT earlier today and MRI of 07/12/2011 FINDINGS: No restricted diffusion seen to suggest acute infarction. No mass effect, midline shift, or hydrocephalus. There are moderate scattered foci of increased FLAIR signal intensity in the periventricular white matter which is nonspecific, but usually represents chronic small vessel ischemic change. IMPRESSION: No evidence of acute infarction. Prior outpatient data reviewed: Cardiac cath report reviewed from July 2024: Coronary disease - hemodynamically insignificant -Mild luminal irregularities Echo in Apr 2024: Interpretation Summary The left ventricular cavity size is normal. The LV wall thickness is mildly increased (concentric). The septal motion is abnormal consistent with right ventricular volume overload. The qualitative LV ejection fraction is 55-59% (normal). The right ventricular cavity is mildly dilated. The right ventricular systolic function is normal as assessed by tricuspid annular plane systolic excursion (TAPSE) (normal >1.7 cm). Mild aortic valve sclerosis is present. There is trace mitral and tricuspid insufficiency There is no evidence of pulmonary hypertension. Medications Administered Current Inpatient Medications Acetaminophen (Acetaminophen 325 Mg Tab) 650 mg PO Q4H PRN PRN Reason: Pain or Fever Stop: 10/01/24 10:08 Albuterol (Albuterol Hfa 8 Gm Inhaler) 2 puffs INH Q4H PRN PRN Reason: Shortness Of Breath Or Wheezing Stop: 10/01/24 10:13 Aspirin (Aspirin 81 Mg Chew) 81 mg PO QAM [facility] Stop: 10/01/24 10:14 Last Admin: 09/01/24 10:50 Dose: Not Given Buspirone HCl (Buspirone 5 Mg Tab) 5 mg PO BID [facility] Stop: 10/01/24 20:59 Dextrose (Dextrose 50% 50 Ml Syringe) 25 - 50 ml IV UD PRN; Protocol PRN Reason: Hypoglycemia Protocol Stop: 10/01/24 10:08 Empagliflozin (Empagliflozin 25 Mg Tab) 25 mg PO QAM [facility] Stop: 10/02/24 08:59 Furosemide (Furosemide 40 Mg Tab) 40 mg PO QAM [facility] Stop: 10/01/24 10:14 Last Admin: 09/01/24 12:18 Dose: 40 mg Glucagon (Glucagon For Inj 1 Mg Vial) 1 mg SQ UD PRN; Protocol PRN Reason: Hypoglycemia Protocol Stop: 10/01/24 10:08 Glucose (Glucose 40% Gel 15 Gm Tube) 15 - 30 gm PO UD PRN; Protocol PRN Reason: Hypoglycemia Protocol Stop: 10/01/24 10:08 Glucose (Glucose 10 Tab/Tube) 4 - 8 tab PO UD PRN; Protocol PRN Reason: Hypoglycemia Protocol Stop: 10/01/24 10:08 Heparin Sodium (Porcine) (Heparin Sod 5,000 Unit/0.5 Ml Vial) 5,000 units SQ Q8 [facility] Stop: 10/01/24 13:59 Insulin Aspart (Insulin Aspart Per Unit Charge) 0 units SC ACHS [facility] Stop: 10/01/24 12:29 Last Admin: 09/01/24 12:40 Dose: 1 units Insulin Glargine (Lantus Per Unit Charge) 20 units SQ BID [facility] Stop: 10/01/24 20:59 Lactobacillus Acidophilus (Advanced Probiotic 625 Mg Capsule) [facility] Protocol Stop: 10/02/24 08:59 Magnesium Hydroxide (Magnesium Hydroxide Susp 30 Ml Udc) 30 ml PO Q12H PRN PRN Reason: Constipation Stop: 10/01/24 10:08 Metoprolol Succinate (Metoprolol Succ 25mg Ext Rel Tab) [facility] [place] Stop: 10/02/24 08:59 Miscellaneous (Carbohydrates For Hypoglycemia ) 15 - 30 gm PO UD PRN PRN Reason: Hypoglycemia Protocol Stop: 10/01/24 10:08 Miscellaneous Information (Pharmacy Glycemic Mgmt Consult) 1 each N/A UD PRN PRN Reason: Consult Stop: 10/01/24 10:08 Rosuvastatin Calcium (Rosuvastatin Calcium 20 Mg Tab) 20 mg PO [facility] Stop: 10/02/24 08:59 Spironolactone (Spironolactone 25 Mg Tab) 25 mg PO [facility] Stop: 10/02/24 08:59 Umeclidinium [place] (Umeclidinium [place] 62.5mcg/Blister 7 Puffs/Inhaler) 1 puffs INH [facility]; Protocol Stop: 10/02/24 08:59
--- NOTE | 2024-09-01 14:14 | Neurology Consultation ---
Date of Consultation September 01, 2024 Assessment & Plan (1) Stroke-like symptoms: No evidence of stroke per MRI/symptoms reportedly resolved Suspect TIA Recommend continued stroke work up to include the following: Echocardiogram as part of complete stroke workup Continue frequent neurological assessments Obtain stat CT brain without contrast for any acute neurological decline Continue to monitor/control blood pressure & blood glucose Continue to monitor telemetry closely Recommend ZioPatch at DC if no evidence of arrhythmia during inpatient monitoring Continue to monitor renal and hepatic function, keep euvolemic Metabolic workup should include hgbA1c, fasting lipids Recommend DAPT for 21 days then resume daily ASA as monotherapy Increase rosuvastatin dose to 20mg PO daily with goal of 40mg PO daily Recommend high dose statin therapy indefinitely if tolerated Ok from neurology perspective for VTE prophylaxis PT/OT/SLT to eval and treat Recommend CPAP QHS Telehealth Consultation Telehealth Information Telehealth Information: I performed this visit using a real-time telehealth connection between my location and the patients location ([facility]). After connecting through interactive tele-video, patient was identified by name and date of and/or wristband check.Patient (or authorized healthcare energy conservation representative) was informed that this was a telemedicine visit and it was being conducted confidentially over secure lines. My office door was closed and no one else was present in the room with me.Patient (or authorized healthcare energy conservation representative) provided consent to proceed with the visit, expressed an understanding of privacy and security of the telemedicine visit, and gave permission to have a hospital energy conservation representative in the room in order to assist with the visit and to conduct portions of the visit, as needed. I informed the patient (or authorized healthcare energy conservation representative) that I reviewed their record and presented the opportunity for them to ask any questions regarding the visit today. The patient agreed to participate. History of Present Illness Reason for Consultation: Stroke Like Symptoms Requesting Physician: Dr Valero Attending Physician: Pablo Valero MD History of Present Illness 69yo male with hx of HTN, hyperlipidemia, MARY CKD presents experiencing chest heaviness SOB reported left hand weakness and paresthesia as well fortunately now reportedly resolved. Has been reportedly adherent with daily ASA and low dose rosuvastatin. He has undergone emergent stroke imaging including CT brain without contrast, personally reviewed at today, revealing no overt evidence of hemorrhage. CT angiographic studies of head and neck, also personally reviewed today, reveal no overt evidence of large vessel occlusion or significant/flow limiting stenosis. He has undergone MRI brain without contrast revealing no overt evidence of acute ischemic stroke or other acute intracranial pathology. I have performed televideo consultation. He is alert & oriented; able to answer all questions appropriately, name objects on televideo monitor, repeat phrases and perform complex/embedded commands without deficit. Neurological exam is non lateralizing/nonfocal in terms of motor strength and coordination. He reports left hand symptoms completely resolved but still having chest complaint and SOB. Being followed by cardiology. at bedside, all questions answered. We have discussed recommendations for DAPT x 3 weeks then resume daily ASA as monotherapy and recommendations for increased dose of rosuvastatin indefinitely. Allergies Allergy/AdvReac Type Severity Reaction Status Date / Time atorvastatin [From Lipitor] AdvReac Intermediate Muscle Pain Verified 07/21/24 15:55 Home Medications Medication Instructions Recorded Confirmed Type aspirin 81 mg chewable tablet 81 mg PO QAM 01/01/18 09/01/24 History insulin aspart U-100 100 unit/mL 15 unit subcut QID 01/01/18 09/01/24 History (3 mL) subcutaneous pen (Novolog FlexPen U-100 Insulin aspart) insulin glargine 100 unit/mL (3 40 units subcut AMPM 01/01/18 09/01/24 History mL) subcutaneous pen (Lantus Solostar U-100 Insulin) rosuvastatin 10 mg tablet (Crestor) 10 mg PO QAM #30 tabs 08/11/21 09/01/24 Rx Lactobacillus acidophilus 10 10,000 mmu cells PO QAM 07/21/24 09/01/24 History billion cell capsule (Probiotic) albuterol sulfate 90 mcg/actuation 2 puff inhalation Q4H PRN 07/21/24 09/01/24 History aerosol inhaler (Ventolin HFA) Shortness Of Breath Or Wheezing buspirone 5 mg tablet 5 mg PO BID 07/21/24 09/01/24 History celecoxib 200 mg capsule 400 mg PO QAM 07/21/24 09/01/24 History empagliflozin 25 mg tablet 25 mg PO QAM 07/21/24 09/01/24 History (Jardiance) furosemide 40 mg tablet 40 mg PO QAM 07/21/24 09/01/24 History metformin 500 mg tablet,extended 1,000 mg PO QAM 07/21/24 09/01/24 History release 24 hr metoprolol succinate 25 mg 25 mg PO QAM 07/21/24 09/01/24 History tablet,extended release 24 hr spironolactone 25 mg tablet 25 mg PO QAM 07/21/24 09/01/24 History albuterol sulfate 2.5 mg/3 mL 2.5 mg inhalation DIRECTED PRN 09/01/24 09/01/24 History (0.083 %) solution for nebulization sob tiotropium bromide 18 mcg capsule 18 mcg inhalation QAM 09/01/24 09/01/24 History with inhalation device Patient History Medical History (Updated 09/01/24 @ 14:13 by Liborio Anaya DO) Osteoarthritis Anxiety Morbid obesity Hepatic steatosis MARY (obstructive sleep apnea) CPAP T2DM (type 2 diabetes mellitus) HLD (hyperlipidemia) Peripheral edema PVC (premature ventricular contraction) Cellulitis of left leg Back pain Kidney stones Hypertension Surgical History History of arthroscopy of left shoulder History of colonoscopy History of tooth extraction History of cardiac radiofrequency ablation 2017 @ [facility]--follows with [facility] History of cardiac cath 2006 @ [facility], no stents S/P carpal tunnel release right hand History of lumbar laminectomy x2 History of tonsillectomy and adenoidectomy History of arthroscopy of left knee x2 Family History Mother Mycosis fungoides Father CUENCA (nonalcoholic steatohepatitis) Other Cancer Gallbladder disease Hypertension Social History Smoking Status: Never smoker Second Hand Exposure: No; Do You Dip or Chew Tobacco: No; Hx Alcohol Use: No Hx Substance Use: No Preferred Language: Ukrainian Communication Ability: Effective Visual Impairment: No Limitations Hearing Ability: Normal Field Logistics Coordinator Required: No Beliefs That Will Affect Care: None marital status: Current Living Situation: Spouse Current Living Situation Comment: At home Feels Safe at Home: Yes Assistive Devices: Cane and Walker Physical Exam Neurological Examination: Mental Status: Awake and alert. Oriented to person, place, and time. Fluency naming repetition and comprehension appear grossly intact. Affect remains appropriate. CN testing: I: Deferred II: Reports no changes in visual acuity III/IV/: No evidence of gaze preference, hippus, nystagmus or roving eye movements V: Facial sensation reportedly grossly intact to light touch bilaterally VII: Facial movements appear without evidence of asymmetry VIII: Hearing appears grossly intact to loud voice bilaterally IX/X: Palate is unable to be accurately visualized XI: Shoulder shrug appears symmetric/ grossly intact bilaterally XII: Tongue protrudes midline without evidence of biting Motor exam: Strength appears grossly intact in all extremities Tone: Unable to accurately assess via telemedicine Sensory: Sensation is reportedly grossly intact throughout Coordination: No apparent evidence of dysmetria or dysdiadochokinesia Reflexes: Unable to accurately assess via telemedicine Gait: Deferred Results & Data Vital Signs (Past 12 Hours) Vital Signs Temp Pulse Pulse Resp BP BP Pulse Ox 09/01/24 13:09 36.7 C 53 L 13 122/66 97 09/01/24 12:00 68 09/01/24 11:14 54 L 18 140/77 98 09/01/24 11:14 56 L 20 09/01/24 10:00 50 L 18 145/77 H 100 09/01/24 08:46 52 L 09/01/24 08:44 52 L 18 135/68 99 09/01/24 07:51 98 09/01/24 07:47 98 09/01/24 07:35 36.8 C 60 18 186/93 H 98 O2 Del Method 09/01/24 13:09 Room Air 09/01/24 12:00 09/01/24 11:14 Room Air 09/01/24 11:14 Room Air 09/01/24 10:00 Room Air 09/01/24 08:46 09/01/24 08:44 Room Air 09/01/24 07:51 Room Air 09/01/24 07:47 Room Air 09/01/24 07:35 Room Air Laboratory Results Abnormal lab results 09/01/24 09/01/24 09/01/24 Range/Units 07:47 07:50 11:14 MPV 8.7 L (9.4-12.4) fL [place] # (Auto) 0.78 H (0.11-0.59) K/uL BUN 25 H (6-23) mg/dl Glucose 132 H (70-99(Fasting)) mg/dl POC Glucose 120 H (70-99) mg/dl Diagnostic Findings Chest X-Ray 09/01/24 07:47 XR chest 1V portable CLINICAL HISTORY: Chest pain, nonspecific COMPARISON STUDY: 07/21/2024 FINDINGS: Stable mild cardiomegaly without pulmonary vascular congestion. No effusion, consolidation, or pneumothorax. IMPRESSION: No acute findings. ACT 112: Negative or not required by law. Electronically signed by: Javier Love M.D. 09/01/2024 8:[address] 09/01/24 08:03 CT head/brain wo con CLINICAL HISTORY: L hand numbness/weakness. TECHNIQUE: Multiple axial CT images of the head were obtained without contrast. A dose lowering technique was utilized adhering to the principles of ALARA. CT DOSE: 1362 COMPARISON: 11/09/2018 FINDINGS: No intracranial hemorrhage seen. No mass effect, midline shift, or hydrocephalus. There are mild chronic small vessel ischemic changes. No skull fracture seen. Visualized paranasal sinuses and mastoid air cells are clear. IMPRESSION: No acute findings. ACT 112: Negative or not required by law. The above report was generated using voice recognition software. It may contain grammatical, syntax or spelling errors. Electronically signed by: Javier Love M.D. 09/01/2024 8:46 AM Head CTA 09/01/24 08:03 CT angio neck with con, CT angio head w con CLINICAL HISTORY: L hand numb/weak. TECHNIQUE: Following the IV administration of 120 of Optiray, CT angiogram of the neck and brain was performed from the aortic arch to the skull base. Images are reviewed in the axial, sagittal, and coronal planes. 3-D MIPS images are created and assessed. IV contrast was administered without complication. All measurements were calculated based on NASCET criteria. A dose lowering shayne hnique was utilized adhering to the principles of ALARA. CT DOSE: 1362.11 mGy.cm COMPARISON STUDY: None FINDINGS: The origin of the left common carotid artery is off the field of view inferiorly. There are mild calcifications at the carotid bulbs and distally at the internal carotid arteries. No significant narrowing or occlusion seen at the common or internal carotid arteries bilaterally. There are calcifications distally at the vertebral arteries. There is moderate narrowing distally at the left vertebral artery. There is mild narrowing at the origin of the left vertebral artery. No other significant narrowing or occlusion seen at the vertebral arteries. Basilar artery is widely patent. Anterior, middle, and posterior cerebral arteries are patent bilaterally. Cerebral venous sinuses opacify normally. There are diffuse degenerative changes at the cervical spine. IMPRESSION: 1. Moderate narrowing distally at the left vertebral artery. 2. No other significant arterial narrowing or occlusion seen at the neck or brain. ACT 112: Negative or not required by law. The above report was generated using voice recognition software. It may contain grammatical, syntax or spelling errors. Electronically signed by: Javier Love M.D. 09/01/2024 8:52 AM Neck CTA 09/01/24 08:03 CT angio neck with con, CT angio head w con CLINICAL HISTORY: L hand numb/weak. TECHNIQUE: Following the IV administration of 120 of Optiray, CT angiogram of the neck and brain was performed from the aortic arch to the skull base. Images are reviewed in the axial, sagittal, and coronal planes. 3-D MIPS images are created and assessed. IV contrast was administered without complication. All measurements were calculated based on NASCET criteria. A dose lowering technique was utilized adhering to the principles of ALARA. CT DOSE: 1362.11 mGy.cm COMPARISON STUDY: None FINDINGS: The origin of the left common carotid artery is off the field of view inferiorly. There are mild calcifications at the carotid bulbs and distally at the internal carotid arteries. No significant narrowing or occlusion seen at the common or internal carotid arteries bilaterally. There are calcifications distally at the vertebral arteries. There is moderate narrowing distally at the left vertebral artery. There is mild narrowing at the origin of the left vertebral artery. No other significant narrowing or occlusion seen at the vertebral arteries. Basilar artery is widely patent. Anterior, middle, and posterior cerebral arteries are patent bilaterally. Cerebral venous sinuses opacify normally. There are diffuse degenerative changes at the cervical spine. IMPRESSION: 1. Moderate narrowing distally at the left vertebral artery. 2. No other significant arterial narrowing or occlusion seen at the neck or brain. ACT 112: Negative or not required by law. The above report was generated using voice recognition software. It may contain grammatical, syntax or spelling errors. Electronically signed by: Javier Love M.D. 09/01/2024 8:52 AM Brain MRI 09/01/24 09:14 MR brain wo con CLINICAL HISTORY: eval for stroke COMPARISON STUDY: CT earlier today and MRI of 07/12/2011 FINDINGS: No restricted diffusion seen to suggest acute infarction. No mass effect, midline shift, or hydrocephalus. There are moderate scattered foci of increased FLAIR signal intensity in the periventricular white matter which is nonspecific, but usually represents chronic small vessel ischemic change. IMPRESSION: No evidence of acute infarction. ACT 112: Negative or not required by law. Electronically signed by: Javier Love M.D. 09/01/2024 11:35 AM Medications Administered Home Medications Medication Instructions Recorded Confirmed Last Taken aspirin 81 mg chewable tablet 81 mg PO QAM 01/01/18 09/01/24 07/21/24 insulin aspart U-100 100 unit/mL 15 unit subcut QID 01/01/18 09/01/24 07/21/24 12:00 (3 mL) subcutaneous pen (Novolog FlexPen U-100 Insulin aspart) insulin glargine 100 unit/mL (3 40 units subcut AMPM 01/01/18 09/01/24 07/21/24 08:00 mL) subcutaneous pen (Lantus Solostar U-100 Insulin) rosuvastatin 10 mg tablet (Crestor) 10 mg PO QAM #30 tabs 08/11/21 09/01/24 07/21/24 Lactobacillus acidophilus 10 10,000 mmu cells PO QAM 07/21/24 09/01/24 07/21/24 billion cell capsule (Probiotic) albuterol sulfate 90 mcg/actuation 2 puff inhalation Q4H PRN 07/21/24 09/01/24 Unknown aerosol inhaler (Ventolin HFA) Shortness Of Breath Or Wheezing buspirone 5 mg tablet 5 mg PO BID 07/21/24 09/01/24 07/21/24 celecoxib 200 mg capsule 400 mg PO QAM 07/21/24 09/01/24 07/21/24 empagliflozin 25 mg tablet 25 mg PO QAM 07/21/24 09/01/24 07/21/24 (Jardiance) furosemide 40 mg tablet 40 mg PO QAM 07/21/24 09/01/24 07/21/24 metformin 500 mg tablet,extended 1,000 mg PO QAM 07/21/24 09/01/24 07/21/24 release 24 hr metoprolol succinate 25 mg 25 mg PO QAM 07/21/24 09/01/24 07/21/24 tablet,extended release 24 hr spironolactone 25 mg tablet 25 mg PO QAM 07/21/24 09/01/24 07/21/24 albuterol sulfate 2.5 mg/3 mL 2.5 mg inhalation DIRECTED PRN 09/01/24 09/01/24 Unknown (0.083 %) solution for nebulization sob tiotropium bromide 18 mcg capsule 18 mcg inhalation QAM 09/01/24 09/01/24 Unknown with inhalation device Active Medications Generic Name Dose Route Start Last Admin Trade Name Freq PRN Reason Stop Dose Admin Aspirin 81 mg 09/01/24 10:15 09/01/24 10:50 Aspirin 81 Mg Chew PO 10/01/24 10:14 Not Given QAM WYATT Furosemide 40 mg 09/01/24 10:15 09/01/24 12:18 Furosemide 40 Mg Tab PO 10/01/24 10:14 40 mg QAM WYATT Administration Insulin Aspart 0 units 09/01/24 12:30 09/01/24 12:40 Insulin Aspart Per Unit Charge SC 10/01/24 12:29 1 units ACHS WYATT Administration
[2024-09-01] MEDS: FUROSEMIDE 40 MG/4 ML VIAL IV ONE (14:34)
[2024-09-01] MEDS: HEPARIN SOD 5,000 UNIT/0.5 ML VIAL SQ SCH (14:34)
--- NOTE | 2024-09-01 17:13 | Pharmacy Report ---
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
[2024-09-01] MEDS: busPIRone 5 MG TAB PO SCH (20:13)
[2024-09-01] MEDS: LANTUS PER UNIT CHARGE SQ SCH (20:14)
[2024-09-01] MEDS ORDERED: LANTUS PER UNIT CHARGE SQ SCH (21:00)
[2024-09-02] MEDS: ACETAMINOPHEN 325 MG TAB PO PRN (02:06)
[2024-09-02 06:12] LABS: Basophils # (auto) 0.07 K/uL (0.00-0.20); Basophils % (auto) 1.1 %; Eosinophils # (auto) 0.16 K/uL (0.00-0.50); Eosinophils % (auto) 2.5 %; Hematocrit (blood only) 49.5 % (42.0-52.0); Hemoglobin 16.8 g/dl (14.0-18.0); Immature Granulocytes # (auto) 0.03 K/uL (0.01-0.20); Immature Granulocytes % (auto) 0.5 %; Lymphocytes # (auto) 1.42 K/uL (1.20-3.40); Lymphocytes % (auto) 21.9 %; Mean Corpuscular Hemoglobin 30.3 pg (25.0-34.0); Mean Corpuscular Hgb Conc 33.9 g/dL (32.0-36.0); Mean Corpuscular Volume 89.4 fL (80.0-100.0); Mean Platelet Volume 8.8 fL (9.4-12.4); Monocytes # (auto) 0.77 K/uL (0.11-0.59); Monocytes % (auto) 11.9 %; Neutrophils # (auto) 4.04 K/uL (1.40-6.50); Neutrophils % (auto) 62.1 %; Platelet Count 245 K/uL (130-400); RDW Coefficient of Variation 13.7 % (11.5-14.5); Red Blood Count 5.54 M/uL (4.70-6.10); White Blood Count 6.49 K/ul (4.8-10.8)
[2024-09-02 06:34] LABS: BUN Creatinine Ratio 22.8 (10-20); Calcium 9.1 mg/dl (8.6-10.3); Chol HDL Ratio 6.6 (0-5); Creatinine Clr Calc Pharmacy 70.2 ml/min; Potassium 4.1 mmol/L (3.5-5.1)
[2024-09-02 07:11] LABS: Estimated Average Glucose 180 mg/dl; Hemoglobin A1C 7.9 % (4.5-5.6)
[2024-09-02 08:14] VITALS: PULSE 68
[2024-09-02] MEDS: ADVANCED PROBIOTIC 625 MG CAPSULE PO SCH (09:05)
[2024-09-02] MEDS: ROSUVASTATIN CALCIUM 20 MG TAB PO SCH (09:05)
[2024-09-02] MEDS: EMPAGLIFLOZIN 25 MG TAB PO SCH (09:06)
[2024-09-02] MEDS: SPIRONOLACTONE 25 MG TAB PO SCH (09:06)
[2024-09-02] MEDS: METOPROLOL SUCC 25MG EXT REL TAB PO SCH (09:06)
[2024-09-02] MEDS: UMECLIDINIUM BROMIDE 62.5MCG/BLISTER 7 PUFFS/INHALER INH SCH (09:07)
[2024-09-02 11:53] VITALS: BP 143/82; RESP 19; TEMP 98.2; O2SAT 97
--- NOTE | 2024-09-02 12:08 | Discharge Summary ---
Date of Service September 02, 2024 Admission HPI Per Admitting Provider History obtained from chart review and interview with the patient Past medical history of type 2 diabetes mellitus, diabetic peripheral neuropathy, hyperlipidemia, MARY on CPAP, mild persistent asthma, CHF with preserved EF, hypertension, frequent PVC, and stage IIIa CKD, generalized anxiety disorder. Last cardiac cath in July 17, 2024no obstructive coronary artery disease. Patient presented to the hospital with Substernal chest pressure which woke him up from his sleep around 5 AM. He reports that the pain was accompanied by pain in his left arm along with numbness. He also reports shortness of breath during the episode. The episode was also accompanied by weakness of tax advisor of his left arm. He reports that he gets chest pressure intermittently since last several months and has undergone several workup including recent cardiac cath. However, he reports that the chest pressure this time was accompanied by left arm numbness/pain which was not there before. He denies diaphoresis, fever, chills, abdominal pain or urinary symptoms. On presentation to the ED, he was afebrile, normotensive and saturating well on room air. CBC did not reveal any leukocytosis. BUN/creatinine at baseline. EKG showed normal sinus rhythm With right bundle branch block; no significant ST or T wave changes. Chest x-rayno acute finding. CT head did not show any acute findings. CTA head and neck showed moderate narrowing distally at left vertebral artery. Discussion was done with neurology on-call regarding patient's symptoms; recommended loading with Plavix 300 mg and 75 daily, workup for stroke with MRI brain, echocardiogram and increasing Crestor to 20 mg once a day. Admission Exam Per Admitting Provider On physical examination; Constitutional: WD/WN, vitals as above, NAD, sitting up in bed, pleasant, conversing easily Head: Normocephalic, Atraumatic Eyes: PERRL, conjunctivae normal, anicteric sclerae ENMT: external ear and nose normal, oropharynx normal Neck: trachea midline, no thyromegaly normal visual inspection Respiratory: normal respiratory effort, lungs clear to auscultation, no wheeze, rales, rhonchi. Normal insp/exp effort, no accessory muscle use Cardiovascular: RRR, no murmur, no edema Vessels: no JVD or carotid bruit Chest: normal inspection of chest Abdomen: normal bowel sounds, soft, nontender, no hepatosplenomegaly Musculoskeletal: no cyanosis or clubbing, extremities motor strength 5/5 Skin: no rashes, warm and dry normal turgor Neurologic: PERRL, EOMI, accommodation nl, no face palsy, no dysarthria CN's II- XI intact bilaterally and moves all extremities Psychiatric: A+Ox3, euthymic affect Principal Diagnosis Chest pain, ACS ruled out Acute on chronic diastolic heart failure TIA Discharge Exam Constitutional: WD/WN, vitals as above, NAD, sitting up in bed, pleasant, conversing easily Respiratory: normal respiratory effort, lungs clear to auscultation, no wheeze, rales, rhonchi. Normal insp/exp effort, no accessory muscle use Cardiovascular: RRR, no murmur, no edema Vessels: no JVD or carotid bruit Chest: normal inspection of chest Abdomen: normal bowel sounds, soft, nontender, no hepatosplenomegaly Musculoskeletal: no cyanosis or clubbing, extremities motor strength 5/5 Skin: no rashes, warm and dry normal turgor Neurologic: PERRL, EOMI, accommodation nl, no face palsy, no dysarthria CN's II- XI intact bilaterally and moves all extremities Psychiatric: A+Ox3, euthymic affect Discharge Data Allergies Allergy/AdvReac Type Severity Reaction Status Date / Time atorvastatin [From Lipitor] AdvReac Intermediate Muscle Pain Verified 07/21/24 15:55 Consultations 09/01/24 09:14 ED Decision to Admit Stat 09/01/24 10:09 Consult Cardiology Routine Consult Neurology Routine Ordered Studies 09/01/24 08:03 CT angio head w con Stat CT angio neck with con Stat CT head/brain wo con Stat 09/01/24 09:14 MR brain wo con Routine Hospital Course (1) Chest tightness: Plan Assessment/plan Recurrent Substernal Chest pressure Acute on chronic diastolic heart failure Patient presents to the hospital with substernal chest pressure with radiation to left arm/numbness. He EKG on admission shows normal sinus rhythm with a right bundle branch block; no ST or T wave changes High sensitive troponin negative x 2 Last cardiac cath in July 17, 2024no obstructive coronary artery disease. Patient was admitted to telemetry floor; cardiology was consulted for comanagement. He was diuresed with IV Lasix. At the time of the discharge, Lasix was increased from 40 mg once a day to 60 mg once a day. Left arm weakness/numbness Possible TIA Patient also had episode of decrease in left tax advisor strength during the episode which resolved spontaneously CT head did not show any acute findings. CTA head and neck showed moderate narrowing distally at left vertebral artery. MRI brain did not show any stroke Neurology was consulted for comanagement; patient was recommended to be placed on Plavix for 21 days along with increasing Crestor to 20 mg once a day. Please note the above document was generated using voice recognition software. It may contain grammatical, syntax or spelling errors. Any formal questions or concerns about the content, text or information contained within the body of this dictation should be directly addressed to the provider for clarification Total Time Total Time Spent Total Time Spent (In Minutes): 45 Total Time Includes: Examination of the Patient, Discharge Planning, Medication Reconciliation, Communication With Other Providers and Other Discharge Plan Discharge Items Patient Disposition: Home - Self-Care Reason For Visit: CHEST PAIN Discharge Diagnosis: Chest pain, rule out ACS TIA Condition on Discharge: Good Activity: Resume your previous activity Non-emergency contact: Primary Care Provider Call non-emergency contact if: you have any medication questions and your symptoms worsen Follow-up/Referrals: Liborio Mc MD [Primary Care Provider] - Diet: Regular Addtl Attending Provider Instructions: You are admitted to the hospital due to chest pressure and weakness of the left arm. You were evaluated by paper products machine operator and neurologist during the hospitalization. The study during the hospitalization did not show any stroke or heart attack. The following changes to your medication regimen have been made; Please take Plavix 20 mg once a day for 20 days Please take Crestor 20 mg once a day; the dose has been increased from 10 mg. Please stop taking Celebrex; you can take Tylenol instead for pain. Your dose of Lasix has been increased to 60 mg once a day from 40 mg once a day. Pending Studies at Discharge: No Stand-Alone Forms: My BO.LT, Smoking Cessation Medications and DC Order Prescriptions: New rosuvastatin 20 mg Tablet 20 mg PO QAM Qty: 30 0RF clopidogrel [Plavix] 75 mg tablet 75 mg PO DAILY 20 Days Qty: 20 0RF Continued aspirin 81 mg Tablet,Chewable 81 mg PO QAM insulin aspart U-100 [Novolog FlexPen U-100 Insulin] 100 unit/mL insulin pen 15 unit subcut QID Rx Instructions: COVERAGE DIRECTED BY SLIDING SCALE insulin glargine [Lantus Solostar U-100 Insulin] 100 unit/mL (3 mL) insulin pen 40 units subcut AMPM buspirone 5 mg tablet 5 mg PO BID spironolactone 25 mg tablet 25 mg PO QAM metoprolol succinate 25 mg tablet extended release 24 hr 25 mg PO QAM albuterol sulfate [Ventolin HFA] 90 mcg/actuation Hfa Aerosol Inhaler 2 puff INHALATION Q4H PRN (Reason: Shortness Of Breath Or Wheezing) metformin 500 mg tablet extended release 24 hr 1,000 mg PO QAM Probiotic 10 billion cell Capsule 10,000 mmu cells PO QAM Jardiance 25 mg tablet 25 mg PO QAM albuterol sulfate 2.5 mg /3 mL (0.083 %) solution for nebulization 2.5 mg inhalation DIRECTED PRN (Reason: sob) tiotropium bromide 18 mcg capsule, w/inhalation device 18 mcg INHALATION QAM Changed furosemide 40 mg tablet 60 mg PO QAM Qty: 0 0RF Rx Instructions: MAY TAKE ADDITIONAL DOSE IF WT INCREASES >2# IN 48 HRS, OR 5# IN A WEEK. Discontinued rosuvastatin [Crestor] 10 mg Tablet 10 mg PO QAM Qty: 30 0RF celecoxib 200 mg capsule 400 mg PO QAM Discharge Orders: Discharge Order (Routine); Ordered 09/02/24 Ordered By: Pablo Valero Admission Data Admit Date/Time: 09/01/24 10:09 Attending Provider: Pablo Valero Admit Provider: Pablo Valero Primary Care Provider: Liborio Mc Other Providers: Pablo Valero; Robby Chew Anthony C
--- NOTE | 2024-09-02 12:20 | Cardiology Progress Note ---
Date of Service September 02, 2024 Assessment & Plan (1) Chest tightness: (2) Left hand weakness: (3) Acute on chronic diastolic heart failure with preserved ejection fraction: (4) Acute on chronic right-sided congestive heart failure: (5) Sinus bradycardia: Plan 09/01/24 Patient admitted with worsening SOB/chest tightness, beginning overnight rating 6/10 substernal tightness with associated conversational dyspnea and left arm/hand tingling. EKG demonstrating NSR without acute ischemic changes HS troponin negative x2 Head/neck CTA unremarkable except for moderate narrowing of the left vertebral artery. He had recent heart cath July 2024 demonstrating only mild luminal irregularities of his coronary arteries. Continue ASA, statin, metoprolol. Symptoms are unlikely to be anginal equivalent. Chest xray with possible pulm vascular congestion per my review. Given his 10 lb weight gain over the last 1-2 months, worsening SOB, history of right heart failure, his symptoms are suggestive of acute on chronic HFpEF/right heart failure. Recommend trial of IV furosemide 40 mg x1 dose now. Acceptable to give in addition to his furosemide 40 mg PO already received this morning. Continue spironolactone 25 mg . monitor I+O's Daily weight with standing scale. Baseline bailey 260-270's per patient. Per review of outpatient weights, they has been trending upward over the last few months correlating with his symptoms. Monitor renal function and electrolytes. He has a history of bradycardia and intermittent accelerated junctional rhythm. HR currently in the 50's Continue metoprolol. Patient also has further work up from a pulmonary perspective next week at . Recent chest CT in July 2024 was negative for evidence of PE. MARY- with CPAP compliance -arrange for CPAP tonight 09/02/24 Acute HFpEF wiht symptoms of SOB/chest tightness - -responded well to IV diuresis with good urine outputs -weight down about 4 kg -Recommend increasing furosemide to 60 mg daily as outpatient (prior dose is 40 mg) Possible TIA -negative brain MRI -neurology notes reviewed -recommended echo with bubble study - ordered and results pending -recommend outpatient ZIO monitor - will arrange on discharge -DAPT recommended for 21 days Continue all other home medications including metoprolol, spironolactone, Jardiance, rosuvastatin, ASA Furosemide increased and plavix added by neurology. Further recommendations pending review of echo and discussion with Dr. Chew. Probable discharge today I spent a total of 40 minutes on the date of service in preparation, delivery, and documentation of the care provided to this patient, excluding any time spent in the performance of separately billed services. Latoya Rivas PA-C Department of Cardiology, [facility] [address] This chart was completed in part utilizing Speech Voice Recognition Software. Grammatical errors, random word insertions, pronoun errors, and incomplete sentences are an occasional consequence of this system due to software limitations, ambient noise, and hardware issues. Any formal questions or concerns about the content, text, or information contained within the body of this dictation should be directly addressed to the provider for clarification. Admission and Anticipated Discharge Date Admission Date: September 01, 2024 Supervising Physician Co-Signing Physician Notes Attending attestation: Case reviewed with the advanced practitioner. I have personally performed a history and physical examination on the patient. I have reviewed the advanced practitioner's documentation on the date of service referenced in note, and I agree with, and take responsibility for the plan of care. Patient seen. Limited exam performed. He states that chest tightness has resolved. Describes it is, unlike waves over the last 6 months. Only new component at this time was the transient left arm/hand tingling. Question if his symptoms are due to chronic diastolic dysfunction with need for increased diuretic dose. Echocardiogram is technically limited due to poor acoustic windows/pacing characteristics with normal LVEF. The resolution is insufficient to rule in or exclude the presence of a PFO. Discharge on furosemide 60 mg daily. Will arrange 14-day Zio patch for further assessment of TIA as per neurology recommendations. I spent a total of 20 minutes coordinating, documenting, and providing care for this patient excluding time spent in the performance of separately billed services or time spent by another provider. Robby Chew, DO Subjective Patient feeling well this morning. No recurrent chest tightness or dyspnea. Symptoms resolved late yesterday afternoon (after receiving IV lasix). good urine outputs noted. No recurrent hand tingling. Review of Systems Review of Systems: All systems reviewed & are unremarkable except as noted in HPI & below Physical Exam Constitutional: WD/WN, vitals as above + obese; no acute distress Neck: + thick neck Respiratory: able to speak in complete sentences; no labored breathing, no cough and not tachypneic Auscultation: + diminished lung sounds; no crackles, no rales and no rhonchi Cardiovascular: Rate/Rhythm: regular rate and + bradycardic Heart Sounds: no murmur (distant heart sounds, no audible murmur) Vessels: no JVD (no JVD evident - thick neck) Extremities: + edema (trace pretibial edema) Gastrointestinal (Abdomen): normal bowel sounds, soft, nontender, no hepatosplenomegaly Neurologic: PERRL, EOMI, accommodation nl, no face palsy, no dysarthria Results & Data Vital Signs (Past 12 Hours) Vital Signs Temp Pulse Pulse Resp BP Pulse Ox O2 Del Method 09/02/24 11:52 36.8 C 68 19 143/82 H 97 Room Air 09/02/24 08:13 36.7 C 68 18 156/77 H 95 Room Air 09/02/24 07:24 77 09/02/24 04:47 69 09/02/24 04:34 36.5 C 57 L 18 170/76 H 96 Room Air 09/02/24 02:12 64 21 96 FiO2 09/02/24 11:52 09/02/24 08:13 09/02/24 07:24 09/02/24 04:47 09/02/24 04:34 09/02/24 02:12 21 Laboratory Results Cardiac Enzymes 09/01/24 Range/Units 14:00 B-Natriuretic Peptide 20 (0-100) pg/ml Coagulation 09/01/24 Range/Units 14:00 B-Natriuretic Peptide 20 (0-100) pg/ml Lipids 09/02/24 Range/Units 05:37 Triglycerides 221 H (0-150) mg/dl Cholesterol 171 (0-200) mg/dl HDL Cholesterol 26 mg/dl Cholesterol/HDL Ratio 6.6 H (0-5) CBC 09/02/24 Range/Units 05:37 WBC 6.49 (4.8-10.8) K/ul RBC 5.54 (4.70-6.10) M/uL Hgb 16.8 (14.0-18.0) g/dl Hct 49.5 (42.0-52.0) % Plt Count 245 (130-400) K/uL Neut # (Auto) 4.04 (1.40-6.50) K/uL Lymph # (Auto) 1.42 (1.20-3.40) K/uL [place]ler # (Auto) 0.77 H (0.11-0.59) K/uL Eos # (Auto) 0.16 (0.00-0.50) K/uL Baso # (Auto) 0.07 (0.00-0.20) K/uL Comprehensive Metabolic Panel 09/02/24 Range/Units 05:37 Sodium 137 (136-145) mmol/L Potassium 4.1 (3.5-5.1) mmol/L Chloride 102 (98-107) mmol/L Carbon Dioxide 25 (21-32) mmol/L BUN 29 H (6-23) mg/dl Creatinine 1.27 (0.6-1.4) mg/dl Glucose 140 H (70-99(Fasting)) mg/dl Calcium 9.1 (8.6-10.3) mg/dl Intake and Output 09/01/24 09/02/24 09/02/24 22:59 06:59 14:59 Intake Total 280 / 280 Output Total 1200 / 1200 Balance -920 / -920 Intake: Oral 280 / 280 Output: Urine 1200 / 1200 Other: Weight 125.3 kg Weight Measurement Method Standing Scale Patient Weight 09/03/24 06:59 Weight 125.3 kg Diagnostic Findings Telemetry reviewed: Normal sinus rhythm in the 70s with occasional PVCs Echocardiogram ordered and results pending Medications Administered Current Inpatient Medications Acetaminophen (Acetaminophen 325 Mg Tab) 650 mg PO Q4H PRN PRN Reason: Pain or Fever Stop: 10/01/24 10:08 Last Admin: 09/02/24 02:06 Dose: 650 mg Albuterol (Albuterol Hfa 8 Gm Inhaler) 2 puffs INH Q4H PRN PRN Reason: Shortness Of Breath Or Wheezing Stop: 10/01/24 10:13 Aspirin (Aspirin 81 Mg Chew) 81 mg PO QAM [facility] Stop: 10/01/24 10:14 Last Admin: 09/02/24 09:11 Dose: 81 mg Buspirone HCl (Buspirone 5 Mg Tab) 5 mg PO BID [facility] Stop: 10/01/24 20:59 Last Admin: 09/02/24 09:06 Dose: 5 mg Dextrose (Dextrose 50% 50 Ml Syringe) 25 - 50 ml IV UD PRN; Protocol PRN Reason: Hypoglycemia Protocol Stop: 10/01/24 10:08 Empagliflozin (Empagliflozin 25 Mg Tab) 25 mg PO QAM [facility] Stop: 10/02/24 08:59 Last Admin: 09/02/24 09:06 Dose: 25 mg Furosemide (Furosemide 40 Mg Tab) 40 mg PO QAM [facility] Stop: 10/01/24 10:14 Last Admin: 09/02/24 10:23 Dose: 40 mg Glucagon (Glucagon For Inj 1 Mg Vial) 1 mg SQ UD PRN; Protocol PRN Reason: Hypoglycemia Protocol Stop: 10/01/24 10:08 Glucose (Glucose 40% Gel 15 Gm Tube) 15 - 30 gm PO UD PRN; Protocol PRN Reason: Hypoglycemia Protocol Stop: 10/01/24 10:08 Glucose (Glucose 10 Tab/Tube) 4 - 8 tab PO UD PRN; Protocol PRN Reason: Hypoglycemia Protocol Stop: 10/01/24 10:08 Heparin Sodium (Porcine) (Heparin Sod 5,000 Unit/0.5 Ml Vial) 5,000 units SQ Q8 [facility] Stop: 10/01/24 13:59 Last Admin: 09/02/24 06:28 Dose: 5,000 units Insulin Aspart (Insulin Aspart Per Unit Charge) 0 units SC ACHS [facility] Stop: 10/01/24 12:29 Last Admin: 09/02/24 09:07 Dose: 6 units Insulin Glargine (Lantus Per Unit Charge) 0 units SQ BID [facility]; Protocol Stop: 10/01/24 20:59 Last Admin: 09/02/24 09:08 Dose: 20 units Lactobacillus Acidophilus (Advanced Probiotic 625 Mg Capsule) 1,250 mg PO [facility]; Protocol Stop: 10/02/24 08:59 Last Admin: 09/02/24 09:05 Dose: 1,250 mg Magnesium Hydroxide (Magnesium Hydroxide Susp 30 Ml Udc) 30 ml PO Q12H PRN PRN Reason: Constipation Stop: 10/01/24 10:08 Metoprolol Succinate (Metoprolol Succ 25mg Ext Rel Tab) [facility] Stop: 10/02/24 08:59 Last Admin: 09/02/24 09:06 Dose: 25 mg Miscellaneous (Carbohydrates For Hypoglycemia ) 15 - 30 gm PO UD PRN PRN Reason: Hypoglycemia Protocol Stop: 10/01/24 10:08 Miscellaneous Information (Pharmacy Glycemic Mgmt Consult) 1 each N/A UD PRN PRN Reason: Consult Stop: 10/01/24 10:08 Rosuvastatin Calcium (Rosuvastatin Calcium 20 Mg Tab) 20 mg PO [facility] Stop: 10/02/24 08:59 Last Admin: 09/02/24 09:05 Dose: 20 mg Spironolactone (Spironolactone 25 Mg Tab) 25 mg PO [facility] Stop: 10/02/24 08:59 Last Admin: 09/02/24 09:06 Dose: 25 mg Umeclidinium Carmen (Umeclidinium Carmen 62.5mcg/Blister 7 Puffs/Inhaler) 1 puffs INH [facility]; Protocol Stop: 10/02/24 08:59 Last Admin: 09/02/24 09:07 Dose: 1 puffs
--- NOTE | 2024-09-04 13:40 | Electrocardiogram Report ---
Test Reason : Blood Pressure : */* mmHG Vent. Rate : 55 BPM Atrial Rate : 55 BPM P-R Int : 192 ms QRS Dur : 178 ms QT Int : 464 ms P-R-T Axes : 33 94 25 degrees QTcB Int : 443 ms Sinus bradycardia Right bundle branch block Septal infarct (cited on or before 01-Jan-2018) Abnormal ECG When compared with ECG of 21-Jul-2024 14:14, No significant change Confirmed by Aman Azevedo ([id number]) on 09/04/2024 1:39:46 PM Referred By: REFERRED SELF Confirmed By: Aman Azevedo
== END 2024-09-02 15:25 | disposition home or self-care (01) ==
LOC: ED 07:44 → INTOOBSV 10:09 → 2N 10:09